=== PATIENT | male | born 1945 | race Caucasian/White ===

== ENCOUNTER → 2022-01-10 | Day surgery (SDC) | payer OTHER, MEDICARE ==
[~2022-01-10] MED LIST: NA CHLORIDE 0.9% 250 ML ONE
[2022-01-10 08:35] VITALS: BP 117/81; TEMP 97.8; O2SAT 96; BMI 29.4
[2022-01-10 15:56] LABS: Hematocrit 28.6 % (39.6-49.0)
== END ==
LOC: DS 07:10
PROVIDERS: ATTEND Internal Medicine Hematology & Oncology
DX: D50.9 Iron deficiency anemia, unspecified (principal); C22.8 Malignant neoplasm of liver, primary, unspecified as to type; D69.6 Thrombocytopenia, unspecified; K74.69 Other cirrhosis of liver; K76.6 Portal hypertension; K76.9 Liver disease, unspecified; D50.0 Iron deficiency anemia secondary to blood loss (chronic)
CPT/HCPCS: 36415; 86900; 86850; 86901; 85018; 85014; 36430; P9016 ×2; J7050

== ENCOUNTER 2022-03-08 10:47 | Emergency (ER) | payer OTHER ==
--- OUTSIDE RECORDS SUMMARY | 2022-03-08 10:51 | XMS REPORT | Continuity of Care Document ---
:1945 Author Organization [facility] t Address [address] [place] [address] [address]. [address] [place] [address] Care Team Providers Name Role Phone GEORGI VALERIE Primary Care Physician Unavailable Alex Poole MD Attending Clinician ALEX POOLE Attending Clinician Unavailable Pob1, Acute Care Clinic Attending Clinician Unavailable Cari Sandoval Attending Clinician Nathan Adams PA-C Attending Clinician Lab, Adc Fam Pob I Attending Clinician Unavailable Edilma Laura Attending Clinician EDILMA FLOR Attending Clinician Unavailable ALEX POOLE Admitting Clinician Unavailable Payers Payer Name Policy Type Policy Number Effective Date Expiration Date S ource Problems Condition Condition Condition Status Onset Resolution Last Treating Co mments Source Name Details Category Date Date Treatment Clinician Date Diskitis Diskitis Disease Active Metho di 10-18 00:00: Hospita 00 l No known No known Disease Unive rs active active ity of problems problems [facility] Allergies, Adverse Reactions, Alerts Allergy Allergy Status Severity Reaction(s) Onset Inactive Treating Comm ents Source Name Type Date Date Clinician NO KNOWN Drug Active Univers ALLERGIE Class ity of S [facility] Social History Social Habit Start Date Stop Date Quantity Comments Source Exposure to 2021-12-01 2021-12-11 Not sure University SARS-CoV-2 00:00:00 13:24:00 [facility] (event) [place] Alcohol intake 2016-01-15 2016-01-15 Current [facility] 00:00:00 00:00:00 non-drinker of alcohol (finding) Tobacco use and 2016-01-11 2016-01-11 Smokeless tobacco [facility] exposure 00:00:00 00:00:00 non-user Tobacco Comment 2016-01-11 2016-01-11 quit cigars about [facility] 00:00:00 00:00:00 4 years ago History of 1996-01-11 Cigarette Smoker [facility] tobacco use 00:00:00 Sex Ass[birth year] [facility] 00:00:00 00:00:00 Smoking Status Start Date Stop Date Source Tobacco smoking [facility] consumption unknown Medical [facility] Ex-smoker 2016-01-11 00:00:00 2016-01-11 [facility] 00:00:00 Medications Ordered Filled Start Stop Current Ordering Indication Dosage Frequency Signature Comments Components Source Medication Medication Date Date Medication? Clinician (SIG) Name Name iopamidol 2021- No [id number] 110mL 110 mL, Univers (ISOVUE 12-11 Intravenou ity o f 370-500 mL) 20:45: 20:45 s, ONCE, 1 [place] injection 00 :00 dose, On Medica l 110 mL Tue [place] 12/11/21 at 1545, Routine metFORMIN Yes 1000mg Q.[id number] Take 1,000 Methodi (GLUCOPHAGE 01-10 [id number] mg by s t ) 1000 MG 14:58: 3D mouth 3 Hospi ta tablet 37 (three) l times a day. gabapentin Yes 400mg Q.72415190 Take 400 [facility] (NEURONTIN) 01-10 [id number] mg by s t 400 MG 14:58: 3D mouth 3 Hospita capsule 37 (three) l times a day. pravastatin 2015- Yes 40mg QD Take 40 mg Method[facility] (PRAVACHOL) 01-[address] 40 MG 14:58: daily. Hospita tablet 37 l sertraline Yes 100mg QD Take 100 Me thodi (ZOLOFT) 9-[address] 100 MG 14:58: mouth Hospita tablet 37 daily. l tamsulosin 2016-0 Yes .4mg QD Take 0.4 Met hodi (FLOMAX) 9-[address] 0.4 mg 14:58: mouth Hospita capsule,ext 37 daily. l ended release 24hr potassium 2016-0 Yes 10meq Q.5D Take 10 Meth danis chloride 9-[address] (K-DUR,KLOR 14:58: mouth 2 Hos boby -CON) 10 37 (two) l MEQ CR times a tablet day. losartan 2016-0 Yes 25mg QD Take 25 mg Met hodi (COZAAR) 50 -[address] MG tablet 14:58: daily. Hospit a 37 l finasteride 2015-0 Yes 5mg QD Take 5 mg M ethodi (PROSCAR) [address] mg tablet 14:58: daily. Hospit a 37 l hydrochloro 0 Yes 25mg QD Take 25 mg Method[facility] thiazide [address] (HYDRODIURI 14:58: daily. Hosp briana L) 25 MG 37 l tablet propranolol 0 Yes 40mg Take 40 mg [facility] (INDERAL) 01-[address] 40 MG 14:58: daily. Hospita tablet 37 l cyanocobala 0 Yes 100ug QD Take 100 M ethodi min 100 MCG - mcg by st tablet 14:58: mouth Hospita 37 daily. l insulin 0 Yes 25U QD 25 Units Method i detemir [address] (LEVEMIR) 14:58: Hospita 100 unit/mL 37 l injection esomeprazol 0 Yes 40mg QD Take 40 mg Methodi e (NexIUM) 01-[address] 40 MG 14:58: daily Hospita capsule 37 before l breakfast. therapeutic 2015-0 Yes 1{tbl} QD Take 1 Me thodi multivitami - tablet by st n 14:58: mouth Hospita (THERAGRAN) 37 daily. l tablet dorzolamide 0 Yes 1[drp] Q.5D Administer Methodi -timolol 01-[address] (COSOPT) 14:58: both eyes Hosp briana 22.3-6.8 37 2 (two) l mg/mL times a ophthalmic day. solution AMOXICILLIN 2016-0 Yes Q.5D Take by Met hodi ORAL -[address] 14:58: (two) Hospita 37 times a l day. pravastatin 2016-0 Yes 40mg QD Take 40 mg Method[facility] (PRAVACHOL) 9-[address] 40 MG 14:58: daily. Hospita tablet 37 l sertraline 2016-0 Yes 100mg QD Take 100 Me thodi (ZOLOFT) 9-[address] 100 MG 14:58: mouth Hospita tablet 37 daily. l tamsulosin 2016-0 Yes .4mg QD Take 0.4 Met hodi (FLOMAX) 9-[address] 0.4 mg 14:58: mouth Hospita capsule,ext 37 daily. l ended release 24hr potassium 2016-0 Yes 10meq Q.5D Take 10 Meth danis chloride 9-[address] (K-DUR,KLOR 14:58: mouth 2 Hos boby -CON) 10 37 (two) l MEQ CR times a tablet day. losartan 2016-0 Yes 25mg QD Take 25 mg Met hodi (COZAAR) 50 9-[address] MG tablet 14:58: daily. Hospit a 37 l finasteride 2016-0 Yes 5mg QD Take 5 mg M ethodi (PROSCAR) 5 9-[address] mg tablet 14:58: daily. Hospit a 37 l hydrochloro 2016-0 Yes 25mg QD Take 25 mg Methodi thiazide -[address] (HYDRODIURI 14:58: daily. Hosp briana L) 25 MG 37 l tablet propranolol 20160 Yes 40mg Take 40 mg Method[facility] (INDERAL) 9-[address] 40 MG 14:58: daily. Hospita tablet 37 l cyanocobala 2016-0 Yes 100ug QD Take 100 M ethodi min 100 MCG 9-[address] tablet 14:58: mouth Hospita 37 daily. l insulin 2016-0 Yes 25U QD 25 Units Method i detemir 9-[address] (LEVEMIR) 14:58: Hospita 100 unit/mL 37 l injection esomeprazol 2016-0 Yes 40mg QD Take 40 mg Methodi e (NexIUM) 9-[address] 40 MG 14:58: daily Hospita capsule 37 before l breakfast. therapeutic 2016-0 Yes 1{tbl} QD Take 1 Me thodi multivitami 9-[address] n 14:58: mouth Hospita (THERAGRAN) 37 daily. l tablet dorzolamide Yes 1[drp] Q.5D Administer Methodi -timolol 01-[address] (COSOPT) 14:58: both eyes Hosp briana 22.3-6.8 37 2 (two) l mg/mL times a ophthalmic day. solution AMOXICILLIN Yes Q.5D Take by Met hodi ORAL 01-[address] 14:58: (two) Hospita 37 times a l day. metFORMIN Yes 1000mg Q.[id number] Take 1,000 Method[facility] (GLUCOPHAGE 01-10 [id number] mg by s t ) 1000 MG 14:58: 3D mouth 3 Hospi ta tablet 37 (three) l times a day. gabapentin Yes 400mg Q.[id number] Take 400 Method[facility] (NEURONTIN) 01-10 [id number] mg by s t 400 MG 14:58: 3D mouth 3 Hospita capsule 37 (three) l times a day. latanoprost Yes 1[drp] QD Administer Methodi (XALATAN) 10-[address] 0.005 % 00:00: both eyes Hospi ta ophthalmic 00 nightly. l solution latanoprost Yes 1[drp] QD Administer Methodi (XALATAN) 10-[address] 0.005 % 00:00: both eyes Hospi ta ophthalmic 00 nightly. l solution No known No Univers medications [facility] No known No Univers medications [facility] No known No Univers medications [facility] Vital Signs Vital Name Observation Time Observation Value Comments Source Systolic blood 2021-12-11 19:56:00 147 mm[Hg] [facility] Diastolic blood 2021-12-11 19:56:00 88 mm[Hg] Unive [facility] Heart rate 2021-12-11 19:56:00 78 /min Universi [facility] Respiratory rate 2021-12-11 19:56:00 13 /min [facility] Oxygen saturation in 2021-12-11 19:56:00 96 /min [facility] Arterial blood by [facility] Pulse oximetry Branch Body temperature 2021-12-11 17:37:00 36.06 Deepika [facility] Body height 2021-12-11 17:37:00 180.3 cm [facility] Body weight 2021-12-11 17:37:00 91.627 kg [facility] BMI 2021-12-11 17:37:00 28.17 kg/m2 [facility] Systolic blood 2019-10-18 19:49:00 149 mm[facility]Hg[facility] Diastolic blood 2019-10-18 19:49:00 87 mm[Hg] [facility] Heart rate 2019-10-18 19:49:00 81 /min [facility] Body temperature 2019-10-18 19:49:00 36.17 Deepika [facility] Respiratory rate 2019-10-18 19:49:00 16 /min [facility] Oxygen saturation in 2019-10-18 19:49:00 97 /min [facility] blood by [facility] Pulse oximetry Branch Procedures Procedure Date / Time Performing Clinician Source Performed ABORH CONFIRMATION (LAB 2021-12-11 19:45:00 Alex Poole [facility] ONLY) Medical [place] CT ANGIOGRAM 2021-12-11 19:36:42 Alex Poole [facility] ABDOMEN/PELVIS [facility] XR CHEST 1 VW 2021-12-11 18:35:31 [facility] LACTIC ACID WHOLE BLOOD 2021-12-11 18:21:00 Alex Poole [facility] HB ABO GROUPING 2021-12-11 18:20:00 [facility] Alex [facility] LIPASE 2021-12-11 18:19:00 [facility] TROPONIN I 2021-12-11 18:19:00 [facility] COMP. METABOLIC PANEL 2021-12-11 18:19:00 Alex Poole [facility] ([id number]) Medical [place] CBC WITH DIFF 2021-12-11 18:19:00 [facility] Alex [facility] PROTHROMBIN TIME / INR 2021-12-11 18:19:00 Alex Poole Unive [facility] ACTIVATED PARTIAL 2021-12-11 18:19:00 Alex Poole [facility] THRMPLAS VIKKI [facility] URINALYSIS 2021-12-11 18:19:00 Alex Poole [place] [facility] N-TERMINAL PRO-BNP 2021-12-11 18:19:00 Alex Poole [facility] NOTICE OF PRIVACY 2021-12-11 17:30:58 Doctor Unassigned, No Univ [facility] PRACTICES Name [facility] Plan of Care Planned Activity Planned Date Details Comments Source Future Scheduled 2022-02-21 HEPATITIS B VACCINES [facility] Test 05:20:07 (1 of 3 - 3-dose series) [code = HEPATITIS B VACCINES (1 of 3 - 3-dose series)] Future Scheduled 2022-02-21 COVID-19 VACCINE (#1) [facility] Test 05:20:07 [code = COVID-19 VACCINE (#1)] Future Scheduled 2022-02-21 COLONOSCOPY SCREENING [facility] Test 05:20:07 [code = COLONOSCOPY SCREENING] Future Scheduled 2022-02-21 SHINGLES VACCINES (1 Met [facility] Test 05:20:07 of 2) [code = SHINGLES VACCINES (1 of 2)] Future Scheduled 2022-02-21 65+ PNEUMOCOCCAL [facility] Test 05:20:07 VACCINE (1 - PCV) [code = 65+ PNEUMOCOCCAL VACCINE (1 - PCV)] Future Scheduled 2022-02-21 INFLUENZA VACCINE Method [facility] Test 05:20:07 [code = INFLUENZA VACCINE] Future Scheduled 2021-12-19 HEPATITIS B VACCINES Met [facility] Test 20:37:05 (1 of 3 - 3-dose series) [code = HEPATITIS B VACCINES (1 of 3 - 3-dose series)] Future Scheduled 2021-12-19 COVID-19 VACCINE (#1) [facility] Hospital Test 20:37:05 [code = COVID-19 VACCINE (#1)] Future Scheduled 2021-12-19 COLONOSCOPY SCREENING [facility] Test 20:37:05 [code = COLONOSCOPY SCREENING] Future Scheduled 2021-12-19 SHINGLES VACCINES (1 [facility] Test 20:37:05 of 2) [code = SHINGLES VACCINES (1 of 2)] Future Scheduled 2021-12-19 65+ PNEUMOCOCCAL Methodi [facility] Test 20:37:05 VACCINE (1 - PCV) [code = 65+ PNEUMOCOCCAL VACCINE (1 - PCV)] Future Scheduled 2021-12-19 INFLUENZA VACCINE Method [facility] Test 20:37:05 [code = INFLUENZA VACCINE] Encounters Start End Encounter Admission Attending Care Care Encounter Source Date/Time Date/Time Type Type Clinicians Facility Department ID 2021-12-11 2021-12-11 [facility] [id number] Univers 12:44:00 15:46:00 Alex AMOR [id number] i [facility] [id number] [phone] [place] [id number] Branch 2021-12-11 2021-12-11 Emergency [facility] E[facility] [id number] Univers 12:44:00 15:46:00 ALEX moreno [facility] 2019-10-18 2019-10-30 Urgent Pob1, Acute Care Clinic [facility] [id number]. [id number] Univers 14:46:42 16:21:40 Care [facility] [id number] ity of [place] [id number] Nando as Professio [phone] [facility] nal [address] [place] [address] Office Building One 2019-10-20 2019-10-20 [facility]phone [facility] [id number] Univers 00:00:00 00:00:00 [facility] [id number] it y of [place] [id number] Nando as Professio [phone] Ne dical nal [address] [place] [address] Office Building One 2019-10-18 2019-10-18 Laboratory Lab, Adc Fam Pob I [facility] 1.2. [id number] Univers 14:38:53 14:58:53 Only Chacho Edilma [facility] [id number] ity of [place] [id number] [place]ando as Professio [phone] [facility] nal [address] [place] [address] Office Building One 2019-10-18 2019-10-18 Outpatient R CHACHO [facility] [id number] Univers 14:40:00 14:40:00 EDILMA [facility] 2019-10-18 2019-10-18 Outpatient R [facility] [id number] Univers 14:40:00 14:40:00 [facility] Results Test Description Test Time Test Comments Results Result Comments Source ABORH Confirmation (Lab Only) 2021-12-11 20:16:20 Test Item Value Reference Range Interpretation Comme nts ABO & RH (test code = 20) B Positive Pe rformed at [facility] Laboratory Services - [facility] Blood Hlwj[address]Toll Free: [phone] A No. [id number] [facility] Screen - ONCE [id number] 19:30:27 Test Item Value Reference Range Interpretation Comments ABO & RH (test code B Positive Performe d at [facility] = 20) Laboratory Serv [facility] Blood Bank[address] [place], [place] [address]Toll Free: [phone] A No. [id number] IAT (test code = Negative Performed a t [facility] 1185) Laboratory Serv [facility] Blood Bank1 [address] [place], [place] [address]Toll Free: [phone] A No. [id number] [facility] [id number] 19:05:15 Test Item Value Reference Interpretation Comments Range TROPONIN I (test 0.004 ng/mL See_Comment [Automated code = 2836855677) message] The system which generated this result transmitted reference range : <=0.034. The reference range was not used to interpret this result as normal/abnormal . MYKEL (test code = Reference (Normal) MYKEL) Range (defined by the 99th percentile reference limit): <= 0.034 ng/mL Note: Cardiac troponin begins to rise 3-4 hours after the onset of ischemia. Repeat in 4-6 hours if the sample was drawn within 3-4 hours of the onset of the symptom and found normal. Diagnosis of myocardial injury is made with acute changes in cTn concentrations with at least one serial sample above the 99th percentile upper reference limit (URL), taken together with the patient's clinical presentation. Biotin has been reported to cause a negative bias, interpret results relative to patient's use of biotin. Lab Interpretation Normal (test code = 60810-5) [facility]MINAL [id number] 19:01:53 Test Item Value Reference Range Interpretation Comments NT-proBNP (test code 140 pg/mL See_Comment [Autom ated = 2246103901) message] The system which generated this result transmitted reference range : <=450. The reference range was not used to interpret this result as normal/abnormal . MYKEL (test code = MYKEL) Biotin has been reported to cause a negative bias, interpret results relative to patient's use of biotin. Lab Interpretation Normal (test code = 43044-3) [facility]. METABOLIC PANEL (06193)2021-12-11 18:54:15 Test Item Value Reference Range Interpretation Comments NA (test code = 138 mmol/L 135-145 2767255700) K (test code = 4.0 mmol/L 3.5-5 7059655475) CL (test code = 103 mmol/L 98-108 6348593409) CO2 TOTAL (test code = 31 mmol/L 23-31 4727647743) AGAP (test code = 2-16 0640686615) BUN (test code = 19 mg/dL 7-23 8458485591) GLUCOSE (test code = 141 mg/dL 70-110 H 3900402019) CREATININE (test code = 0.53 mg/dL 0.6-1.25 L 9615851675) TOTAL BILI (test code = 1.7 mg/dL 0.1-1.1 H 4026362211) CALCIUM (test code = 9.0 mg/dL 8.6-10.6 8043598375) T PROTEIN (test code = 5.5 g/dL 6.3-8.2 L 0233467931) ALBUMIN (test code = 3.7 g/dL 3.5-5 2751667583) ALK PHOS (test code = 91 U/L 34-122 3829796310) ALTv (test code = 26 U/L 5-50 1742-6) AST(SGOT) (test code = 29 U/L 13-40 4619128727) eGFR (test code = mL/min/1.73m2 4849530067) MYKEL (test code = MYKEL) Association of Glomerular Filtration Rate (GFR) and Staging of Kidney Disease* + --+ --+ ------+| GFR (mL/min/1.73 m2) ?| With Kidney Damage ?| ?Without Kidney Damage+ --------+ --------+ +| ?>90 ?| ?Stage one ?| ? Normal ?+ ---+ ---+ -------+| ?60-89 ?| ?Stage two ?| ? Decreased GFR ? + --+ --+ ------+| ?30-59 ?| ?Stage three ?| ? Stage three ? + --+ --+ ------+| ?15-29 ?| ?Stage four ? | ? Stage four ?+ ---+ ---+ -------+| ?<15 (or dialysis) ? ?| ?Stage five ? | ? Stage five ?+ ---+ ---+ -------+ *Each stage assumes the associated GFR level has been in effect for at least three months. ?Stages 1 to 5, with or without kidney disease, indicate chronic kidney disease. Notes: Determination of stages one and two (with eGFR >59mL/min/1.73 m2) requires estimation of kidney damage for at least three months as defined by structural or functional abnormalities of the kidney, manifested by either:Pathological abnormalities or Markers of kidney damage (including abnormalities in the composition of the blood or urine or abnormalities in imaging tests). Lab Interpretation Abnormal (test code = 06032-6) [facility] 18:54:15 Test Item Value Reference Range Interpretation Comments LIPASE (test code = 0342169691) 115 U/L 0-220 Lab Interpretation (test code = Normal 02479-0) [facility] DistrictACTIV[facility] PARTIAL THRMPLAS [id number] 18:50:55 Test Item Value Reference Range Interpretation Comments APTT Patient (test See_Comment [Automat ed code = 3173-2) message] The system which generated this result transmitted reference range : 23 - 38 Seconds . The reference range was not used to interpr et this result as normal/abnormal . MYKEL (test code = MYKEL) The [facility] patient population mean normal value for aPTT is 30 seconds. Lab Interpretation Normal (test code = 01881-6) [facility] DistrictPROTHROMBIN TIME / [id number] 18:48:51 Test Item Value Reference Range Interpretation Comments PROTIME PATIENT (test See_Comment [Auto mated message] code = 5964-2) The system wh ich generated this result transmitted ref erence range: 12.0 - 1 4.7 Seconds. The re ference range was not u sed to interpret this result as normal/abnor mal. INR (test code = 6301-6) Nor mal INR <1.1; Warfarin Therap eutic range 2.0 to 3. 0 or 2.5 to 3.5, dep ending upon the indica tions. Lab Interpretation (test Normal code = 84049-6) [facility] DistrictCB WITH [id number] 18:41:33 Test Item Value Reference Range Interpretation Comments WBC (test code = See_Comment L [Automated 6690-2) message] The sy stem which generated this result transmitted reference range : 4.20 - 10.70 10*3/?L. The reference range was not used to interpret this result as normal/abnormal . RBC (test code = See_Comment L [Automated 789-8) message] The sy stem which generated this result transmitted reference range : 4.26 - 5.52 10*6/?L. The reference range was not used to interpret this result as normal/abnormal . HGB (test code = 8.7 g/dL 12.2-16.4 L 718-7) HCT (test code = 29.3 % 38.4-49.3 L 4544-3) MCV (test code = 84.7 fL 81.7-95.6 787-2) MCH (test code = 25.1 pg 26.1-32.7 L 785-6) MCHC (test code = 29.7 g/dL 31.2-35 L 786-4) RDW-SD (test code = 78.1 fL 38.5-51.6 H 36734-5) RDW-CV (test code = 26.1 % 12.1-15.4 H 788-0) PLT (test code = See_Comment L [Automated 777-3) message] The sy stem which generated this result transmitted reference range : 150 - 328 10*3/ ?L. The reference r karolina was not used to interpret this result as normal/abnormal . MPV (test code = 10.1 fL 9.8-13 90119-8) NRBC/100 WBC (test See_Comment [Automat ed code = 7223965576) message] The system which generated this result transmitted reference range : 0.0 - 10.0 /100 WBCs. The refer ence range was not u sed to interpret th is result as normal/abnormal . NRBC x10^3 (test code See_Comment [Auto mated = 8241037686) message] The s ystem which generated this result transmitted reference range : 10*3/?L. The reference range was not used to interpret this result as normal/abnormal . GRAN MAT (NEUT) % 74.1 % (test code = 770-8) IMM GRAN % (test code 0.50 % = 7809994212) LYMPH % (test code = 13.8 % 736-9) MONO % (test code = 7.7 % 5905-5) EOS % (test code = 3.4 % 713-8) BASO % (test code = 0.5 % 706-2) GRAN MAT x10^3(ANC) 3.07 10*3/uL 1.99-6.95 (test code = 3378777845) IMM GRAN x10^3 (test 0-0.06 code = 2391353671) LYMPH x10^3 (test code 0.57 10*3/uL 1.09-3.23 L = 731-0) MONO x10^3 (test code 0.32 10*3/uL 0.36-1.02 L = 742-7) EOS x10^3 (test code = 0.14 10*3/uL 0.06-0.53 711-2) BASO x10^3 (test code 0.01-0.09 = 704-7) Lab Interpretation Abnormal (test code = 10043-7) [facility]"
--- NOTE | 2022-03-08 12:20 | RAD REPORT ---
EXAM DESCRIPTION: CT - Abdomen Pelvis Wo Contrast - 03/08/2022 12:06 pm CLINICAL HISTORY: Abdominal pain, acute, nonlocalized COMPARISON: Chest Abdomen Pelvis W Cont dated 01/24/2022 TECHNIQUE: Axial [address] imaging of the abdomen and pelvis was performed without IV contrast. No IV contrast was given because of allergy, abnormal renal function, patient refusal or physician re quest. No oral contrast administered. All CT scans are performed using dose optimization technique as appropriate and may include automated exposure control or mA/KV adjustment according to patient size. FINDINGS: No acute lung base finding. No cardiomegaly or pericardial effusion. Liver size is normal. There is nodular liver capsule contour typical for cirrhosis or other diffuse h epatic parenchymal disease process. Punctate calcifications seen in the inferior aspect of the right lobe without associated mass. Mass assessment is limited in the absence of IV contrast. Spleen is pro minent but no focal splenic abnormality seen. No pancreatic or peripancreatic abnormality seen. Vascu lar calcifications are seen on vessels traversing the pancreatic and peripancreatic tissues. No hydronephrosis or suspicious renal mass. An 8 centimeter cyst is seen in the upper pole of the rig ht kidney. A 3 centimeter cyst is present in the lateral lower pole of the right kidney. No significa nt adrenal finding. Isodense renal masses and pyelonephritis cannot be excluded in the absence of IV contrast. The urinary bladder is without significant finding. Gastric lumen is decompressed accentuating wall thickness. No gross evidence for a gastric wall abnor mality. No acute small bowel finding. A primary colon process is not seen. There are areas of perista ltic luminal narrowing. No gross evidence for a colon mass. No free air or pneumatosis. Mild to moderate amount of ascites is present in the patient. No free ai r or pneumatosis. No hernia, mass or bulky lymphadenopathy. Disc and bone degenerative changes are present. No acute findings seen. 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 Moderate ascites also similar to the prior examination. No acute GI process is evident. No acute or emergent findings evident as a change from January 24 exam . Full assessment is limited is the absence of IV contrast.
[2022-03-08 12:29] LABS: Absolute Lymphocytes (CBC) 0.8 K/uL (0.7-4.9); Lymphocytes % 14.7 % (15.3-44.8); MCV 78.1 fL (80-100); RBC Red Blood Cell Count 2.56 M/uL (4.33-5.43)
[2022-03-08 12:32] LABS: Protime INR 1.27
[2022-03-08] MEDS ORDERED: PANTOPRAZOLE 40 MG INJ ONE ×2 (12:40→14:57)
[2022-03-08 12:58] LABS: Anisocytosis 2+; Blood Morphology Comment NOTED (NOT SEEN); Hypochromasia 2+; Platelet Estimate ADEQ; White Blood Cell Scan OK (OK)
[2022-03-08 13:12] LABS: SARS-CoV-2 Antigen Rapid Res Negative (Negative)
--- NOTE | 2022-03-08 13:39 | RAD REPORT ---
EXAM DESCRIPTION: RAD - Chest Single View - 03/08/2022 1:18 pm CLINICAL HISTORY: COUGH COMPARISON: Chest Single View dated 01/24/2022 FINDINGS: Lines: None. Lungs: No evidence of edema or pneumonia. Pleural: No significant pleural effusions or pneumothorax. Cardiac: The heart size is within normal limits. Mediastinum: Within normal limits. Bones: No acute fractures. Other: None IMPRESSION: No acute cardiopulmonary disease.
[2022-03-08 13:58] LABS: Albumin 2.8 g/dL (3.4-5.0); Bilirubin Direct 0.4 mg/dL (0-0.2); Bilirubin Total 1.1 mg/dL (0.2-1.0); Magnesium 1.6 mg/dL (1.8-2.4); Protein, Total 6.1 g/dL (6.4-8.2)
[2022-03-08 14:20] LABS: Troponin High Sensitivity 8.6 pg/mL (<58.9)
[2022-03-08] MEDS ORDERED: VITAMIN K (ADULT) 10 MG/ML ONE (14:56)
[2022-03-08] MEDS ORDERED: NA CHLORIDE 0.9% 250 ML ONE ×2 (14:57→16:11)
[2022-03-08] MEDS ORDERED: MAGNESIUM SULFATE 1 gm IVPB 1 GM/100 ML BAG IV ONE (14:57)
[2022-03-08] MEDS ORDERED: OCTREOTIDE ACETATE 100 MCG/ML ONE (14:58)
[2022-03-08] MEDS ORDERED: NA CHLORIDE 0.9% 1,000 ML ONE (14:58)
--- NOTE | 2022-03-08 15:13 | ER ---
Nurse's Notes [facility] Name: Abdoulaye Mcdonald Age: 76 yrs Sex: Male : 1945 Arrival Date: 03/08/2022 Time: 10:51 Bed 14 Private MD: Diagnosis: Other cirrhosis of liver;GI Bleed/ Gastrointestinal hemorrhage, unspecified;Anemia, unspecified;Hypomagnesemia Presentation: 03/08 11:38 Chief complaint: Patient states: DR Aburto sent over for "low blood" Pt stated feeling vg1 weak, burning CP and SOB. Also stated dark stools x 2 weeks and when wipe notices dark red blood. Coronavirus screen: Vaccine status: Patient reports receiving the 2nd dose of the covid vaccine. Client denies travel out of the [place] in the last 14 days. Ebola Screen: Patient negative for fever greater than or equal to 101.5 degrees Fahrenheit, and additional compatible Ebola Virus Disease symptoms. Initial Sepsis Screen: Does the patient meet any 2 criteria? No. Patient's initial sepsis screen is negative. Does the patient have a suspected source of infection? No. Patient's initial sepsis screen is negative. Risk Assessment: Do you want to hurt yourself or someone else? Patient reports no desire to harm self or others. Onset of symptoms was March 08, 2022. 11:38 Method Of Arrival: Ambulatory vg1 11:38 Acuity: BRANDON 3 vg1 Triage Assessment: 11:40 General: Appears uncomfortable, Behavior is calm, cooperative. Pain: Complains of pain vg1 in chest Pain currently is 5 out of 10 on a pain scale. Quality of pain is described as burning. Neuro: Level of Consciousness is awake, alert, obeys commands, Oriented to person, place, time, situation. GI: Abdomen is round distended, Reports bloody stool. Historical: - PMHx: 11:40 cirrhosis of liver; diabetes mellitus; Hypertensive disorder; vg1 - PSHx: 11:40 Cholecystectomy; back; vg1 - Immunization history:: Client reports receiving the 2nd dose of the Covid vaccine. - Social history:: Smoking status: Patient/guardian denies using tobacco, the patient reports quitting approximately 10 years ago. - Family history:: not pertinent. Screenin:00 Nutritional screening: No deficits noted. Tuberculosis screening: No symptoms or risk ke1 factors identified. Fall Risk None identified. 20:23 Abuse screen: Denies threats or abuse. ke1 Assessment: 11:45 Reassessment: see triage note. kr3 12:45 Reassessment: No changes from previously documented assessment. Patient and/or family kr3 updated on plan of care and expected duration. Pain level reassessed. Patient is alert, oriented x 3, equal unlabored respirations, skin warm/dry/pink. 13:45 Reassessment: No changes from previously documented assessment. Patient and/or family kr3 updated on plan of care and expected duration. Pain level reassessed. Patient is alert, oriented x 3, equal unlabored respirations, skin warm/dry/pink. 14:45 Reassessment: No changes from previously documented assessment. Patient and/or family kr3 updated on plan of care and expected duration. Pain level reassessed. Patient is alert, oriented x 3, equal unlabored respirations, skin warm/dry/pink. 15:45 Reassessment: No changes from previously documented assessment. Patient and/or family kr3 updated on plan of care and expected duration. Pain level reassessed. Patient is alert, oriented x 3, equal unlabored respirations, skin warm/dry/pink. 16:45 Reassessment: No changes from previously documented assessment. Patient and/or family kr3 updated on plan of care and expected duration. Pain level reassessed. Patient is alert, oriented x 3, equal unlabored respirations, skin warm/dry/pink. 17:45 Reassessment: No changes from previously documented assessment. Patient and/or family kr3 updated on plan of care and expected duration. Pain level reassessed. Patient is alert, oriented x 3, equal unlabored respirations, skin warm/dry/pink. 18:23 Reassessment: No changes from previously documented assessment. Patient and/or family kr3 updated on plan of care and expected duration. Pain level reassessed. Patient is alert, oriented x 3, equal unlabored respirations, skin warm/dry/pink. 20:22 Reassessment: unable to give mag incompatible with protonix and blood on the other line.ke1 20:25 Reassessment: 1939 Blood started. 10 mn later Ems arrived to picker patient, EMS will ke1 monitor blood transfusion. Vital Signs: 11:38 BP 143 / 101; Pulse 75; Resp 20; Temp 98.2; Pulse Ox 100% ; Weight 94.35 kg; Height 5 vg1 ft. 11 in. (180.34 cm); Pain 5/10; 12:45 BP 109 / 91; Pulse 81; Resp 18; Pulse Ox 100% on R/A; kr3 13:45 BP 116 / 59; Pulse 74; Resp 18; Pulse Ox 100% ; kr3 14:45 BP 115 / 60; Pulse 76; Resp 18; Pulse Ox 100% on R/A; kr3 15:45 BP 126 / 63; Pulse 79; Resp 18; Pulse Ox 100% ; kr3 16:45 BP 138 / 65; Pulse 80; Resp 18; Pulse Ox 100% ; kr3 17:45 BP 135 / 80; Pulse 82; Resp 18; Pulse Ox 99% on R/A; kr3 19:55 BP 124 / 70; Pulse 80; Resp 17; Temp 97.8(O); Pulse Ox 98% on R/A; Pain 0/10; ke1 11:38 Body Mass Index 29.01 (94.35 kg, 180.34 cm) vg1 ED Course: 10:51 Patient arrived in ED. as 11:40 Triage completed. vg1 11:40 Arm band placed on. vg1 11:46 Yasir Marie MD is Attending Physician. [facility] 12:07 CT Abd/Pelvis - Without Contrast In Process Unspecified. EDMS 12:10 Alexandra Villanueva, JANETT is Primary Nurse. kr3 12:28 Initial lab(s) drawn, by me, sent to lab. COVID swab sent to lab. T\\T\\S collected, blood jw7 band applied to patient. Inserted saline lock: 20 gauge in right antecubital area, using aseptic technique. Blood collected. 13:19 XRAY Chest (1 view) In Process Unspecified. EDMS 14:55 Inserted saline lock: 20 gauge in left antecubital area, using aseptic technique. kr3 15:30 AMMONIA Sent. kr3 15:31 Bb Add On Sent. kr3 16:10 have attempted to reach someone from the [facility] in attempt to transfer eb the patient but have been unsuccessful for over an hour. 16:13 intiated a transfer with Angela from the [place] transfer Center. eb 17:00 administrative approval by Angela Daniels / patient has been accepted to the [place] ER/ Dr. nani Gerardo has accepted the patient without conference with Dr. Marie/ report to be called to [phone]. 19:00 Bed in low position. ke1 20:23 No provider procedures requiring assistance completed. Patient transferred, IV remains ke1 in place. Administered Medications: 13:10 Drug: ProTONIX (pantoprazole) 80 mg Route: IVP; Site: right antecubital; kr3 15:45 Drug: ProTONIX (pantoprazole) 8 mg/hr Route: IV; Rate: 25 ml/hr; Site: right kr3 antecubital; 15:45 Drug: NS 0.9% 250 ml Route: IV; Rate: bolus; Site: right antecubital; kr3 15:45 Drug: NS 0.9% 1000 ml Route: IV; Rate: 125 ml/hr; Site: right antecubital; kr3 17:40 Drug: Vitamin K1 (phytonadione) 10 mg Route: Sub-Q; Site: right lower abdomen; kr3 17:45 Drug: SandoSTATIN (octreotide) 50 mcg Route: IV; Rate: calculated rate; Site: left kr3 antecubital; 19:49 Drug: SandoSTATIN (octreotide) 25 mcg/h Route: IV; Rate: per protocol; Site: right ke1 antecubital; Medication: 20:24 VIS not applicable for this client. ke1 Outcome: 15:12 ER care complete, transfer ordered by MD. hernandez 20:23 Transferred by ground EMS to [facility]. ke1 20:23 Condition: stable 20:23 Instructed on the need for transfer. 20:27 Patient left the ED. ke1 Signatures: Dispatcher [employer] EDYasir Garcia MD MD cha Martinez, Amelia as Botello, Elizabeth eb Garcia, Victoria, RN RN Katja Rose Kouassi, RN RN ke1 Alexandra Villanueva RN RN kr3 Corrections: (The following items were deleted from the chart) 18:23 18:22 Reassessment: kr3 kr3 18:23 18:23 Reassessment: see triage note. kr3 kr3
--- NOTE | 2022-03-08 15:13 | EDPHYS ---
Physician Documentation [facility] Name: Abdoulaye Mcdonald Age: 76 yrs Sex: Male : 1945 Arrival Date: 03/08/2022 Time: 10:51 Bed 14 Private MD: REBECCA Physician Yasir Marie HPI: 03/08 14:59 This 76 yrs old Male presents to ER via Ambulatory with complaints of mary Abnormal Lab Results - blood tranfusion. 14:59 The patient has shortness of breath with light activity. Onset: The symptoms/episode mary began/occurred 5 day(s) ago. Duration: The symptoms are continuous, and are unchanged since they started. The patient's shortness of breath is aggravated by exertion, light activity, is alleviated by rest. The patient or guardian reports chest pain that is located primarily in the anterior chest wall, bilaterally. Onset: 5 day(s) ago. The patient presents to the emergency department with rectal bleeding. Abdominal pain: described as crampy, located in the right upper quadrant, left upper quadrant, right lower quadrant and left lower quadrant. Modifying factors: The symptoms are alleviated by nothing, the symptoms are aggravated by nothing. weakness and fatigue, blood per rectum all week. The pain does not radiate. Associated signs and symptoms: Pertinent positives: chest pain, nausea. Severity of symptoms: At their worst the symptoms were mild moderate in the emergency department the symptoms are unchanged. Associated signs and symptoms: The patient has no apparent associated signs or symptoms. Associated signs and symptoms: Pertinent positives: shortness of breath. The chest pain is described as causing indigestion. Historical: - PMHx: 11:40 cirrhosis of liver; diabetes mellitus; Hypertensive disorder; vg1 - PSHx: 11:40 Cholecystectomy; back; vg1 - Immunization history:: Client reports receiving the 2nd dose of the Covid vaccine. - Social history:: Smoking status: Patient/guardian denies using tobacco, the patient reports quitting approximately 10 years ago. - Family history:: not pertinent. ROS: 14:59 Constitutional: Negative for fever, chills, and weight loss, Eyes: Negative for injury, mary pain, redness, and discharge, ENT: Negative for injury, pain, and discharge, Neck: Negative for injury, pain, and swelling, Respiratory: Negative for shortness of breath, cough, wheezing, and pleuritic chest pain, Back: Negative for injury and pain, : Negative for injury, bleeding, discharge, and swelling, MS/Extremity: Negative for injury and deformity, Neuro: Negative for headache, weakness, numbness, tingling, and seizure. 14:59 Cardiovascular: Positive for chest pain, of the chest. 14:59 Respiratory: Positive for cough, shortness of breath. 14:59 Abdomen/GI: Positive for abdominal cramps, abdominal distension, black/tarry stool, rectal bleeding. 14:59 Skin: Positive for pallor. Exam: 15:06 Constitutional: This is a well developed, well nourished patient who is awake, alert, mary and in no acute distress. Head/Face: Normocephalic, atraumatic. Eyes: Pupils equal round and reactive to light, extra-ocular motions intact. Lids and lashes normal. Conjunctiva and sclera are non-icteric and not injected. Cornea within normal limits. Periorbital areas with no swelling, redness, or edema. ENT: Nares patent. No nasal discharge, no septal abnormalities noted. Tympanic membranes are normal and external auditory canals are clear. Oropharynx with no redness, swelling, or masses, exudates, or evidence of obstruction, uvula midline. Mucous membranes moist. Neck: Trachea midline, no thyromegaly or masses palpated, and no cervical lymphadenopathy. Supple, full range of motion without nuchal rigidity, or vertebral point tenderness. No Meningismus. Chest/axilla: Normal chest wall appearance and motion. Nontender with no deformity. No lesions are appreciated. Cardiovascular: Regular rate and rhythm with a normal S1 and S2. No gallops, murmurs, or rubs. Normal PMI, no JVD. No pulse deficits. Respiratory: Lungs have equal breath sounds bilaterally, clear to auscultation and percussion. No rales, rhonchi or wheezes noted. No increased work of breathing, no retractions or nasal flaring. Back: No spinal tenderness. No costovertebral tenderness. Full range of motion. Male : Normal genitalia with no discharge or lesions. MS/ Extremity: Pulses equal, no cyanosis. Neurovascular intact. Full, normal range of motion. Neuro: Awake and alert, GCS 15, oriented to person, place, time, and situation. Cranial nerves II-XII grossly intact. Motor strength 5/5 in all extremities. Sensory grossly intact. Cerebellar exam normal. Normal gait. Psych: Awake, alert, with orientation to person, place and time. Behavior, mood, and affect are within normal limits. 15:06 ECG was reviewed by the Attending Physician. 15:06 Abdomen/GI: Inspection: distension, that is mild, that is moderate, Bowel sounds: normal, Palpation: nontender, in all quadrants, Rectal exam: Prostate: normal, rectal tone normal, Stool: guaiac positive, hemorrhoid(s), are not appreciated, mass, is not appreciated, swelling, is not appreciated, tenderness, is not appreciated, Liver: no appreciated palpable abnormalities, Hernia: not appreciated. Vital Signs: 11:38 BP 143 / 101; Pulse 75; Resp 20; Temp 98.2; Pulse Ox 100% ; Weight 94.35 kg; Height 5 vg1 ft. 11 in. (180.34 cm); Pain 5/10; 12:45 BP 109 / 91; Pulse 81; Resp 18; Pulse Ox 100% on R/A; kr3 13:45 BP 116 / 59; Pulse 74; Resp 18; Pulse Ox 100% ; kr3 14:45 BP 115 / 60; Pulse 76; Resp 18; Pulse Ox 100% on R/A; kr3 15:45 BP 126 / 63; Pulse 79; Resp 18; Pulse Ox 100% ; kr3 16:45 BP 138 / 65; Pulse 80; Resp 18; Pulse Ox 100% ; kr3 17:45 BP 135 / 80; Pulse 82; Resp 18; Pulse Ox 99% on R/A; kr3 19:55 BP 124 / 70; Pulse 80; Resp 17; Temp 97.8(O); Pulse Ox 98% on R/A; Pain 0/10; ke1 11:38 Body Mass Index 29.01 (94.35 kg, 180.34 cm) vg1 MDM: 11:46 Patient medically screened. mary 15:09 Differential diagnosis: Anemia CHF exacerbation, Chronic Obstructive Pulmonary Disease mary abnormal EKG, acute myocardial infarction, Cholelithiasis costochondritis, gastritis, diverticulitis, hemorrhoids, varices, esophagitis, gastritis, gastroesophageal reflux disease (GERD), hiatal hernia, peptic ulcer disease, pneumonia, stable angina, unstable angina, pneumonia, reactive airway disease, Unstable Angina. Antibiotic administration: zosyn. HEART Score: History: Moderately Suspicious (1), ECG: Non specific repolarization disturbance / LBTB / PM (1), Age: > or = 65 years (2), Risk Factors: > or = 3 Risk factors for atherosclerotic disease (2), [Hypercholesterolemia] [Hypertension] [DM] [+ Family HX] Troponin: < or = 1 x Normal Limit (0). The patient was not given aspirin in the Emergency Department. Not indicated due to patient's past medical history. The patient's Wells Deep Vein Thrombosis Score was calculated as follows: Total Score: 0. This patient was found to be at low risk for a deep vein thrombosis by using the Well's assessment criteria Total Score: 0-2 Pts- Low Risk. The patient's pulmonary embolism risk score was calculated as follows: Total Score: 0-2 points. This patient was found to be at low risk for a pulmonary embolism by using the Well's assessment criteria Total Score: 0-2 points. This patient was found to be at low risk for a pulmonary embolism by using the Well's assessment criteria. RADHA Risk Score: 1 - patient's age is greater or equal to 65 years, 1 - Three or more CAD risk factors, 1- Known CAD, TOTAL SCORE = 3. Immunization status: Pneumococcal vaccine: Influenza vaccine: Data reviewed: vital signs, nurses notes, lab test result(s), EKG, radiologic studies, CT scan, plain films. Data interpreted: teletypesetter monitor: rate is 75 beats/min, rhythm is regular, Pulse oximetry: on room air is 75 %. Interpretation: normal. 03/08 11:48 Order name: Basic Metabolic Panel; Complete Time: 14:39 [facility] 03/08 11:48 Order name: CBC with Diff; Complete Time: 14:39 [facility] 03/08 11:48 Order name: LFT's; Complete Time: 14:39 [facility] 03/08 11:48 Order name: Magnesium; Complete Time: 14:39 [facility] 03/08 11:48 Order name: NT PRO-BNP; Complete Time: 14:39 [facility] 03/08 11:48 Order name: PT-INR; Complete Time: 14:39 [facility] 03/08 11:48 Order name: Troponin HS; Complete Time: 14:39 [facility] 03/08 11:48 Order name: Type And Screen [facility] 03/08 11:48 Order name: SARS RAPID; Complete Time: 14:39 [facility] 03/08 11:48 Order name: Lipase; Complete Time: 14:39 [facility] 03/08 12:35 Order name: CBC Smear Scan; Complete Time: 14:39 [facility] 03/08 14:42 Order name: AMMONIA; Complete Time: 18:53 [facility] 03/08 14:47 Order name: Packed RBC Leukored [facility] 03/08 11:48 Order name: XRAY Chest (1 view); Complete Time: 14:39 [facility] 03/08 11:48 Order name: EKG; Complete Time: 11:49 [facility] 03/08 11:48 Order name: Cardiac monitoring; Complete Time: 13:30 [facility] 03/08 11:48 Order name: EKG - Nurse/Tech; Complete Time: 13:30 [facility] 03/08 11:48 Order name: CT Abd/Pelvis - Without Contrast; Complete Time: 14:39 [facility] 03/08 14:51 Order name: Bb Add On ss 03/08 15:41 Order name: Fresh Frozen Plasma [facility] 03/08 11:48 Order name: IV Saline Lock; Complete Time: 12:29 [facility] 03/08 11:48 Order name: Labs collected and sent; Complete Time: 12:29 [facility] 03/08 11:48 Order name: O2 Per Protocol; Complete Time: 13:30 [facility] 03/08 11:48 Order name: O2 Sat Monitoring; Complete Time: 13:30 [facility] 03/08 11:48 Order name: IV Saline Lock - Large Bore; Complete Time: 12:28 [facility] 03/08 14:41 Order name: Transfuse; Complete Time: 17:39 [facility] EC:06 Rate is 76 beats/min. Rhythm is regular. QRS [place] is Normal. RI interval is normal. QT mary interval is normal. No Q waves. T waves are Normal. No ST changes noted. Clinical impression: NSR w/ Non-specific ST/T Changes, LVH, and No evidence of ischemia. Interpreted by me. Reviewed by me. Administered Medications: 13:10 Drug: ProTONIX (pantoprazole) 80 mg Route: IVP; Site: right antecubital; kr3 15:45 Drug: ProTONIX (pantoprazole) 8 mg/hr Route: IV; Rate: 25 ml/hr; Site: right kr3 antecubital; 15:45 Drug: NS 0.9% 250 ml Route: IV; Rate: bolus; Site: right antecubital; kr3 15:45 Drug: NS 0.9% 1000 ml Route: IV; Rate: 125 ml/hr; Site: right antecubital; kr3 17:40 Drug: Vitamin K1 (phytonadione) 10 mg Route: Sub-Q; Site: right lower abdomen; kr3 17:45 Drug: SandoSTATIN (octreotide) 50 mcg Route: IV; Rate: calculated rate; Site: left kr3 antecubital; 19:49 Drug: SandoSTATIN (octreotide) 25 mcg/h Route: IV; Rate: per protocol; Site: right ke1 antecubital; Disposition Summary: 03/08/22 15:12 Transfer Ordered Reason: Higher level of care mary Condition: Fair mary Problem: new mary Symptoms: have improved mary Transfer Location: [facility](03/08/22 17:34) eb Accepting Physician: [facility]. Gerardo [facility](03/08/22 20:27) ke1 Diagnosis - Other cirrhosis of liver mary - GI Bleed/ Gastrointestinal hemorrhage, unspecified mary - Anemia, unspecified mary - Hypomagnesemia mary Forms: - Medication Reconciliation Form mary - SBAR form mary Signatures: Dispatcher [employer] EDMS Yasir Marie MD MD cha Botello, Elizabeth eb Garcia, Victoria RN RN vg1 Santana Whaley RN RN ke1 Alexandra Villanueva RN RN kr3 Corrections: (The following items were deleted from the chart) 15:24 14:47 FRESH FROZEN PLASMA+[id number] ordered. EDMS EDMS 15:24 14:49 ABO/RH typing ordered. EDMS EDMS 17:34 15:12 to [facility] [place] mary eb 17:34 15:12 [facility] mary eb 20:27 17:34 Dr. Gerardo [facility] eb ke1
[2022-03-08 21:33] VITALS: BP 124/70; TEMP 97.8; O2SAT 98
--- NOTE | 2022-03-09 19:12 | EKG ---
Test Date: 2022-03-08 Test Time: 13:14:06 Crimping Machine Operator For Metal: JOSÉ MEASUREMENT RESULTS: Intervals: Rate: 76 AL: 174 QRSD: 94 QT: 404 QTc: 454 [place]: P: 62 AL: 174 QRS: -22 T: -27 INTERPRETIVE STATEMENTS: Undetermined rhythm Minimal voltage criteria for LVH, may be normal variant Septal infarct, age undetermined Abnormal ECG Compared to ECG 01/24/2022 14:46:43 Myocardial infarct finding now present Sinus rhythm no longer present Electronically Signed On 03-09-22 19:10:28 CORD MAKER by Edwardo Adams
== END 2022-03-08 20:27 ==
LOC: ER 10:47
PROC: 30233K1 Transfusion of Nonautologous Frozen Plasma into Peripheral Vein, Percutaneous Approach (ICD-10-PCS; principal; 2022-03-08)
PROC: 30233N1 Transfusion of Nonautologous Red Blood Cells into Peripheral Vein, Percutaneous Approach (ICD-10-PCS; 2022-03-08)
DX: D64.9 Anemia, unspecified (principal); E83.42 Hypomagnesemia; K74.69 Other cirrhosis of liver; E11.9 Type 2 diabetes mellitus without complications; I10 Essential (primary) hypertension; Z20.822 Contact with and (suspected) exposure to COVID-19
CPT/HCPCS: 93005; 85025; 80048; 36415; 82140; 86900; 83735; 86850; 85610; 86901; 80076; 84484; 83690; 83880; 74176; 71045; 96372; 99285; 87811; 36430; J3430; J2354; C9113 ×2; J3475; P9016; P9059; J7050 ×2; J7030

== ENCOUNTER 2022-04-24 14:28 | Emergency (ER) | payer OTHER, MEDICARE ==
--- OUTSIDE RECORDS SUMMARY | 2022-04-24 14:34 | XMS REPORT | Continuity of Care Document ---
:1945 Author Organization [facility] t Address [address] [place] [address] Care Team Providers Name Role Phone GEORGI [...] rs active active ity of problems problems [facility] Allergies, Adverse Reactions, Alerts Allergy Allergy Status Severity Reaction(s) Onset Inactive Treating Comm ents Source Name Type Date Date Clinician NO KNOWN Drug Active Univers ALLERGIE Class ity of S [facility] Social History Social Habit Start Date Stop Date Quantity Comments Source Exposure to 2021-12-01 2021-12-11 Not sure University SARS-CoV-2 00:00:00 13:24:00 [facility] [place] (event) [place] Alcohol intake 2016-01-15 2016-01-15 Current [facility] 00:00:00 00:00:00 non-drinker of alcohol (finding) Tobacco use and 2016-01-11 2016-01-11 Smokeless tobacco [facility] exposure 00:00:00 00:00:00 non-user Tobacco Comment 2016-01-11 2016-01-11 quit cigars about [facility] 00:00:00 00:00:00 4 years ago History of 1996-01-11 Cigarette Smoker [facility] tobacco use 00:00:00 Sex Ass[birth year] [facility] 00:00:00 00:00:00 Smoking Status Start Date Stop Date Source Tobacco smoking [facility] consumption unknown Medical Bran ch Ex-smoker 2016-01-11 00:00:00 2016-01-11 [facility] 00:[facility]:00 Medications Ordered Filled Start Stop Current Ordering Indication Dosage Frequency Signature Comments Components Source Medication Medication Date Date Medication? Clinician (SIG) Name Name iopamidol 2021- No [id number] 110mL 110 mL, Univers (ISOVUE 12-11 Intravenou ity o f 370-500 mL) 20:45: 20:45 s, ONCE, 1 [place] injection 00 :00 dose, On Medica l 110 mL Tue Branch 12/11/21 at 1545, Routine metFORMIN Yes 1000mg Q.[id number] Take 1,000 [facility] (GLUCOPHAGE 01-10 [id number] mg by s t ) 1000 MG 14:58: 3D mouth 3 Hospi ta tablet 37 (three) l times a day. pravastatin Yes 40mg QD Take 40 mg [facility] (PRAVACHOL) 01-[address] 40 MG 14:58: daily. Hospita tablet 37 l gabapentin Yes 400mg Q.46157908 Take 400 [facility] (NEURONTIN) 01-10 [id number] mg by s t 400 MG 14:58: 3D mouth 3 Hospita capsule 37 (three) l times a day. pravastatin Yes 40mg QD Take 40 mg Methodi [...] Take 5 mg M ethodi (PROSCAR) 5 -[address] mg tablet 14:58: daily. Hospit a 37 l hydrochloro 2016-0 Yes 25mg QD Take 25 mg [facility] thiazide -[address] (HYDRODIURI 14:58: daily. Hosp briana L) 25 MG 37 l tablet propranolol 0 Yes 40mg Take 40 mg [facility] (INDERAL) -[address] 40 MG 14:58: daily. Hospita tablet 37 l cyanocobala 2015-0 Yes 100ug QD Take 100 M ethodi min 100 MCG 9-[address] tablet 14:58: mouth Hospita 37 daily. l sertraline 0 Yes 100mg QD Take 100 Me thodi (ZOLOFT) 9-[address] 100 MG 14:58: mouth Hospita tablet 37 daily. l insulin 2015-0 Yes 25U QD 25 Units Method i detemir 9-[address] (LEVEMIR) 14:58: Hospita 100 unit/mL 37 l injection esomeprazol 2015-0 Yes 40mg QD Take 40 mg Methodi e (NexIUM) -[address] 40 MG 14:58: daily Hospita capsule 37 before l breakfast. therapeutic 2016-0 Yes 1{tbl} QD Take 1 Me thodi multivitami 9-[address] n 14:58: mouth Hospita (THERAGRAN) 37 daily. l tablet dorzolamide 2016-0 Yes 1[drp] Q.5D Administer Methodi -timolol 01-[address] (COSOPT) 14:58: both eyes Hosp briana 22.3-6.8 37 2 (two) l mg/mL times a ophthalmic day. solution AMOXICILLIN 2016-0 Yes Q.5D Take by Met hodi ORAL 9-[address] 14:58: (two) Hospita 37 times a l day. tamsulosin 0 Yes .4mg QD Take 0.4 Met hodi (FLOMAX) 9-[address] 0.4 mg 14:58: mouth Hospita capsule,ext 37 daily. l ended release 24hr potassium 2015-0 Yes 10meq Q.5D Take 10 Meth danis chloride 9-[address] (K-DUR,KLOR 14:58: mouth 2 Hos boby -CON) 10 37 (two) l MEQ CR times a tablet day. losartan Yes 25mg QD Take 25 mg Met hodi (COZAAR) 50 -[address] MG tablet 14:58: daily. Hospit a 37 l finasteride 0 Yes 5mg QD Take 5 mg M ethodi (PROSCAR) [address] mg tablet 14:58: daily. Hospit a 37 l hydrochloro 0 Yes 25mg QD Take 25 mg [facility] thiazide -[address] (HYDRODIURI 14:58: daily. Hosp briana L) 25 MG 37 l tablet propranolol 0 Yes 40mg Take 40 mg [facility] (INDERAL) - by mouth st 40 MG 14:58: daily. Hospita tablet 37 l cyanocobala 0 Yes 100ug QD Take 100 M ethodi min 100 MCG - mcg by st tablet 14:58: mouth Hospita 37 daily. l insulin 0 Yes 25U QD 25 Units Method i detemir -[address] (LEVEMIR) 14:58: Hospita 100 unit/mL 37 l injection esomeprazol 2015-0 Yes 40mg QD Take 40 mg Methodi e (NexIUM) -[address] 40 MG 14:58: daily Hospita capsule 37 before l breakfast. therapeutic 2015-0 Yes 1{tbl} QD Take 1 Me thodi multivitami - tablet by st n 14:58: mouth Hospita (THERAGRAN) 37 daily. l tablet dorzolamide 2016-0 Yes 1[drp] Q.5D Administer Method[facility] -timolol 01-[address] (COSOPT) 14:58: both eyes Hosp briana 22.3-6.8 37 2 (two) l mg/mL times a ophthalmic day. solution AMOXICILLIN 2016-0 Yes Q.5D Take by Met hodi ORAL 9-[address] 14:58: (two) Hospita 37 times a l day. metFORMIN 2016-0 Yes 1000mg Q.[id number] Take 1,000 [facility] (GLUCOPHAGE - [id number] mg by s t ) 1000 MG 14:58: 3D mouth 3 Hospi ta tablet 37 (three) l times a day. gabapentin 2016-0 Yes 400mg Q.56409045 Take 400 [facility] (NEURONTIN) 01-10 [id number] mg by s t 400 MG 14:58: 3D mouth 3 Hospita capsule 37 (three) l times a day. pravastatin 2016-0 Yes 40mg QD Take 40 mg [facility] (PRAVACHOL) -[address] 40 MG 14:58: daily. Hospita tablet 37 l sertraline 2015-0 Yes 100mg QD Take 100 Me thodi (ZOLOFT) 9-[address] 100 MG 14:58: mouth Hospita tablet 37 daily. l tamsulosin 2015-0 Yes .4mg QD Take 0.4 Met hodi [...] 25mg QD Take 25 mg Method[facility] thiazide 9-[address] (HYDRODIURI 14:58: daily. Hosp briana L) 25 MG 37 l tablet propranolol Yes 40mg Take 40 mg [facility] (INDERAL) 01-[address] 40 MG 14:58: daily. Hospita tablet 37 l cyanocobala Yes 100ug QD Take 100 M ethodi min 100 MCG 01-[address] tablet 14:58: mouth Hospita 37 daily. l insulin Yes 25U QD 25 Units Method i detemir [address] (LEVEMIR) 14:58: Hospita 100 unit/mL 37 l injection esomeprazol Yes 40mg QD Take 40 mg Methodi e (NexIUM) 01-[address] 40 MG 14:58: daily Hospita capsule 37 before l breakfast. therapeutic Yes 1{tbl} QD Take 1 Me thodi multivitami 01-[address] n 14:58: mouth Hospita [...] times a l day. metFORMIN Yes 1000mg Q.[id number] Take 1,000 [facility] (GLUCOPHAGE 01-10 [id number] mg by s t ) 1000 MG 14:58: 3D mouth 3 Hospi ta tablet 37 (three) l times a day. gabapentin Yes 400mg Q.40485777 Take 400 [facility] (NEURONTIN) 01-10 [id number] mg by s t 400 MG 14:58: 3D mouth 3 Hospita capsule 37 (three) l times a day. latanoprost Yes 1[drp] QD Administer [facility] (XALATAN) 7-[address] 0.005 % 00:00: both eyes Hospi ta ophthalmic 00 nightly. l solution latanoprost Yes 1[drp] QD Administer [facility] (XALATAN) 7-[address] 0.005 % 00:00: both eyes Hospi ta ophthalmic 00 nightly. l solution latanoprost 2016-0 Yes 1[drp] QD Administer [facility] (XALATAN) 7-[address] 0.005 % 00:00: both eyes Hospi ta ophthalmic 00 nightly. l solution No known No [facility] medications [facility] No known No Univers medications [facility] Vital Signs Vital Name Observation Time Observation Value Comments Source Systolic blood 2021-12-11 19:56:00 147 mm[Hg] Univer sity of [place] Diastolic blood 2021-12-11 19:56:00 88 mm[facility]Hg[facility] 2021-12-11 19:56:00 78 /min [facility] Respiratory rate 2021-12-11 19:56:00 13 /min [facility] Oxygen saturation in 2021-12-11 19:56:00 96 /min University of Arterial blood by [facility] Pulse oximetry Branch Body temperature 2021-12-11 17:37:[address] [facility] Body height 2021-12-11 17:37:00 180.3 cm [facility] Body weight 2021-12-11 17:37:00 91.627 kg [facility] BMI 2021-12-11 17:37:00 28.17 kg/m2 [facility] Systolic blood 2019-10-18 19:49:00 149 mm[Hg] Univer sity [facility] [place] [facility] Diastolic blood 2019-10-18 19:49:00 87 mm[Hg] Unive rsity [facility] Heart rate 2019-10-18 19:49:00 81 /min [facility] Body temperature 2019-10-18 19:49:[address] [facility] Respiratory rate 2019-10-18 19:49:00 16 /min Univ [facility] Oxygen saturation in 2019-10-18 19:49:00 97 /min University of Arterial blood by [facility] Pulse oximetry Branch Procedures Procedure Date / Time Performing Clinician Source Performed ABORH CONFIRMATION (LAB 2021-12-11 19:45:00 Alex Poole [facility] ONLY) Medical Branch CT ANGIOGRAM 2021-12-11 19:36:[address] [facility] ABDOMEN/PELVIS Medical Branch XR CHEST 1 VW 2021-12-11 18:35:31 Alex Poole [facility] LACTIC ACID WHOLE BLOOD 2021-12-11 18:21:00 Alex Poole [facility] HB ABO GROUPING 2021-12-11 18:20:00 Alex Poole [facility] LIPASE 2021-12-11 18:19:00 [facility] Alex [facility] TROPONIN I 2021-12-11 18:19:00 [facility] Alex [facility] COMP. METABOLIC PANEL 2021-12-11 18:19:00 Alex Poole [facility] ([id number]) Medical Branch CBC WITH DIFF 2021-12-11 18:19:00 Alex Poole [facility] PROTHROMBIN TIME / INR 2021-12-11 18:19:00 Alex Poole [facility] ACTIVATED PARTIAL 2021-12-11 18:19:00 [facility] THRMPLAS VIKKI [facility] URINALYSIS 2021-12-11 18:19:00 [facility] N-TERMINAL PRO-BNP 2021-12-11 18:19:00 Alex Poole [facility] NOTICE OF PRIVACY 2021-12-11 17:30:58 Doctor Unassigned, No [facility] PRACTICES Name Medical [place] Plan of Care Planned Activity Planned Date Details Comments Source Future Scheduled 2022-04-04 COVID-19 VACCINE (#1) [facility] Hospital Test 01:26:36 [code = COVID-19 VACCINE (#1)] Future Scheduled 2022-04-04 COLONOSCOPY SCREENING [facility] Test 01:26:36 [code = COLONOSCOPY SCREENING] Future Scheduled 2022-04-04 SHINGLES VACCINES (1 Met [facility] Test 01:26:36 of 2) [code = SHINGLES VACCINES (1 of 2)] Future Scheduled 2022-04-04 65+ PNEUMOCOCCAL [facility] Hospital Test 01:26:36 VACCINE (1 - PCV) [code = 65+ PNEUMOCOCCAL VACCINE (1 - PCV)] Future Scheduled 2022-04-04 INFLUENZA VACCINE Method is Hospital Test 01:26:36 [code = INFLUENZA VACCINE] Future Scheduled 2022-02-21 HEPATITIS B VACCINES Met [facility] Test 05:20:07 (1 of 3 - 3-dose series) [code = HEPATITIS B VACCINES (1 of 3 - 3-dose series)] Future Scheduled 2022-02-21 COVID-19 VACCINE (#1) [facility] Hospital Test 05:20:07 [code = COVID-19 VACCINE (#1)] Future Scheduled 2022-02-21 COLONOSCOPY SCREENING [facility] Test 05:20:07 [code = COLONOSCOPY SCREENING] Future Scheduled 2022-02-21 SHINGLES VACCINES (1 Met [facility] Test 05:20:07 of 2) [code = SHINGLES VACCINES (1 of 2)] Future Scheduled 2022-02-21 65+ [facility] VACCINE (1 - PCV) [code = 65+ PNEUMOCOCCAL VACCINE (1 - PCV)] Future Scheduled 2022-02-21 INFLUENZA VACCINE Method [facility] Hospital Test 05:20:07 [code = INFLUENZA VACCINE] Future Scheduled 2021-12-19 HEPATITIS B VACCINES Met [facility] Test 20:37:05 (1 of 3 - 3-dose series) [code = HEPATITIS B VACCINES (1 of 3 - 3-dose series)] Future Scheduled 2021-12-19 COVID-19 VACCINE (#1) [facility] Hospital Test 20:37:05 [code = COVID-19 VACCINE (#1)] Future Scheduled 2021-12-19 COLONOSCOPY SCREENING [facility] Test 20:37:05 [code = COLONOSCOPY SCREENING] Future Scheduled 2021-12-19 SHINGLES VACCINES (1 Met [facility] Hospital Test 20:37:05 of 2) [code = SHINGLES VACCINES (1 of 2)] Future Scheduled 2021-12-19 65+ PNEUMOCOCCAL Methodi [facility] Test 20:37:05 VACCINE (1 - PCV) [code = 65+ PNEUMOCOCCAL VACCINE (1 - PCV)] Future Scheduled 2021-12-19 INFLUENZA VACCINE Method [facility] Hospital Test 20:37:05 [code = INFLUENZA VACCINE] Encounters Start End Encounter Admission Attending Care Care Encounter Source Date/Time Date/Time Type Type Clinicians Facility Department ID 2021-12-11 2021-12-11 Emergency [facility] [id number] Univers 12:44:00 15:46:00 Alex AMOR [id number] i [place] [id number] [address] 2021-12-11 2021-12-11 Emergency X [facility] ERT [id number] Univers 12:44:00 15:46:00 ALEX karin [facility] 2019-10-18 2019-10-30 Urgent Pob1, Acute Care Clinic [facility] [id number]. [id number] Univers 14:46:42 16:21:[address] [facility] [id number] ity of [place] 4.2.7.2.686 [place]ando as Professio [id number] [address] Office [facility] 2019-10-20 2019-10-20 Telephone Angie [facility] [id number] Univers 00:00:00 00:00:00 Formerly [facility], 1928–1983 [id number] it y of [place] 4.2.7.2.686 [place] as Professio [id number] [address] 2019-10-18 2019-10-18 Laboratory Lab, Adc Fam Pob I [facility] 1.2. [id number] [id number] Univers 14:38:53 14:58:53 Only Edilma Flor [place] [id number] ity of [place] 4.2.7.2.686 [place] as Professio [id number] Ma dicmt nal [address] [place] [address] Office [facility] 2019-10-18 2019-10-18 Outpatient R CHACHO [facility] [id number] Univers 14:40:00 14:40:00 EDILMA karin [facility] 2019-10-18 2019-10-18 Outpatient R [facility] [id number] Univers 14:40:00 14:40:[address] [facility] Results Test Description Test Time Test Comments Results Result Comments Source ABORH Confirmation (Lab Only) 2021-12-11 20:16:20 Test Item Value Reference Range Interpretation Comme nts ABO & RH (test code = 20) B Positive Pe rformed at [facility] Laboratory Services - [facility] Blood Xmsl039 [address]Toll Free: [phone] A No. [id number] [facility] - ONCE [id number] 19:30:27 Test Item Value Reference Range Interpretation Comments ABO & RH (test code B Positive Performe d at [facility] = 20) Laboratory Serv [facility] Blood Bank1 [address] [place], [place] [address]Toll Free: [phone] A No. [id number] IAT (test code = Negative Performed a t [facility] 1185) Laboratory Serv [facility] Blood Bank1 [address] [place], [place] [address]Toll Free: [phone] A No. [id number] [facility] [id number] 19:05:15 Test Item Value Reference Interpretation Comments Range TROPONIN I (test 0.004 ng/mL See_Comment [Automated code = 3774223403) message] The system which generated this result [...] biotin. Lab Interpretation Normal (test code = 03307-0) [facility] [id number] 19:01:53 Test Item Value Reference Range Interpretation Comments NT-proBNP (test code 140 pg/mL See_Comment [Autom ated = 4154840064) message] The system which generated this result transmitted reference range : <=450. The reference range was not used to interpret this result as normal/abnormal . MYKEL (test code = MYKEL) Biotin has been reported to cause a negative bias, interpret results relative to patient's use of biotin. Lab Interpretation Normal (test code = 11109-0) [facility]. METABOLIC PANEL (16645)2021-12-11 18:54:15 Test Item Value Reference Range Interpretation Comments NA (test code = 138 mmol/L 135-145 1471752690) K (test code = 4.0 mmol/L 3.5-5 0887962171) CL (test code = 103 mmol/L 98-108 6205858790) CO2 TOTAL (test code = 31 mmol/L 23-31 5703091835) AGAP (test code = 2-16 6369585195) BUN (test code = 19 mg/dL 7-23 1145488918) GLUCOSE (test code = 141 mg/dL 70-110 H 4066894401) CREATININE (test code = 0.53 mg/dL 0.6-1.25 L 4171689851) TOTAL BILI (test code = 1.7 mg/dL 0.1-1.1 H 8976092430) CALCIUM (test code = 9.0 mg/dL 8.6-10.6 7707781056) T PROTEIN (test code = 5.5 g/dL 6.3-8.2 L 6531510509) ALBUMIN (test code = 3.7 g/dL 3.5-5 3983043865) ALK PHOS (test code = 91 U/L 34-122 8638806803) ALTv (test code = 26 U/L 5-50 1742-6) AST(SGOT) (test code = 29 U/L 13-40 3504580374) eGFR (test code = mL/min/1.73m2 1119860301) MYKEL (test code = MYKEL) Association of [...] tests). Lab Interpretation Abnormal (test code = 85522-8) [facility] 18:54:15 Test Item Value Reference Range Interpretation Comments LIPASE (test code = 5660909342) 115 U/L 0-220 Lab Interpretation (test code = Normal 15035-8) [facility] CenterACT[facility] THRMPLAS [id number] 18:50:55 Test Item Value Reference Range Interpretation Comments APTT Patient (test See_Comment [Automat ed code = 3173-2) message] The system which generated this result transmitted reference range : 23 - 38 Seconds . The reference range was not used to interpr et this result as normal/abnormal . MYKEL (test code = MYKEL) The [facility] patient population mean normal value for aPTT is 30 seconds. Lab Interpretation Normal (test code = 01954-4) [facility] CenterPROTHR[facility] / [id number] 18:48:51 Test Item Value Reference Range Interpretation [...] tions. Lab Interpretation (test Normal code = 67372-6) [facility] WITH [id number] 18:41:33 Test Item Value Reference Range Interpretation [...] (test code = 78.1 fL 38.5-51.6 H 37598-9) RDW-CV (test code = 26.1 % 12.1-15.4 H 788-0) PLT (test code = See_Comment L [Automated 777-3) message] The sy stem which generated this result transmitted reference range : 150 - 328 10*3/ ?L. The reference r karolina was not used to interpret this result as normal/abnormal . MPV (test code = 10.1 fL 9.8-13 80080-3) NRBC/100 WBC (test See_Comment [Automat ed code = 8657358959) message] The system which generated this result transmitted reference range : 0.0 - 10.0 /100 WBCs. The refer ence range was not u sed to interpret th is result as normal/abnormal . NRBC x10^3 (test code See_Comment [Auto mated = 2985876222) message] The s ystem which generated this result transmitted reference range : 10*3/?L. The reference range was not used to interpret this result as normal/abnormal . GRAN MAT (NEUT) % 74.1 % (test code = 770-8) IMM GRAN % (test code 0.50 % = 3362709264) LYMPH % (test code = 13.8 % 736-9) MONO % (test code = 7.7 % 5905-5) EOS % (test code = 3.4 % 713-8) BASO % (test code = 0.5 % 706-2) GRAN MAT x10^3(ANC) 3.07 10*3/uL 1.99-6.95 (test code = 6091948143) IMM GRAN x10^3 (test 0-0.06 code = 5772961562) LYMPH x10^3 (test code 0.57 10*3/uL 1.09-3.23 L = 731-0) MONO x10^3 (test code 0.32 10*3/uL 0.36-1.02 L = 742-7) EOS x10^3 (test code = 0.14 10*3/uL 0.06-0.53 711-2) BASO x10^3 (test code 0.01-0.09 = 704-7) Lab Interpretation Abnormal (test code = 86882-8) [facility]"
[2022-04-24 15:44] LABS: Absolute Lymphocytes (CBC) 0.6 K/uL (0.7-4.9); Hematocrit 18.3 % (39.6-49.0); Lymphocytes % 9.7 % (15.3-44.8); MPV 7.8 fL (7.6-11.3); RBC Red Blood Cell Count 2.18 M/uL (4.33-5.43)
[2022-04-24 15:52] LABS: Protime INR 1.38
[2022-04-24 15:56] LABS: SARS-CoV-2 Antigen Rapid Res Negative (Negative)
[2022-04-24 16:00] LABS: Albumin 2.5 g/dL (3.4-5.0); Bilirubin Total 1.4 mg/dL (0.2-1.0); Potassium 4.1 mmol/L (3.5-5.1); Protein, Total 5.6 g/dL (6.4-8.2)
[2022-04-24 18:39] LABS: Anisocytosis 2+; Blood Morphology Comment NOTED (NOT SEEN); Platelet Estimate ADEQ; Poikilocytosis 1+; Polychromasia 1+; White Blood Cell Scan OK (OK)
--- NOTE | 2022-04-24 21:59 | ER ---
Nurse's Notes [facility] Name: Abdoulaye Mcdonald Age: 76 yrs Sex: Male : 1945 Arrival Date: 04/24/2022 Time: 14:32 Bed 24 Private MD: Diagnosis: Anemia, unspecified;Other ascites Presentation: 04/24 14:55 Chief complaint: Patient states: [facility], but was told to come to the ER for low hemoglobin for possible need for blood transfusion and scope. Coronavirus screen: At this time, the client does not indicate any symptoms associated with coronavirus-19. Ebola Screen: No symptoms or risks identified at this time. Initial Sepsis Screen: Does the patient meet any 2 criteria? No. Patient's initial sepsis screen is negative. Does the patient have a suspected source of infection? No. Patient's initial sepsis screen is negative. Risk Assessment: Do you want to hurt yourself or someone else? Patient reports no desire to harm self or others. Onset of symptoms. 14:55 Method Of Arrival: Wheelchair ap3 14:55 Acuity: BRANDON 3 ap3 Triage Assessment: 14:58 General: Appears uncomfortable, Behavior is calm, Reports fatigue for. Pain: Denies ap3 pain. Neuro: Level of Consciousness is awake, alert, Oriented to person, place, Weakness Reports weakness. Cardiovascular: Patient's skin is warm and dry. Respiratory: Airway is patent Respiratory effort is even, unlabored, Respiratory pattern is regular, symmetrical. Derm: Skin is pale. Historical: - Allergies: 14:57 No Known Allergies; ap3 - Home Meds: 22:18 acarbose 25 mg Oral tab 1 tab daily [Active]; citalopram 40 mg tab 1 tab once daily eh3 [Active]; gabapentin 100 mg Oral cap [Active]; gemfibrozil 600 mg Oral tab 1 tab 2 times per day [Active]; hydrochlorothiazide 25 mg Oral tab 1 tab 2 times per day [Active]; Insulin Glargine Sub-Q [Active]; losartan 50 mg Oral tab 1 tab once daily [Active]; metformin 1,000 mg Oral tab 1 tab 2 times per day for Type 2 Diabetes Mellitus [Active]; - PMHx: 14:57 cirrhosis of liver; diabetes mellitus; Hypertensive disorder; ap3 - PSHx: 22:18 back; Cholecystectomy; eh3 - Immunization history:: Client reports receiving the 2nd dose of the Covid vaccine, Flu vaccine is not up to date. - Social history:: Smoking status: Patient denies any tobacco usage or history of. Screenin:59 [facility] ED Fall Risk Assessment (Adult). Abuse screen: Denies threats or abuse. ap3 Nutritional screening: No deficits noted. Tuberculosis screening: No symptoms or risk factors identified. Assessment: 15:30 General: Appears in no apparent distress. comfortable, Behavior is calm, cooperative, eh3 appropriate for age. Pain: Denies pain. Neuro: Level of Consciousness is awake, alert, obeys commands, Oriented to person, place, time, situation. Cardiovascular: Capillary refill < 3 seconds Patient's skin is warm and dry. Respiratory: Airway is patent Respiratory effort is even, unlabored, Respiratory pattern is regular, symmetrical. GI: No signs and/or symptoms were reported involving the gastrointestinal system. Abdomen is round non-distended. : No signs and/or symptoms were reported regarding the genitourinary system. EENT: No signs and/or symptoms were reported regarding the EENT system. Derm: Skin is pale. Musculoskeletal: Circulation, motion, and sensation intact. 16:30 Reassessment: Patient appears in no apparent distress at this time. Patient and/or eh3 family updated on plan of care and expected duration. Pain level reassessed. Patient is alert, oriented x 3, equal unlabored respirations, skin warm/dry/pink. 17:30 Reassessment: Patient appears in no apparent distress at this time. Patient and/or eh3 family updated on plan of care and expected duration. Pain level reassessed. Patient is alert, oriented x 3, equal unlabored respirations, skin warm/dry/pink. 18:30 Reassessment: Patient appears in no apparent distress at this time. Patient and/or eh3 family updated on plan of care and expected duration. Pain level reassessed. Patient is alert, oriented x 3, equal unlabored respirations, skin warm/dry/pink. 19:30 Reassessment: Patient appears in no apparent distress at this time. Patient and/or eh3 family updated on plan of care and expected duration. Pain level reassessed. Patient is alert, oriented x 3, equal unlabored respirations, skin warm/dry/pink. 20:30 Reassessment: Patient appears in no apparent distress at this time. Patient and/or eh3 family updated on plan of care and expected duration. Pain level reassessed. Patient is alert, oriented x 3, equal unlabored respirations, skin warm/dry/pink. 21:30 Reassessment: Patient appears in no apparent distress at this time. Patient and/or eh3 family updated on plan of care and expected duration. Pain level reassessed. Patient is alert, oriented x 3, equal unlabored respirations, skin warm/dry/pink. 22:14 Reassessment: Pt to be discharged after completion of blood transfusion, 311 mL eh3 remaining to transfuse. 22:30 Reassessment: Patient appears in no apparent distress at this time. Patient and/or eh3 family updated on plan of care and expected duration. Pain level reassessed. Patient is alert, oriented x 3, equal unlabored respirations, skin warm/dry/pink. 22:30 Reassessment: Transfusion completed at 2245. eh3 Vital Signs: 14:55 BP 107 / 56; Pulse 95; Resp 17; Temp 98.8; Pulse Ox 97% ; Weight 90.72 kg; Height 5 ft. ap3 11 in. (180.34 cm); 16:30 BP 114 / 66; Pulse 89; Resp 18; Temp 98.0(O); Pulse Ox 95% ; eh3 17:30 BP 111 / 71; Pulse 88; Resp 18; Pulse Ox 98% on R/A; eh3 18:30 BP 108 / 65; Pulse 92; Resp 18; Pulse Ox 96% on R/A; eh3 19:30 BP 111 / 71; Pulse 88; Resp 16; Pulse Ox 99% on R/A; eh3 20:30 BP 109 / 62; Pulse 89; Resp 16; Pulse Ox 100% on R/A; eh3 21:30 BP 111 / 66; Pulse 88; Resp 17; Pulse Ox 98% on R/A; eh3 22:30 BP 129 / 80; Pulse 90; Resp 16; Pulse Ox 98% on R/A; eh3 14:55 Body Mass Index 27.89 (90.72 kg, 180.34 cm) ap3 ED Course: 14:32 Patient arrived in ED. rg4 14:57 Triage completed. ap3 14:59 Arm band placed on left wrist. ap3 15:17 [facility]C [facility] kb 15:17 Yasir Marie MD is Attending Physician. kb 15:30 Patient has correct armband on for positive identification. Bed in low position. Call 3 light in reach. Side rails up X2. Adult w/ patient. Pulse ox on. NIBP on. Door closed. Noise minimized. Lights dimmed. Warm blanket given. 15:30 Inserted saline lock: 18 gauge in right antecubital area, using aseptic technique. zm Blood collected. 15:30 SARS RAPID Sent. zm 15:30 Type And Screen Sent. zm 15:30 Protime (+inr) Sent. zm 15:30 Ptt, Activated Sent. zm 15:30 CBC with Diff Sent. zm 15:30 CMP Sent. zm 15:30 Lipase Sent. zm 16:25 Erin Bautista, RN is Primary Nurse. eh3 16:30 Consent for blood and/or blood product transfusion explained by staff, signed by [facility] patient. 16:56 initiated transfer to [facility], faxed chart to transfer center as requested. bd 18:26 pt denied at [facility] due to no beds at this time,per [facility]. bd 22:18 No provider procedures requiring assistance completed. eh3 22:53 IV discontinued, intact, bleeding controlled, No redness/swelling at site. Pressure eh3 dressing applied. Administered Medications: No medications were administered Medication: 22:18 VIS not applicable for this client. eh3 Outcome: 21:58 Discharge ordered by . kb 22:53 Discharged to home ambulatory, with family. eh3 22:53 Condition: stable 22:53 Discharge instructions given to patient, family, Instructed on discharge instructions, follow up and referral plans. Demonstrated understanding of instructions, follow-up care. 22:54 Patient left the ED. eh3 Signatures: Bernie Hsu FNP-C FNP-Deb Garcia Rubi 4 Karina Bland RN RN 3 Erin Bautista, JANETT RN 3 Bertha Callahan
--- NOTE | 2022-04-24 21:59 | EDPHYS ---
Physician Documentation [facility] Name: Abdoulaye Mcdonald Age: 76 yrs Sex: Male : 1945 Arrival Date: 04/24/2022 Time: 14:32 Bed 24 Private MD: REBECCA Physician Yasir Marie HPI: 04/24 16:37 This 76 yrs old Male presents to ER via Wheelchair with complaints of Needs Transfusion.kb 16:37 Pt reports he went to the cancer center for an iron transfusion and was told his kb hemoglobin was 6.1 so he needed to come to the ER for a blood transfusion. States they also told him he needed to get scopes. Pt also reports swelling of lower extremities and abdomen. States he needs fluid drained. Reports he has cirrhosis and needs paracentesis at times. . Onset: The symptoms/episode began/occurred 3 day(s) ago. Severity of symptoms: At their worst the symptoms were moderate in the emergency department the symptoms are unchanged. The patient has experienced similar episodes in the past. The patient has been recently seen by a physician:. Historical: - Allergies: 14:57 No Known Allergies; ap3 - Home Meds: 22:18 acarbose 25 mg Oral tab 1 tab daily [Active]; citalopram 40 mg tab 1 tab once daily eh3 [Active]; gabapentin 100 mg Oral cap [Active]; gemfibrozil 600 mg Oral tab 1 tab 2 times per day [Active]; hydrochlorothiazide 25 mg Oral tab 1 tab 2 times per day [Active]; Insulin Glargine Sub-Q [Active]; losartan 50 mg Oral tab 1 tab once daily [Active]; metformin 1,000 mg Oral tab 1 tab 2 times per day for Type 2 Diabetes Mellitus [Active]; - PMHx: 14:57 cirrhosis of liver; diabetes mellitus; Hypertensive disorder; ap3 - PSHx: 22:18 back; Cholecystectomy; eh3 - Immunization history:: Client reports receiving the 2nd dose of the Covid vaccine, Flu vaccine is not up to date. - Social history:: Smoking status: Patient denies any tobacco usage or history of. ROS: 16:34 Constitutional: Negative for fever, chills, and weight loss. kb 16:34 Cardiovascular: Positive for edema. 16:34 Abdomen/GI: Positive for abdominal pain, black/tarry stool, Negative for nausea, vomiting, and diarrhea. 16:34 Neuro: Positive for weakness. 16:34 All other systems are negative. Exam: 16:35 Constitutional: This is a well developed, well nourished patient who is awake, alert, kb and in no acute distress. Head/Face: Normocephalic, atraumatic. ENT: Moist Mucous membranes Cardiovascular: Regular rate and rhythm with a normal S1 and S2. No gallops, murmurs, or rubs. No pulse deficits. Respiratory: Respirations even and unlabored. No increased work of breathing. Talking in full sentences MS/ Extremity: Pulses equal, no cyanosis. Neurovascular intact. Full, normal range of motion. Neuro: Awake and alert, GCS 15, oriented to person, place, time, and situation. Moves all extremities. Normal gait. Psych: Awake, alert, with orientation to person, place and time. Behavior, mood, and affect are within normal limits. 16:35 Abdomen/GI: Inspection: distension, that is moderate, in the abdomen diffusely, Bowel sounds: normal, Palpation: soft, in all quadrants, mild abdominal tenderness, in all quadrants. 16:35 Skin: Appearance: Color: pale. Vital Signs: 14:55 BP 107 / 56; Pulse 95; Resp 17; Temp 98.8; Pulse Ox 97% ; Weight 90.72 kg; Height 5 ft. ap3 11 in. (180.34 cm); 16:30 BP 114 / 66; Pulse 89; Resp 18; Temp 98.0(O); Pulse Ox 95% ; eh3 17:30 BP 111 / 71; Pulse 88; Resp 18; Pulse Ox 98% on R/A; eh3 18:30 BP 108 / 65; Pulse 92; Resp 18; Pulse Ox 96% on R/A; eh3 19:30 BP 111 / 71; Pulse 88; Resp 16; Pulse Ox 99% on R/A; eh3 20:30 BP 109 / 62; Pulse 89; Resp 16; Pulse Ox 100% on R/A; eh3 21:30 BP 111 / 66; Pulse 88; Resp 17; Pulse Ox 98% on R/A; eh3 22:30 BP 129 / 80; Pulse 90; Resp 16; Pulse Ox 98% on R/A; eh3 14:55 Body Mass Index 27.89 (90.72 kg, 180.34 cm) ap3 MDM: 15:17 Patient medically screened. kb 16:36 Data reviewed: vital signs, nurses notes. Data interpreted: Pulse oximetry: on room air kb is 97 %. Interpretation: normal. 18:54 ED course: [facility]. Discuss[facility] due to lack of GI here and pt wants to discuss this with his when she returns. States "Can't I just go home tonight and [facility]?" I informed pt that he has the right to make that decision, but I do recommend transfer to [facility] from here tonight. Pt will discuss with and let me know what they decide. . 19:00 ED course: Pt refused rectal exam. kb 19:50 ED course: Pt discussed plan for transfer with , they have decided they want to go home tonight and [facility]. States they will go there in the morning and will return for worsening symptoms or any other concerns. Will complete transfusion of 2 units PRBC prior to informed discharge. I again recommended transfer to [facility] and told them to let me know if they change their minds at any time. . 22:39 Differential Diagnosis Differential Diagnosis anemia, gi bleed, liver failure. kb 04/24 15:27 Order name: CBC with Diff; Complete Time: 18:46 kb 04/24 15:27 Order name: CMP; Complete Time: 16:01 kb 04/24 15:27 Order name: Lipase; Complete Time: 16:01 kb 04/24 15:27 Order name: Protime (+inr); Complete Time: 15:56 kb 04/24 15:27 Order name: Ptt, Activated; Complete Time: 15:56 kb 04/24 15:27 Order name: Type And Screen kb 04/24 15:27 Order name: IV Saline Lock; Complete Time: 15:30 kb 04/24 15:27 Order name: Labs collected and sent; Complete Time: 15:30 kb 04/24 15:27 Order name: SARS RAPID; Complete Time: 15:57 kb 04/24 16:03 Order name: Magnesium; Complete Time: 16:45 kb 04/24 16:04 Order name: Bb Add On bd 04/24 16:43 Order name: Packed RBCs (Additional Unit) EDMS 04/24 18:40 Order name: CBC Smear Scan; Complete Time: 18:46 EDMS Administered Medications: No medications were administered Disposition Summary: 04/24/22 21:58 Discharge Ordered Location: Home kb Condition: Stable kb Diagnosis - Anemia, unspecified kb - Other ascites kb Followup: kb - With: Emergency Department - When: As needed - Reason: Worsening of condition Followup: kb - With: Private Physician - When: 2 - 3 days - Reason: Recheck today's complaints, Continuance of care, Re-evaluation by your physician Discharge Instructions: - Discharge Summary Sheet kb - Anemia kb - Ascites kb Forms: - Medication Reconciliation Form kb - Thank You Letter kb - Antibiotic Education kb - Prescription Opioid Use kb Signatures: Dispatcher [employer] EDOK Bernie Hsu, [facility] WOMENS HEALTH NURSE PRACTITIONER-Ckb David Dick FNP-C WOMENS HEALTH NURSE PRACTITIONER-Cla1 Karina Bland, RN RN ap3 Erin Bautista RN RN eh3
[2022-04-24 23:19] VITALS: TEMP 98
[2022-04-24 23:33] VITALS: O2SAT 98
[2022-04-24 23:34] VITALS: BP 129/80
== END 2022-04-24 22:54 | disposition home or self-care (01) ==
LOC: ER 14:28
PROC: 30233N1 Transfusion of Nonautologous Red Blood Cells into Peripheral Vein, Percutaneous Approach (ICD-10-PCS; principal; 2022-04-24)
DX: D64.9 Anemia, unspecified (principal); R18.8 Other ascites; Z20.822 Contact with and (suspected) exposure to COVID-19; K74.60 Unspecified cirrhosis of liver; I10 Essential (primary) hypertension; E11.9 Type 2 diabetes mellitus without complications; Z79.4 Long term (current) use of insulin
CPT/HCPCS: 85025; 36415; 86900; 83735; 86850; 85610; 86901; 85730; 83690; 80053; 99284; 87811; 36430; P9016 ×2

== ENCOUNTER 2022-05-07 12:40 | Emergency (ER) | payer OTHER, MEDICARE ==
--- OUTSIDE RECORDS SUMMARY | 2022-05-07 12:43 | XMS REPORT | Continuity of Care Document ---
:1945 Author Organization [facility] t Address [address] [place] [address] Care Team Providers Name Role Phone GEORGI [...] rs active active ity of problems problems [facility] Allergies, Adverse Reactions, Alerts Allergy Allergy Status Severity Reaction(s) Onset Inactive Treating Comm ents Source Name Type Date Date Clinician NO KNOWN Drug Active Univers ALLERGIE Class ity of S [facility] Social History Social Habit Start Date Stop Date Quantity Comments Source Exposure to 2021-12-01 2021-12-11 Not sure University SARS-CoV-2 00:00:00 13:24:00 [facility] (event) [place] Alcohol intake 2016-01-15 2016-01-15 Current [facility] 00:00:00 00:00:00 non-drinker of alcohol (finding) Tobacco use and 2016-01-11 2016-01-11 Smokeless tobacco [facility] exposure 00:00:00 00:00:00 non-user Tobacco Comment 2016-01-11 2016-01-11 quit cigars about [facility] 00:00:00 00:00:00 4 years ago History of 1996-01-11 Cigarette Smoker [facility] tobacco use 00:00:00 Sex Ass[birth year] [facility] 00:00:00 00:00:00 Smoking Status Start Date Stop Date Source Tobacco smoking [facility] consumption unknown Medical Bran ch Ex-smoker 2016-01-11 00:00:00 2016-01-11 [facility] 00:00:00 Medications Ordered Filled Start Stop Current Ordering Indication Dosage Frequency Signature Comments Components Source Medication Medication Date Date Medication? Clinician (SIG) Name Name iopamidol 2021- No [id number] 110mL 110 mL, Univers (ISOVUE 12-11 Intravenou ity o f 370-500 mL) 20:45: 20:45 s, ONCE, 1 [place] injection 00 :00 dose, On Medica l 110 mL Tue Branch 12/11/21 at 1545, Routine gabapentin Yes 400mg Q.[id number] Take 400 [facility] (NEURONTIN) 01-10 [id number] mg by s t 400 MG 14:58: 3D mouth 3 Hospita capsule 37 (three) l times a day. pravastatin Yes 40mg QD Take 40 mg [facility] (PRAVACHOL) 01-[address] 40 MG 14:58: daily. Hospita tablet 37 l metFORMIN Yes 1000mg Q.[id number] Take 1,000 [facility] (GLUCOPHAGE 01-10 [id number] mg by s t ) 1000 MG 14:58: 3D mouth 3 Hospi ta tablet 37 (three) l times a day. gabapentin Yes 400mg Q.[id number] Take 400 [facility] (NEURONTIN) 01-10 [id number] mg by s t 400 MG 14:58: [...] Hospita (THERAGRAN) 37 daily. l tablet dorzolamide 2015-0 Yes 1[drp] Q.5D Administer [facility] -timolol - [address] (COSOPT) 14:58: both eyes Hosp briana 22.3-6.8 37 2 (two) l mg/mL times a ophthalmic day. solution AMOXICILLIN 2016-0 Yes Q.5D Take by Met hodi ORAL 9-[address] 14:58: (two) Hospita 37 times a l day. sertraline 0 Yes 100mg QD Take 100 [...] 1{tbl} QD Take 1 Me thodi multivitami -[address] n 14:58: mouth Hospita (THERAGRAN) 37 daily. l tablet dorzolamide 2015-0 Yes 1[drp] Q.5D Administer [facility] -timolol 01-[address] (COSOPT) 14:58: both eyes Hosp briana 22.3-6.8 37 2 (two) l mg/mL times a ophthalmic day. solution AMOXICILLIN 2016-0 Yes Q.5D Take by Met hodi ORAL - mouth [address] st 14:58: (two) Hospita 37 times a l day. metFORMIN 2016-0 Yes 1000mg Q.[id number] Take 1,000 [facility] (GLUCOPHAGE 01-10 [id number] mg by s t ) 1000 MG 14:58: 3D mouth 3 Hospi ta tablet 37 (three) l times a day. gabapentin 2016-0 Yes 400mg Q.[id number] Take 400 [facility] (NEURONTIN) 01-10 [id number] mg by s t 400 MG 14:58: 3D mouth 3 Hospita capsule 37 (three) l times a day. pravastatin 2016-0 Yes 40mg QD Take 40 mg [facility] (PRAVACHOL) - by mouth st 40 MG 14:58: [...] Take 5 mg M ethodi (PROSCAR) 5 01-[address] mg tablet 14:58: daily. Hospit a 37 l hydrochloro 2016-0 Yes 25mg QD Take 25 mg [facility] thiazide 01-[address] (HYDRODIURI 14:58: daily. Hosp briana L) 25 MG 37 l tablet propranolol 0 Yes 40mg Take 40 mg [facility] (INDERAL) 01-[address] 40 MG 14:58: daily. Hospita tablet 37 l cyanocobala 2015-0 Yes 100ug QD Take 100 M ethodi min 100 MCG 01-[address] tablet 14:58: mouth Hospita 37 daily. l insulin 2015-0 Yes 25U QD 25 Units Method i detemir 01-[address] (LEVEMIR) 14:58: Hospita 100 unit/mL 37 l injection esomeprazol 0 Yes 40mg QD Take 40 mg Methodi e (NexIUM) 01-[address] 40 MG 14:58: daily Hospita capsule 37 before l breakfast. therapeutic 0 Yes 1{tbl} QD Take 1 Me thodi [...] a l day. metFORMIN 2016-0 Yes 1000mg Q.43047189 Take 1,000 [facility] (GLUCOPHAGE 01-10 [id number] mg by s t ) 1000 MG 14:58: 3D mouth 3 Hospi ta tablet 37 (three) l times a day. gabapentin 2016-0 Yes 400mg Q.[id number] Take 400 [facility] (NEURONTIN) 01-10 [id number] mg by s t 400 MG 14:58: 3D mouth 3 Hospita capsule 37 (three) l times a day. pravastatin 2016-0 Yes 40mg QD Take 40 mg [facility] (PRAVACHOL) 9-[address] 40 MG 14:58: daily. Hospita tablet 37 l sertraline 0 Yes 100mg QD Take 100 Me thodi (ZOLOFT) 9-[address] 100 MG 14:58: mouth Hospita tablet 37 daily. l tamsulosin 0 Yes .4mg QD Take 0.4 Met hodi (FLOMAX) 9-[address] 0.4 mg 14:58: mouth Hospita capsule,ext 37 daily. l ended release 24hr potassium 20160 Yes 10meq Q.5D Take 10 Meth danis chloride 9-[address] (K-DUR,KLOR 14:58: mouth 2 Hos boby -CON) 10 37 (two) l MEQ CR times a tablet day. losartan 0 Yes 25mg QD Take 25 mg Met hodi (COZAAR) 50 9-[address] MG tablet 14:58: daily. Hospit a 37 l finasteride 0 Yes 5mg QD Take 5 mg M ethodi (PROSCAR) 5 9-[address] mg tablet 14:58: daily. Hospit a 37 l hydrochloro 20160 Yes 25mg QD Take 25 mg Methodi [...] Hospita capsule 37 before l breakfast. therapeutic 0 Yes 1{tbl} QD Take 1 Me thodi [...] times a l day. metFORMIN Yes 1000mg Q.[id number] Take 1,000 [facility] (GLUCOPHAGE 01-10 [id number] mg by s t ) 1000 MG 14:58: 3D mouth 3 Hospi ta tablet 37 (three) l times a day. latanoprost [...] l solution No known No Univers medications [facility] No known No Univers medications [facility] No known No Univers medications [facility] Vital Signs Vital Name Observation Time Observation Value Comments Source Systolic blood 2021-12-11 19:56:00 147 mm[Hg] Univer sity [facility] Diastolic blood 2021-12-11 19:56:00 88 mm[Hg] Unive [facility] Heart rate 2021-12-11 19:56:00 78 /min Universi [facility] Respiratory rate 2021-12-11 19:56:00 13 /min [facility] O[facility] saturation in 2021-12-11 19:56:00 96 /min [facility] Arterial blood [facility] Pulse oximetry [place] Body temperature 2021-12-11 17:37:00 36.06 Deepika [facility] Body height 2021-12-11 17:37:00 180.3 cm [facility] Body weight 2021-12-11 17:37:00 91.627 kg [facility] BMI 2021-12-11 17:37:00 28.17 kg/m2 [facility] Systolic blood 2019-10-18 19:49:00 149 mm[Hg] [facility] Diastolic blood 2019-10-18 19:49:00 87 mm[Hg] [facility] 2019-10-18 19:49:00 81 /min [facility] Body temperature 2019-10-18 19:49:00 36.17 Deepika [facility] Respiratory rate 2019-10-18 19:49:00 16 /min [facility] Oxygen saturation in 2019-10-18 19:49:00 97 /min [facility] Arterial [facility] Pulse oximetry [place] Procedures Procedure Date / Time Performing Clinician Source Performed ABORH CONFIRMATION (LAB 2021-12-11 19:45:00 Alex Poole [facility] ONLY) [facility] CT ANGIOGRAM 2021-12-11 19:36:42 Alex Poole [facility] ABDOMEN/PELVIS [facility] XR CHEST 1 VW 2021-12-11 18:35:31 Alex Poole [facility] LACTIC ACID WHOLE BLOOD 2021-12-11 18:21:00 Alex Poole [facility] HB ABO GROUPING 2021-12-11 18:20:00 [facility] LIPASE 2021-12-11 18:19:00 [facility] Alex [facility] TROPONIN I 2021-12-11 18:19:00 [facility] Alex [facility] COMP. METABOLIC PANEL 2021-12-11 18:19:00 Alex Poole [facility] ([id number]) Medical Branch CBC WITH DIFF 2021-12-11 18:19:00 [facility] Alex [facility] PROTHROMBIN TIME / INR 2021-12-11 18:19:00 [facility] Poole [facility] ACTIVATED PARTIAL 2021-12-11 18:19:00 Alex Poole [facility] THRMPLAS [facility] URINALYSIS 2021-12-11 18:19:00 Alex Poole [place] [facility] N-TERMINAL PRO-BNP 2021-12-11 18:19:00 [facility] NOTICE OF PRIVACY 2021-12-11 17:30:58 Doctor Unassigned, No Univ [facility] PRACTICES Name [facility] Plan of Care Planned Activity Planned Date Details Comments Source Future Scheduled 2022-04-04 COVID[facility]19 [facility] 01:26:36 [code = COVID-19 VACCINE (#1)] Future Scheduled 2022-04-04 COLONOSCOPY SCREENING [facility] Test 01:26:36 [code = COLONOSCOPY SCREENING] Future Scheduled 2022-04-04 SHINGLES VACCINES (1 Met [facility] Test 01:26:36 of 2) [code = SHINGLES VACCINES (1 of 2)] Future Scheduled 2022-04-04 65+ PNEUMOCOCCAL Method[facility] Hospital Test 01:26:36 VACCINE (1 - PCV) [code = 65+ PNEUMOCOCCAL VACCINE (1 - PCV)] Future Scheduled 2022-04-04 INFLUENZA VACCINE Method ist Hospital Test 01:26:36 [code = INFLUENZA VACCINE] Future Scheduled 2022-04-04 COVID-19 [facility] 01:26:36 [code = COVID-19 VACCINE (#1)] Future Scheduled 2022-04-04 [facility] Test 01:26:36 [code = COLONOSCOPY SCREENING] Future Scheduled 2022-04-04 SHINGLES VACCINES ([facility] 01:26:36 of 2) [code = SHINGLES VACCINES (1 of 2)] Future Scheduled 2022-04-04 65+ P[facility]UMOCOCCAL [facility] Hospital Test 01:26:36 VACCINE (1 - PCV) [code = 65+ PNEUMOCOCCAL VACCINE (1 - PCV)] Future Scheduled 2022-04-04 INFLUENZA VACCINE Method ist Hospital Test 01:26:36 [code = INFLUENZA VACCINE] Future Scheduled 2022-02-21 HEPATITIS B VACCINES Met [facility] Test 05:20:07 (1 of 3 - 3-dose series) [code = HEPATITIS B VACCINES (1 of 3 - 3-dose series)] Future Scheduled 2022-02-21 COVID-19 VACCINE (#1) [facility] Test 05:20:07 [code = COVID-19 VACCINE (#1)] Future Scheduled 2022-02-21 COLONOSCOPY SCREENING [facility] Test 05:20:07 [code = COLONOSCOPY SCREENING] Future Scheduled 2022-02-21 SHINGLES VACCINES (1 Met [facility] Hospital Test 05:20:07 of 2) [code = SHINGLES VACCINES (1 of 2)] Future Scheduled 2022-02-21 65+ PNEUMOCOCCAL Methodi [facility] Test 05:20:07 VACCINE (1 - PCV) [code = 65+ PNEUMOCOCCAL VACCINE (1 - PCV)] Future Scheduled 2022-02-21 INFLUENZA VACCINE Method [facility] Hospital Test 05:20:07 [code = INFLUENZA VACCINE] Future Scheduled 2021-12-19 HEPATITIS B VACCINES Met [facility] Test 20:37:05 (1 of 3 - 3-dose series) [code = HEPATITIS B VACCINES (1 of 3 - 3-dose series)] Future Scheduled 2021-12-19 COVID-19 VACCINE (#1) [facility] Test 20:37:05 [code = COVID-19 VACCINE (#1)] Future Scheduled 2021-12-19 COLONOSCOPY SCREENING [facility] Test 20:37:05 [code = COLONOSCOPY SCREENING] Future Scheduled 2021-12-19 SHINGLES VACCINES (1 Met [facility] Hospital Test 20:37:05 of 2) [code = SHINGLES VACCINES (1 of 2)] Future Scheduled 2021-12-19 65+ PNEUMOCOCCAL Methodi Hospital Test 20:37:05 VACCINE (1 - PCV) [code = 65+ PNEUMOCOCCAL VACCINE (1 - PCV)] Future Scheduled 2021-12-19 INFLUENZA VACCINE Method ist Hospital Test 20:37:05 [code = INFLUENZA VACCINE] Encounters Start End Encounter Admission Attending Care Care Encounter Source Date/Time Date/Time Type Type Clinicians Facility Department ID 2021-12-11 2021-12-11 Emergency [place], [facility] [id number] [facility] 12:44:00 15:46:00 Alex AMOR [id number] i [facility] [id number] [id number] [place] [id number] [place] 2021-12-11 2021-12-11 Emergency X EMORY [facility] ERT [id number] Univers 12:44:00 15:46:00 ALEX moreno [facility] 2019-10-18 2019-10-30 Urgent Pob1, Acute Care Clinic [facility] [id number]. [id number] Univers 14:46:42 16:21:40 Care Cari Hernandez [facility] [id number] ity of Busy [id number] [place]ando as Professio [id number] [address] Office [facility] 2019-10-20 2019-10-20 [facility]phone [facility] [id number] Univers 00:00:00 00:00:00 [facility] [id number] it y of Busy [id number] [place] as Professio [id number] [address] 2019-10-18 2019-10-18 Laboratory Lab, [facility] Fam Pob I [facility] 1.2. [id number] Univers 14:38:53 14:58:53 Only Edilma Flor [facility] [id number] ity of Busy 4.2.7.2.686 [place] as Professio [id number] [address] 2019-10-18 2019-10-18 Outpatient R CHACHO [facility] [id number] Univers 14:40:00 14:40:00 EDILMA [facility] 2019-10-18 2019-10-18 Outpatient R [facility] [id number] Univers 14:40:00 14:40:00 [facility] Results Test Description Test Time Test Comments Results Result Comments Source ABORH Confirmation (Lab Only) 2021-12-11 20:16:20 Test Item Value Reference Range Interpretation Comme nts ABO & RH (test code = 20) B Positive Pe rformed at [facility] Laboratory Services - [facility] Blood [address] [place] [id number] Free: [phone] A No. [id number] [facility] - ONCE [id number] 19:30:27 Test Item Value Reference Range Interpretation Comments ABO & RH (test code B Positive Performe d at [facility] = 20) Laboratory Serv [facility] Blood Bank1 [address] [place], [place] [address]Toll Free: [phone] A No. [id number] IAT (test code = Negative Performed a t [facility] 1185) Laboratory Serv [facility] Blood [facility]1 [address] [place], [place] [address]Toll Free: [phone] A No. [id number] [facility] [id number] 19:05:15 Test Item Value Reference Interpretation Comments Range TROPONIN I (test 0.004 ng/mL See_Comment [Automated code = 6104508036) message] The system which generated this result [...] biotin. Lab Interpretation Normal (test code = 33153-0) [facility] [id number] 19:01:53 Test Item Value Reference Range Interpretation Comments NT-proBNP (test code 140 pg/mL See_Comment [Autom ated = 5934895703) message] The system which generated this result transmitted reference range : <=450. The reference range was not used to interpret this result as normal/abnormal . MYKEL (test code = MYKEL) Biotin has been reported to cause a negative bias, interpret results relative to patient's use of biotin. Lab Interpretation Normal (test code = 08553-4) [facility]. METABOLIC PANEL (46804)2021-12-11 18:54:15 Test Item Value Reference Range Interpretation Comments NA (test code = 138 mmol/L 135-145 5641540622) K (test code = 4.0 mmol/L 3.5-5 8285256235) CL (test code = 103 mmol/L 98-108 0490300669) CO2 TOTAL (test code = 31 mmol/L 23-31 7889367122) AGAP (test code = 2-16 4490669657) BUN (test code = 19 mg/dL 7-23 8912525676) GLUCOSE (test code = 141 mg/dL 70-110 H 3660464212) CREATININE (test code = 0.53 mg/dL 0.6-1.25 L 3346310381) TOTAL BILI (test code = 1.7 mg/dL 0.1-1.1 H 6099791371) CALCIUM (test code = 9.0 mg/dL 8.6-10.6 3095175248) T PROTEIN (test code = 5.5 g/dL 6.3-8.2 L 9230051903) ALBUMIN (test code = 3.7 g/dL 3.5-5 9140453013) ALK PHOS (test code = 91 U/L 34-122 4300854318) ALTv (test code = 26 U/L 5-50 1742-6) AST(SGOT) (test code = 29 U/L 13-40 0580930487) eGFR (test code = mL/min/1.73m2 1331718426) MYKEL (test code = MYKEL) Association of [...] tests). Lab Interpretation Abnormal (test code = 39184-8) [facility] 18:54:15 Test Item Value Reference Range Interpretation Comments LIPASE (test code = 8863811388) 115 U/L 0-220 Lab Interpretation (test code = Normal 20421-9) [facility] THRMPLAS [id number] 18:50:55 Test Item Value Reference Range Interpretation Comments APTT Patient (test See_Comment [Automat ed code = 3173-2) message] The system which generated this result transmitted reference range : 23 - 38 Seconds . The reference range was not used to interpr et this result as normal/abnormal . MYKEL (test code = MYKEL) The [facility] patient population mean normal value for aPTT is 30 seconds. Lab Interpretation Normal (test code = 90227-1) [facility] / [id number] 18:48:51 Test Item Value Reference Range Interpretation [...] tions. Lab Interpretation (test Normal code = 82860-8) [facility] WITH [id number] 18:41:33 Test Item Value Reference Range Interpretation [...] (test code = 78.1 fL 38.5-51.6 H 27655-7) RDW-CV (test code = 26.1 % 12.1-15.4 H 788-0) PLT (test code = See_Comment L [Automated 777-3) message] The sy stem which generated this result transmitted reference range : 150 - 328 10*3/ ?L. The reference r karolina was not used to interpret this result as normal/abnormal . MPV (test code = 10.1 fL 9.8-13 16937-1) NRBC/100 WBC (test See_Comment [Automat ed code = 4850110401) message] The system which generated this result transmitted reference range : 0.0 - 10.0 /100 WBCs. The refer ence range was not u sed to interpret th is result as normal/abnormal . NRBC x10^3 (test code See_Comment [Auto mated = 0171687130) message] The s ystem which generated this result transmitted reference range : 10*3/?L. The reference range was not used to interpret this result as normal/abnormal . GRAN MAT (NEUT) % 74.1 % (test code = 770-8) IMM GRAN % (test code 0.50 % = 2117045241) LYMPH % (test code = 13.8 % 736-9) MONO % (test code = 7.7 % 5905-5) EOS % (test code = 3.4 % 713-8) BASO % (test code = 0.5 % 706-2) GRAN MAT x10^3(ANC) 3.07 10*3/uL 1.99-6.95 (test code = 8378542480) IMM GRAN x10^3 (test 0-0.06 code = 2263649075) LYMPH x10^3 (test code 0.57 10*3/uL 1.09-3.23 L = 731-0) MONO x10^3 (test code 0.32 10*3/uL 0.36-1.02 L = 742-7) EOS x10^3 (test code = 0.14 10*3/uL 0.06-0.53 711-2) BASO x10^3 (test code 0.01-0.09 = 704-7) Lab Interpretation Abnormal (test code = 04262-3) [facility]"
--- NOTE | 2022-05-07 14:06 | EDPHYS ---
Physician Documentation [facility] Name: Abdoulaye Mcdonald Age: 76 yrs Sex: Male : 1945 Arrival Date: 05/07/2022 Time: 12:43 Bed 7 Private MD: ED Physician David Meneses HPI: 05/07 14:18 This 76 yrs old Male presents to ER via Wheelchair with complaints of Abdominal jmm Distention. 14:18 The patient presents with abdominal distention. Onset: The symptoms/episode jmm began/occurred gradually. The symptoms do not radiate. Associated signs and symptoms: Pertinent negatives: fever. This is a 76 year old male with a history of cirrhosis, dm, htn that presents to the ED with complaints of abdominal distention. [facility]. Denies fever. . Historical: - Allergies: 12:52 No Known Allergies; aa5 - PMHx: 12:52 cirrhosis of liver; diabetes mellitus; Hypertensive disorder; GI bleed; aa5 - PSHx: 12:52 back; Cholecystectomy; Esophageal band; aa5 - Immunization history:: Adult Immunizations unknown. - Social history:: Smoking status: unknown. ROS: 14:18 Constitutional: Negative for fever, chills, and weight loss, Cardiovascular: Negative jmm for chest pain, palpitations, and edema, Respiratory: Negative for shortness of breath, cough, wheezing, and pleuritic chest pain. 14:18 Abdomen/GI: Positive for abdominal distension. 14:18 All other systems are negative. Exam: 14:18 Constitutional: This is a well developed, well nourished patient who is awake, alert, jmm and in no acute distress. Head/Face: atraumatic. Eyes: EOMI, no conjunctival erythema appreciated ENT: Moist Mucus Membranes Neck: Trachea midline, Supple Chest/axilla: Normal chest wall appearance and motion. Cardiovascular: Regular rate and rhythm. No edema appreciated Respiratory: Normal respirations, no respiratory distress appreciated 14:18 Back: Normal ROM Skin: General appearance color normal MS/ Extremity: Moves all extremities, no obvious deformities appreciated, no edema noted to the lower extremities Neuro: Awake and alert Psych: Behavior is normal, Mood is normal, Patient is cooperative and pleasant 14:18 Abdomen/GI: Inspection: distension, that is moderate, Palpation: soft. Vital Signs: 12:48 BP 111 / 68; Pulse 87; Resp 24 S; Temp 98.7(O); Pulse Ox 94% on R/A; aa5 13:19 BP 101 / 64; Pulse 84; Resp 18; Pulse Ox 93% on R/A; ld1 MDM: 12:55 Patient medically screened. [facility] 14:04 Data reviewed: vital signs, nurses notes. Consideration of Admission/Observation. [facility] Management of patient was discussed with the following: Electronic Security Specialist: Dr. Dickson. Discussion of test interpretation with radiology: I had a discussion with radiology regarding a test interpretation. Outpatient paracentesis. 14:22 ED course: I discussed the patient with Dr. Mendoza whom recommended scheduling the [facility] patient for an outpatient paracentesis for tomorrow morning at 8:30 AM. In order was sent into scheduling. I have yet to have received confirmation. Patient is currently not in any distress. Vital signs are normal. I did give them strict return precautions for increased shortness of breath, fever, abdominal pain, etc. They understood and agree with plan of care. They are otherwise advised to return to the ER. I did further discuss this with Dr. Aldrich who stated that he would be able to perform the paracentesis tomorrow with the patient came in through the ER as well.. Administered Medications: 14:10 Drug: Juliaetta (HYDROcodone-acetaminophen) 10 mg-325 mg 1 tabs Route: PO; kr3 14:44 Follow up: Response: No adverse reaction; RASS: Alert and Calm (0) kr3 Disposition: 17:00 Co-signature as Attending Physician, David Meneses MD I reviewed the patient's care rt provided by the Advanced Practice Provider and agree with the diagnosis and treatment plan. Disposition Summary: 05/07/22 14:06 Discharge Ordered Location: Home [facility] Condition: Stable [facility] Diagnosis - Other ascites [facility] Followup: [facility] - With: Private Physician - When: Tomorrow - Reason: Recheck today's complaints, Continuance of care, Re-evaluation by your physician Discharge Instructions: - Discharge Summary Sheet [facility] - Ascites [facility] Forms: - Medication Reconciliation Form [facility] - Thank You Letter [facility] - Antibiotic Education [facility] - Prescription Opioid Use [facility] Signatures: Andriy Saeed PA PA jmm Calderon, Audri, RN RN aa5 Alexandra Villanueva, RN RN kr3 David Meneses, MD rt
--- NOTE | 2022-05-07 14:06 | ER ---
Nurse's Notes [facility] Name: Abdoulaye Mcdonald Age: 76 yrs Sex: Male : 1945 Arrival Date: 05/07/2022 Time: 12:43 Bed 7 Private MD: Diagnosis: Other ascites Presentation: 05/07 12:48 Chief complaint: Patient states: "I need my belly drained". Reports hx of ascites, aa5 reports abd pressure and SOB. Reports he was admitted to the [facility] 2 weeks ago. 12:48 Onset of symptoms was April 2022. aa5 12:48 Acuity: BRANDON 3 aa5 12:48 Method Of Arrival: Wheelchair aa5 12:48 Coronavirus screen: shortness of breath. Ebola Screen: Patient denies travel to an the [facility] Ebola-affected area in the 21 days before illness onset. Initial Sepsis Screen: Does the patient meet any 2 criteria? No. Patient's initial sepsis screen is negative. Does the patient have a suspected source of infection? No. Patient's initial sepsis screen is negative. Risk Assessment: Do you want to hurt yourself or someone else? Patient reports no desire to harm self or others. Triage Assessment: 14:40 General: Appears in no apparent distress. uncomfortable, Behavior is calm, cooperative, kr3 appropriate for age. Pain: Complains of pain in abdomen. Historical: - Allergies: 12:52 No Known Allergies; aa5 - PMHx: 12:52 cirrhosis of liver; diabetes mellitus; Hypertensive disorder; GI bleed; aa5 - PSHx: 12:52 back; Cholecystectomy; Esophageal band; aa5 - Immunization history:: Adult Immunizations unknown. - Social history:: Smoking status: unknown. Screenin:40 [facility] ED Fall Risk Assessment (Adult) History of falling in the last 3 months, kr3 including since admission No falls in past 3 months (0 pts) Confusion or Disorientation No (0 pts) Intoxicated or Sedated No (0 pts) Impaired Gait No (0 pts) Mobility Assist Device Used No (0 pt) Altered Elimination No (0 pt) Score/Fall Risk Level 0 - 2 = Low Risk Oriented to surroundings, Maintained a safe environment, Educated pt \\T\\ family on fall prevention, incl call for assistance when getting out of bed. Abuse screen: Denies threats or abuse. Nutritional screening: No deficits noted. Tuberculosis screening: No symptoms or risk factors identified. Assessment: 14:43 GI: kr3 Vital Signs: 12:48 BP 111 / 68; Pulse 87; Resp 24 S; Temp 98.7(O); Pulse Ox 94% on R/A; aa5 13:19 BP 101 / 64; Pulse 84; Resp 18; Pulse Ox 93% on R/A; ld1 ED Course: 12:43 Patient arrived in ED. am2 12:44 Andriy Saeed PA is PHCP. jmm 12:44 David Meneses MD is Attending Physician. jmm 12:48 Arm band placed on Patient placed in an exam room, on a stretcher. aa5 12:50 Bed in low position. Call light in reach. Side rails up X 1. kr3 12:52 Yuki Camacho, RN is Primary Nurse. ld1 12:54 Triage completed. aa5 14:42 No provider procedures requiring assistance completed. kr3 14:42 Patient did not have IV access during this emergency room visit. kr3 Administered Medications: 14:10 Drug: Frederic (HYDROcodone-acetaminophen) 10 mg-325 mg 1 tabs Route: PO; kr3 14:44 Follow up: Response: No adverse reaction; RASS: Alert and Calm (0) kr3 Medication: 14:43 VIS not applicable for this client. kr3 Outcome: 14:06 Discharge ordered by . [facility] 14:43 Discharged to home via wheelchair. kr3 14:43 Condition: stable 14:43 Discharge instructions given to patient, family, Instructed on discharge instructions, follow up and referral plans. Demonstrated understanding of instructions, follow-up care. 14:44 Patient left the ED. kr3 Signatures: Andriy Saeed PA PA jmm Calderon, Audri, RN RN aa5 Karina Robert am2 Yuki Camacho, RN RN ld1 Alexandra Villanueva RN RN kr3 Corrections: (The following items were deleted from the chart) 12:55 12:48 Chief complaint: Patient states: "I need my belly drained". Reports hx of aa5 ascites, reports abd pressure and SOB. aa5
[2022-05-07] MEDS ORDERED: HYDROCODONE/APAP 10/325 TAB ONE (14:11)
[2022-05-07 14:49] VITALS: TEMP 98.7
[2022-05-07 14:50] VITALS: BP 101/64; O2SAT 93
== END 2022-05-07 14:44 | disposition home or self-care (01) ==
LOC: ER 12:40
DX: R18.8 Other ascites (principal); K74.60 Unspecified cirrhosis of liver; I10 Essential (primary) hypertension; E11.9 Type 2 diabetes mellitus without complications

== ENCOUNTER 2022-05-08 08:21 | Emergency (ER) | payer OTHER, MEDICARE ==
--- OUTSIDE RECORDS SUMMARY | 2022-05-08 08:26 | XMS REPORT | Continuity of Care Document ---
:1945 Author Organization [facility] t Address [address] [place] [address] Care Team Providers Name Role Phone GEORGI [...] rs active active ity of problems problems [facility] Allergies, Adverse Reactions, Alerts Allergy Allergy Status Severity Reaction(s) Onset Inactive Treating Comm ents Source Name Type Date Date Clinician NO KNOWN Drug Active Univers ALLERGIE Class ity of S [facility] Social History Social Habit Start Date Stop Date Quantity Comments Source Exposure to 2021-12-01 2021-12-11 Not sure University SARS-CoV-2 00:00:00 13:24:00 [facility] (event) [place] Alcohol intake 2016-01-15 2016-01-15 Current [facility] 00:00:00 00:00:00 non-drinker of alcohol (finding) Tobacco use and 2016-01-11 2016-01-11 Smokeless tobacco [facility] exposure 00:00:00 00:00:00 non-user Tobacco Comment 2016-01-11 2016-01-11 quit cigars about [facility] 00:00:00 00:00:00 4 years ago History of 1996-01-[address] [facility] tobacco use 00:00:00 Sex Assigned At [birth year] [facility] 00:00:00 00:00:00 Smoking Status Start Date Stop Date Source Tobacco smoking [facility] consumption unknown [facility] Ex-smoker 2016-01-11 00:00:00 2016-01-11 [facility] 00:00:00 Medications Ordered Filled Start Stop Current Ordering Indication Dosage Frequency Signature Comments Components Source Medication Medication Date Date Medication? Clinician (SIG) Name Name iopamidol 2021- No [id number] 110mL 110 mL, Univers (ISOVUE 12-11 Intravenou ity o f 370-500 mL) 20:45: 20:45 s, ONCE, 1 [place] injection 00 :00 dose, On Medica l 110 mL Tue Branch 12/11/21 at 1545, Routine gabapentin Yes 400mg Q.[id number] Take 400 [facility] (NEURONTIN) 01-10 [id number] mg by s t 400 MG 14:58: 3D mouth 3 Hospita capsule 37 (three) l times a day. pravastatin Yes 40mg QD Take 40 mg [facility] (PRAVACHOL) 01-[address] 40 MG 14:58: daily. Hospita tablet 37 l sertraline Yes 100mg QD Take 100 Me [facility]odi (ZOLOFT) 9-[address] 100 MG 14:58: mouth Hospita tablet 37 daily. l metFORMIN 2015- Yes 1000mg Q.[id number] Take 1,000 [facility] (GLUCOPHAGE 01-10 [id number] mg by s t ) 1000 MG 14:58: 3D mouth 3 Hospi ta tablet 37 (three) l times a day. tamsulosin 0 Yes .4mg QD Take [...] mouth Hospita (THERAGRAN) 37 daily. l tablet gabapentin 2015-0 Yes 400mg Q.[id number] Take 400 [facility] (NEURONTIN) - [id number] mg by s t 400 MG 14:58: 3D mouth 3 Hospita capsule 37 (three) l times a day. dorzolamide 2016-0 Yes 1[drp] Q.5D Administer [facility] -timolol 01-[address] (COSOPT) 14:58: both eyes Hosp briana 22.3-6.8 37 2 (two) l mg/mL times a ophthalmic day. solution AMOXICILLIN 2016-0 Yes Q.5D Take by Met hodi ORAL 9-[address] 14:58: (two) Hospita 37 times a l day. metFORMIN 2016-0 Yes 1000mg Q.[id number] Take 1,000 [facility] (GLUCOPHAGE 01-10 [id number] mg by s t ) 1000 MG 14:58: 3D mouth 3 Hospi ta tablet 37 (three) l times a day. gabapentin 2016-0 Yes 400mg Q.[id number] Take 400 [facility] (NEURONTIN) 01-10 [id number] mg by s t 400 MG 14:58: [...] L) 25 MG 37 l tablet propranolol 2016-0 Yes 40mg Take 40 mg [facility] (INDERAL) 9-[address] 40 MG 14:58: daily. Hospita tablet 37 l cyanocobala 2016- Yes 100ug QD Take 100 M ethodi [...] mg/mL times a ophthalmic day. solution AMOXICILLIN 2015-0 Yes Q.5D Take by Met hodi ORAL - mouth 2 st 14:58: (two) Hospita 37 times a l day. pravastatin 0 Yes 40mg QD Take 40 mg [...] MEQ CR times a tablet day. losartan 2015-0 Yes 25mg QD Take 25 mg Met [...] a l day. metFORMIN 2016-0 Yes 1000mg Q.[id number] Take 1,000 [facility] (GLUCOPHAGE 01-10 [id number] mg by s t ) 1000 MG 14:58: 3D mouth 3 Hospi ta tablet 37 (three) l times a day. gabapentin 2016-0 Yes 400mg Q.[id number] Take 400 [facility] (NEURONTIN) 01-10 [id number] mg by s t 400 MG 14:58: [...] a l day. metFORMIN 2016-0 Yes 1000mg Q.[id number] Take 1,000 [facility] (GLUCOPHAGE - [id number] mg by s t ) 1000 MG 14:58: 3D mouth 3 Hospi ta tablet 37 (three) l times a day. gabapentin 2016-0 Yes 400mg Q.[id number] Take 400 [facility] (NEURONTIN) 01-10 [id number] mg by s t 400 MG 14:58: [...] times a l day. metFORMIN Yes 1000mg Q.[id number] Take 1,000 [facility] (GLUCOPHAGE 01-10 [id number] mg by s t ) 1000 MG 14:58: 3D mouth 3 Hospi ta tablet 37 (three) l times a day. latanoprost Yes 1[drp] QD Administer [facility] (XALATAN) 10-[address] 0.005 % 00:00: both eyes Hospi ta ophthalmic 00 nightly. l solution latanoprost 0 Yes 1[drp] QD Administer [facility] (XALATAN) [address] 0.005 % 00:00: [...] l solution No known No Univers medications ity [facility] No known No Univers medications [facility] No known No Univers medications [facility] Vital Signs Vital Name Observation Time Observation Value Comments Source Systolic blood 2021-12-11 19:56:00 147 mm[Hg] [facility] Diastolic blood 2021-12-11 19:56:00 88 mm[Hg] [facility] Heart rate 2021-12-11 19:56:00 78 /min [facility] Respiratory rate 2021-12-11 19:56:00 13 /min [facility] Oxygen saturation in 2021-12-11 19:56:00 96 /min [facility] Arterial blood by [facility] Pulse oximetry [place] Body temperature 2021-12-11 17:37:00 36.06 Deepika [facility] Body height 2021-12-11 17:37:00 180.3 cm [facility] Body weight 2021-12-11 17:37:00 91.627 kg [facility] BMI 2021-12-11 17:37:00 28.17 kg/m2 [facility] Systolic blood 2019-10-18 19:49:00 149 mm[Hg] [facility]iver [facility] Diastolic blood 2019-10-18 19:49:00 87 mm[Hg] [facility] Heart rate 2019-10-18 19:49:00 81 /min [facility] Body temperature 2019-10-18 19:49:00 36.17 Deepika [facility] Respiratory rate 2019-10-18 19:49:00 16 /min [facility] Oxygen saturation in 2019-10-18 19:49:00 97 /min University Arterial blood by [facility] Pulse oximetry Branch Procedures Procedure Date / Time Performing Clinician Source Performed ABORH CONFIRMATION (LAB 2021-12-11 19:45:00 Alex Poole [facility] ONLY) Medical Branch CT ANGIOGRAM 2021-12-11 19:36:42 Alex Poole [facility] ABDOMEN/PELVIS [facility] XR CHEST 1 VW 2021-12-11 18:35:31 Alex Poole [facility] LACTIC ACID WHOLE BLOOD 2021-12-11 18:21:00 Alex Poole [facility] HB ABO GROUPING 2021-12-11 18:20:00 Alex Poole [facility] LIPASE 2021-12-11 18:19:00 Alex Poole [facility] TROPONIN I 2021-12-11 18:19:00 Alex Poole [facility] COMP. METABOLIC PANEL 2021-12-11 18:19:00 Alex Poole [facility] ([id number]) Medical Branch CBC WITH DIFF 2021-12-11 18:19:00 Alex Poole [facility] PROTHROMBIN TIME / INR 2021-12-11 18:19:00 Alex Poole [facility] ACTIVATED PARTIAL 2021-12-11 18:19:00 Alex Poole [facility] THRMPLAS [facility] URINALYSIS 2021-12-11 18:19:00 [facility] N-TERMINAL PRO-BNP 2021-12-11 18:19:00 Alex Poole [facility] NOTICE OF PRIVACY 2021-12-11 17:30:58 Doctor Unassigned, No [facility] PRACTICES Name Medical Branch Plan of Care Planned Activity Planned Date Details Comments Source Future Scheduled 2022-04-04 COVID-19 VACCINE (#1) [facility] Test 01:26:36 [code = COVID-19 VACCINE (#1)] Future Scheduled 2022-04-04 COLONOSCOPY SCREENING [facility] Test 01:26:36 [code = COLONOSCOPY SCREENING] Future Scheduled 2022-04-04 SHINGLES VACCINES (1 Met [facility] Test 01:26:36 of 2) [code = SHINGLES VACCINES (1 of 2)] Future Scheduled 2022-04-04 65+ PNEUMOCOCCAL [facility] Test 01:26:36 VACCINE (1 - PCV) [code = 65+ PNEUMOCOCCAL VACCINE (1 - PCV)] Future Scheduled 2022-04-04 INFLUENZA VACCINE [facility] Test 01:26:36 [code = INFLUENZA VACCINE] Future Scheduled 2022-04-04 COVID-19 VACCINE (#1) [facility] Test 01:26:36 [code = COVID-19 VACCINE (#1)] Future Scheduled 2022-04-04 COLONOSCOPY SCREENING [facility] Test 01:26:36 [code = COLONOSCOPY SCREENING] Future Scheduled 2022-04-04 SHINGLES VACCINES (1 [facility] Test 01:26:36 of 2) [code = SHINGLES VACCINES (1 of 2)] Future Scheduled 2022-04-04 65+ PNEUMOCOCCAL [facility] Test 01:26:36 VACCINE (1 - PCV) [code = 65+ PNEUMOCOCCAL VACCINE (1 - PCV)] Future Scheduled 2022-04-04 INFLUENZA VACCINE [facility] Test 01:26:36 [code = INFLUENZA VACCINE] Future Scheduled 2022-04-04 COVID-19 VACCINE (#1) [facility] Test 01:26:36 [code = COVID-19 VACCINE (#1)] Future Scheduled 2022-04-04 COLONOSCOPY SCREENING [facility] Test 01:26:36 [code = COLONOSCOPY SCREENING] Future Scheduled 2022-04-04 SHINGLES VACCINES (1 [facility] Test 01:26:36 of 2) [code = SHINGLES VACCINES (1 of 2)] Future Scheduled 2022-04-04 65+ P[facility]UMOCOCCAL [facility] Test 01:26:36 VACCINE (1 - PCV) [code = 65+ PNEUMOCOCCAL VACCINE (1 - PCV)] Future Scheduled 2022-04-04 INFLUENZA VACCINE [facility] Hospital Test 01:26:36 [code = INFLUENZA VACCINE] Future Scheduled 2022-02-21 HEPATITIS B VACCINES [facility] Test 05:20:07 (1 of 3 - 3-dose series) [code = HEPATITIS B VACCINES (1 of 3 - 3-dose series)] Future Scheduled 2022-02-21 COVID-19 VACCINE (#1) [facility] Test 05:20:07 [code = COVID-19 VACCINE (#1)] Future Scheduled 2022-02-21 COLONOSCOPY SCREENING [facility] Test 05:20:07 [code = COLONOSCOPY SCREENING] Future Scheduled 2022-02-21 SHINGLES VACCINES (1 Met [facility] Test 05:20:07 of 2) [code = SHINGLES VACCINES (1 of 2)] Future Scheduled 2022-02-21 65+ PNEUMOCOCCAL [facility] Test 05:20:07 VACCINE (1 - PCV) [code = 65+ PNEUMOCOCCAL VACCINE (1 - PCV)] Future Scheduled 2022-02-21 INFLUENZA VACCINE [facility] Test 05:20:07 [code = INFLUENZA VACCINE] Future Scheduled 2021-12-19 HEPATITIS B VACCINES Met [facility] Test 20:37:05 (1 of 3 - 3-dose series) [code = HEPATITIS B VACCINES (1 of 3 - 3-dose series)] Future Scheduled 2021-12-19 COVID-19 VACCINE (#1) [facility] Test 20:37:05 [code = COVID-19 VACCINE (#1)] Future Scheduled 2021-12-19 COLONOSCOPY SCREENING [facility] Test 20:37:05 [code = COLONOSCOPY SCREENING] Future Scheduled 2021-12-19 SHINGLES VACCINES (1 Met [facility] Test 20:37:05 of 2) [code = SHINGLES VACCINES (1 of 2)] Future Scheduled 2021-12-19 65+ P[facility]UMOCOCCAL [facility] Test 20:37:05 VACCINE (1 - PCV) [code = 65+ PNEUMOCOCCAL VACCINE (1 - PCV)] Future Scheduled 2021-12-19 INFLUENZA VACCINE [facility] Test 20:37:05 [code = INFLUENZA VACCINE] Encounters Start End Encounter Admission Attending Care Care Encounter Source Date/Time Date/Time Type Type Clinicians Facility Department ID 2021-12-11 2021-12-11 Emergency KALYN Poole [id number] Univers 12:44:00 15:46:00 Alex AMOR [id number] i Khoa [id number] [facility] [id number] [facility] 084 Branch 2021-12-11 2021-12-11 Emergency X KALYN POOLE ERT [id number] Univers 12:44:00 15:46:00 ALEX ity [facility] 2019-10-18 2019-10-30 Urgent Pob1, Acute Care Clinic [facility] [id number]. [id number] Univers 14:46:42 16:21:40 Care Cari Hernandez [facility] [id number] [facility] [place] [id number] Nando as Professio [phone] [address] Office [facility] One 2019-10-20 2019-10-20 [facility]phone [facility] [id number] Univers 00:00:00 00:00:00 Nathan [facility] [id number] it [place] 4.2.7.2.686 Nando as Professio [id number] [address] Office [facility] 2019-10-18 2019-10-18 Laboratory Lab, [facility] Pob I [facility] 1.2. [id number] Univers 14:38:53 14:58:53 Only Edilma Flor [facility] [id number] [facility] [place] 4.2.7.2.686 Nando as Professio [id number] [address] 2019-10-18 2019-10-18 Outpatient R CHACHO [facility] [id number] Univers 14:40:00 14:40:00 [facility] 2019-10-18 2019-10-18 Outpatient R [facility] [id number] Univers 14:40:00 14:40:00 [facility] Results Test Description Test Time Test Comments Results Result Comments Source ABORH Confirmation (Lab Only) 2021-12-11 20:16:20 Test Item Value Reference Range Interpretation Comme nts ABO & RH (test code = 20) B Positive Pe rformed at [facility] Laboratory Services - [facility] Blood [address] [place] [address]Busk Free: [phone] A No. [id number] [facility] and Screen - ONCE [id number] 19:30:27 Test Item Value Reference Range Interpretation Comments ABO & RH (test code B Positive Performe d at [facility] = 20) Laboratory Serv [facility] Blood Bank1 [address] [place], [place] [phone] Free: [phone] A No. [id number] IAT (test code = Negative Performed a t [facility] 1185) Laboratory [facility] Blood Bank1 [address] [place] [address]Psqs Free: [phone] A No. [id number] [facility] CenterTROP[facility]IN [id number] 19:05:15 Test Item Value Reference Interpretation Comments Range TROPONIN I (test 0.004 ng/mL See_Comment [Automated code = 3121151902) message] The system which generated this result [...] biotin. Lab Interpretation Normal (test code = 08628-1) [facility] Center[facility]MINAL [id number] 19:01:53 Test Item Value Reference Range Interpretation Comments NT-proBNP (test code 140 pg/mL See_Comment [Autom ated = 3774149330) message] The system which generated this result transmitted reference range : <=450. The reference range was not used to interpret this result as normal/abnormal . MYKEL (test code = MYKEL) Biotin has been reported to cause a negative bias, interpret results relative to patient's use of biotin. Lab Interpretation Normal (test code = 55345-3) [facility] CenterCOMP. METABOLIC PANEL (12384)2021-12-11 18:54:15 Test Item Value Reference Range Interpretation Comments NA (test code = 138 mmol/L 135-145 7769589019) K (test code = 4.0 mmol/L 3.5-5 3608096097) CL (test code = 103 mmol/L 98-108 0140770787) CO2 TOTAL (test code = 31 mmol/L 23-31 7145275936) AGAP (test code = 2-16 5471892209) BUN (test code = 19 mg/dL 7-23 0282641144) GLUCOSE (test code = 141 mg/dL 70-110 H 0729748515) CREATININE (test code = 0.53 mg/dL 0.6-1.25 L 0721929749) TOTAL BILI (test code = 1.7 mg/dL 0.1-1.1 H 9280714847) CALCIUM (test code = 9.0 mg/dL 8.6-10.6 9814244930) T PROTEIN (test code = 5.5 g/dL 6.3-8.2 L 2636913724) ALBUMIN (test code = 3.7 g/dL 3.5-5 3069079830) ALK PHOS (test code = 91 U/L 34-122 3007786384) ALTv (test code = 26 U/L 5-50 1742-6) AST(SGOT) (test code = 29 U/L 13-40 0166024762) eGFR (test code = mL/min/1.73m2 0929893084) MYKEL (test code = MYKEL) Association of [...] tests). Lab Interpretation Abnormal (test code = 03180-2) [facility] CenterLIPASE2022-08-23 18:54:15 Test Item Value Reference Range Interpretation Comments LIPASE (test code = 6101820409) 115 U/L 0-220 Lab Interpretation (test code = Normal 10382-4) [facility] CenterACTIVATED PARTIAL THRMPLAS [id number] 18:50:55 Test Item Value Reference Range Interpretation Comments APTT Patient (test See_Comment [Automat ed code = 3173-2) message] The system which generated this result transmitted reference range : 23 - 38 Seconds . The reference range was not used to interpr et this result as normal/abnormal . MYKEL (test code = MYKEL) The [facility] patient population mean normal value for aPTT is 30 seconds. Lab Interpretation Normal (test code = 42283-4) [facility] CenterPROTHROMBIN TIME / [id number] 18:48:51 Test Item Value Reference Range Interpretation [...] tions. Lab Interpretation (test Normal code = 06709-8) [facility] CenterCB WITH [id number] 18:41:33 Test Item Value Reference Range Interpretation [...] (test code = 78.1 fL 38.5-51.6 H 37120-1) RDW-CV (test code = 26.1 % 12.1-15.4 H 788-0) PLT (test code = See_Comment L [Automated 777-3) message] The sy stem which generated this result transmitted reference range : 150 - 328 10*3/ ?L. The reference r karolina was not used to interpret this result as normal/abnormal . MPV (test code = 10.1 fL 9.8-13 42598-6) NRBC/100 WBC (test See_Comment [Automat ed code = 2386864544) message] The system which generated this result transmitted reference range : 0.0 - 10.0 /100 WBCs. The refer ence range was not u sed to interpret th is result as normal/abnormal . NRBC x10^3 (test code See_Comment [Auto mated = 4176507929) message] The s ystem which generated this result transmitted reference range : 10*3/?L. The reference range was not used to interpret this result as normal/abnormal . GRAN MAT (NEUT) % 74.1 % (test code = 770-8) IMM GRAN % (test code 0.50 % = 8826984408) LYMPH % (test code = 13.8 % 736-9) MONO % (test code = 7.7 % 5905-5) EOS % (test code = 3.4 % 713-8) BASO % (test code = 0.5 % 706-2) GRAN MAT x10^3(ANC) 3.07 10*3/uL 1.99-6.95 (test code = 1151612934) IMM GRAN x10^3 (test 0-0.06 code = 7793802770) LYMPH x10^3 (test code 0.57 10*3/uL 1.09-3.23 L = 731-0) MONO x10^3 (test code 0.32 10*3/uL 0.36-1.02 L = 742-7) EOS x10^3 (test code = 0.14 10*3/uL 0.06-0.53 711-2) BASO x10^3 (test code 0.01-0.09 = 704-7) Lab Interpretation Abnormal (test code = 52055-5) [facility]"
[2022-05-08 08:56] LABS: Absolute Lymphocytes (CBC) 0.9 K/uL (0.7-4.9); Hematocrit 31.4 % (39.6-49.0); Lymphocytes % 17.4 % (15.3-44.8); MCV 86.2 fL (80-100); MPV 7.7 fL (7.6-11.3); RBC Red Blood Cell Count 3.65 M/uL (4.33-5.43)
[2022-05-08 09:06] LABS: Albumin 2.5 g/dL (3.4-5.0); Bilirubin Total 1.6 mg/dL (0.2-1.0); Potassium 3.9 mmol/L (3.5-5.1); Protein, Total 6.4 g/dL (6.4-8.2)
[2022-05-08] MEDS ORDERED: D10W 250 ML IV ONE (09:12)
--- NOTE | 2022-05-08 11:53 | RAD REPORT ---
EXAM DESCRIPTION: US - Paracentesis Proc Guidance - 05/08/2022 11:35 am CLINICAL HISTORY: ABD PAIN Ascites COMPARISON: No comparisons FINDINGS: Informed consent was obtained and time-out was performed. Patient's abdomen was prepped and draped in the usual sterile fashion. 1% lidocaine was used for loca l anesthetic purposes. A small skin incision was made right upper quadrant. A paracentesis catheter was guided into the nirmal octaviano cavity under sonographic guidance. A small amount of fluid was sent for requested lab studies. A large volume paracentesis was performed . The patient tolerated the procedure well. IMPRESSION: Successful ultrasound-guided paracentesis.
--- NOTE | 2022-05-08 11:53 | ER ---
Nurse's Notes [facility] Name: Abdoulaye Mcdonald Age: 76 yrs Sex: Male : 1945 Arrival Date: 05/08/2022 Time: 08:24 Bed 8 Private MD: Diagnosis: Abdominal pain, Generalized;Other ascites Presentation: 05/08 08:34 Chief complaint: Patient states: was seen yesterday and was supposed to have a iw paracentesis scheduled for today but they could not schedule it , last drained 3 weeks ago, increased abd swelling and SOB over past 2 weeks. Coronavirus screen: At this time, the client does not indicate any symptoms associated with coronavirus-19. Ebola Screen: Patient negative for fever greater than or equal to 101.5 degrees Fahrenheit, and additional compatible Ebola Virus Disease symptoms Patient denies exposure to infectious person. Patient denies travel to an Ebola-affected area in the 21 days before illness onset. No symptoms or risks identified at this time. Initial Sepsis Screen: Does the patient meet any 2 criteria? No. Patient's initial sepsis screen is negative. Does the patient have a suspected source of infection? No. Patient's initial sepsis screen is negative. Risk Assessment: Do you want to hurt yourself or someone else? Patient reports no desire to harm self or others. Onset of symptoms was April 24, 2022. 08:34 Method Of Arrival: Wheelchair iw 08:34 Acuity: BRANDON 3 iw Historical: - Allergies: 08:40 No Known Allergies; iw - Home Meds: 08:40 acarbose 25 mg Oral tab 1 tab daily [Active]; citalopram 40 mg tab 1 tab once daily iw [Active]; gabapentin 100 mg Oral cap [Active]; gemfibrozil 600 mg Oral tab 1 tab 2 times per day [Active]; hydrochlorothiazide 25 mg Oral tab 1 tab 2 times per day [Active]; Insulin Glargine Sub-Q [Active]; losartan 50 mg Oral tab 1 tab once daily [Active]; metformin 1,000 mg Oral tab 1 tab 2 times per day for Type 2 Diabetes Mellitus [Active]; - PMHx: 08:40 cirrhosis of liver; Hypertensive disorder; GI Bleed; diabetes mellitus; iw - PSHx: 08:40 back; Cholecystectomy; Esophageal band; iw - Immunization history:: Client reports receiving the 2nd dose of the Covid vaccine. - Social history:: Smoking status: Patient/guardian denies using tobacco, but has a distant history of tobacco abuse. Screenin:48 [facility] ED Fall Risk Assessment (Adult) History of falling in the last 3 months, jl7 including since admission No falls in past 3 months (0 pts) Confusion or Disorientation No (0 pts) Intoxicated or Sedated No (0 pts) Impaired Gait No (0 pts) Mobility Assist Device Used No (0 pt) Altered Elimination No (0 pt) Score/Fall Risk Level 0 - 2 = Low Risk Oriented to surroundings, Maintained a safe environment, Educated pt \T\ family on fall prevention, incl call for assistance when getting out of bed, Hourly rounding (assess needs \T\ fall precautionary measures) done. Abuse screen: Denies threats or abuse. Denies injuries from another. Nutritional screening: No deficits noted. Tuberculosis screening: No symptoms or risk factors identified. Assessment: 08:41 General: Appears in no apparent distress. uncomfortable, Behavior is calm, cooperative, jl7 appropriate for age. Pain: Complains of pain in diaphragm Pain currently is 6 out of 10 on a pain scale. Quality of pain is described as pressure. Neuro: Level of Consciousness is awake, alert, obeys commands, Oriented to person, place, time, situation. Cardiovascular: Patient's skin is warm and dry. Respiratory: Airway is patent Respiratory effort is even, unlabored, Respiratory pattern is regular, symmetrical. GI: Abdomen is round distended, noted to have ascites, Bowel sounds Abdomen is tender to palpation X 4 quads. Derm: Skin is pink, warm \T\ dry. 09:17 Reassessment: Pt provided with crackers and peanut butter and water. jl7 10:14 Reassessment: Patient appears in no apparent distress at this time. No changes from jl7 previously documented assessment. Patient and/or family updated on plan of care and expected duration. Pain level reassessed. Patient is alert, oriented x 3, equal unlabored respirations, skin warm/dry/pink. BGL recheck 124, Dr. Correa notified. 11:03 Reassessment: Pt in [place] for paracentesis. ph 11:41 Reassessment: Patient appears in no apparent distress at this time. Patient and/or ph family updated on plan of care and expected duration. Pain level reassessed. Patient is alert, oriented x 3, equal unlabored respirations, skin warm/dry/pink. Pt returned from US, states that they removed 5 liters of fluid from his abdomen. 12:09 Reassessment: Patient appears in no apparent distress at this time. Patient and/or ph family updated on plan of care and expected duration. Pain level reassessed. Patient is alert, oriented x 3, equal unlabored respirations, skin warm/dry/pink. Pt d/c home. Vital Signs: 08:34 BP 132 / 68; Pulse 84; Resp 20; Temp 98.0; Pulse Ox 97% on R/A; Weight 90.72 kg; Height iw 5 ft. 11 in. (180.34 cm); 08:48 BP 109 / 64; Pulse 85; Resp 15; Pulse Ox 99% ; Pain 6/10; jl7 10:09 BP 105 / 67; Pulse 87; Resp 15; Pulse Ox 100% ; jl7 12:09 BP 102 / 68; Pulse 85; Resp 18; Temp 98.0; Pulse Ox 99% on R/A; ph 08:34 Body Mass Index 27.89 (90.72 kg, 180.34 cm) iw ED Course: 08:24 Patient arrived in ED. mr 08:24 Lalo Correa MD is Attending Physician. kdr 08:34 Melissa Sarmiento, JANETT is Primary Nurse. jl7 08:37 Triage completed. iw 08:41 Arm band placed on. iw 08:48 Patient has correct armband on for positive identification. Placed in gown. Bed in low jl7 position. Call light in reach. Side rails up X2. Pulse ox on. NIBP on. 08:48 Initial lab(s) drawn, by ca, sent to lab. Inserted saline lock: 20 gauge in right jl7 forearm, using aseptic technique. Blood collected. 11:37 Paracentesis Proc Guidance In Process Unspecified. EDMS 12:09 No provider procedures requiring assistance completed. IV discontinued, intact, ph bleeding controlled, No redness/swelling at site. Pressure dressing applied. Administered Medications: 09:17 Drug: Dextrose 10 % in Water 25 grams Route: IV; Rate: 250 bolus; Site: right forearm; jl7 09:45 Follow up: Response: No adverse reaction; IV Status: Completed infusion; IV Intake: jl7 250ml Medication: 08:48 VIS not applicable for this client. jl7 Intake: 09:45 IV: 250ml; Total: 250ml. jl7 Outcome: 11:52 Discharge ordered by . kdr 12:09 Discharged to home via wheelchair, with significant other. ph 12:09 Condition: good 12:09 Discharge instructions given to patient, significant other, Instructed on discharge instructions, follow up and referral plans. Demonstrated understanding of instructions, follow-up care. 12:10 Patient left the ED. ph Signatures: Dispatcher [employer] EDMS Lalo Correa MD MD kdr Rivera, Roselia mr Radha Cazares, RN JANETT Yolande Bautista RN RN ph Melissa Sarmiento RN RN jl7 Corrections: (The following items were deleted from the chart) 11:37 10:41 In radiology for Abdomen Limited+US.RAD.FROYLAN. EDHI EDHI
--- NOTE | 2022-05-08 11:53 | EDPHYS ---
Physician Documentation [facility] Name: Abdoulaye Mcdonald Age: 76 yrs Sex: Male : 1945 Arrival Date: 05/08/2022 Time: 08:24 Bed 8 Private MD: ED Physician Lalo Correa HPI: 05/08 10:14 This 76 yrs old Male presents to ER via Wheelchair with complaints of Abdominal kdr Swelling. 10:14 The patient presents with abdominal pain that is diffuse, abdominal distention that is kdr diffuse. Onset: The symptoms/episode began/occurred gradually, at an unknown time, Patient chronically has ascites and is fairly routinely tapped to relieve the pressure. It has now been 2 to 3 weeks since his last paracentesis. The symptoms do not radiate. Associated signs and symptoms: none. The symptoms are described as achy, crampy, dull, vague. Modifying factors: The symptoms are alleviated by nothing, the symptoms are aggravated by breathing deeply. Severity of pain: At its worst the pain was mild moderate just prior to arrival, in the emergency department the pain is unchanged. The patient has experienced similar episodes in the past, chronically. The patient has not recently seen a physician. Historical: - Allergies: 08:40 No Known Allergies; iw - Home Meds: 08:40 acarbose 25 mg Oral tab 1 tab daily [Active]; citalopram 40 mg tab 1 tab once daily iw [Active]; gabapentin 100 mg Oral cap [Active]; gemfibrozil 600 mg Oral tab 1 tab 2 times per day [Active]; hydrochlorothiazide 25 mg Oral tab 1 tab 2 times per day [Active]; Insulin Glargine Sub-Q [Active]; losartan 50 mg Oral tab 1 tab once daily [Active]; metformin 1,000 mg Oral tab 1 tab 2 times per day for Type 2 Diabetes Mellitus [Active]; - PMHx: 08:40 cirrhosis of liver; Hypertensive disorder; GI Bleed; diabetes mellitus; iw - PSHx: 08:40 back; Cholecystectomy; Esophageal band; iw - Immunization history:: Client reports receiving the 2nd dose of the Covid vaccine. - Social history:: Smoking status: Patient/guardian denies using tobacco, but has a distant history of tobacco abuse. ROS: 10:14 Constitutional: Negative for fever, chills, and weight loss, Eyes: Negative for injury, kdr pain, redness, and discharge, Neck: Negative for injury, pain, and swelling, Cardiovascular: Negative for chest pain, palpitations, and edema, Respiratory: Negative for shortness of breath, cough, wheezing, and pleuritic chest pain, Back: Negative for injury and pain, : Negative for injury, bleeding, discharge, and swelling, MS/Extremity: Negative for injury and deformity, Skin: Negative for injury, rash, and discoloration, Neuro: Negative for headache, weakness, numbness, tingling, and seizure activity. Psych: Negative for depression, anxiety, suicide ideation, homicidal ideation, and hallucinations, Allergy/Immunology: Negative for hives, rash, and allergies, Endocrine: Negative for neck swelling, polydipsia, polyuria, polyphagia, and marked weight changes, Hematologic/Lymphatic: Negative for swollen nodes, abnormal bleeding, and unusual bruising. 10:14 Abdomen/GI: Positive for abdominal pain, abdominal cramps, abdominal distension, Negative for nausea, vomiting, and diarrhea, black/tarry stool, rectal pain, rectal bleeding. Exam: 10:14 Constitutional: This is a well developed, well nourished patient who is awake, alert, kdr and in no acute distress. Head/Face: Normocephalic, atraumatic. Eyes: Pupils equal round and reactive to light, extra-ocular motions intact. Lids and lashes normal. Conjunctiva and sclera are non-icteric and not injected. Cornea within normal limits. Periorbital areas with no swelling, redness, or edema. Neck: Trachea midline, no thyromegaly or masses palpated, and no cervical lymphadenopathy. Supple, full range of motion without nuchal rigidity, or vertebral point tenderness. No Meningismus. Chest/axilla: Normal chest wall appearance and motion. Nontender with no deformity. No lesions are appreciated. Cardiovascular: Regular rate and rhythm with a normal S1 and S2. No gallops, murmurs, or rubs. Normal PMI, no JVD. No pulse deficits. Respiratory: Lungs have equal breath sounds bilaterally, clear to auscultation and percussion. No rales, rhonchi or wheezes noted. No increased work of breathing, no retractions or nasal flaring. Back: No spinal tenderness. No costovertebral tenderness. Full range of motion. Skin: Warm, dry with normal turgor. Normal color with no rashes, no lesions, and no evidence of cellulitis. MS/ Extremity: Pulses equal, no cyanosis. Neurovascular intact. Full, normal range of motion. Neuro: Awake and alert, GCS 15, oriented to person, place, time, and situation. Cranial nerves II-XII grossly intact. Motor strength 5/5 in all extremities. Sensory grossly intact. Cerebellar exam normal. Normal gait. Psych: Awake, alert, with orientation to person, place and time. Behavior, mood, and affect are within normal limits. 10:14 Abdomen/GI: Inspection: distension, that is moderate, that is severe, in the abdomen diffusely, obese Bowel sounds: diminished, in all quadrants, Palpation: mild abdominal tenderness, rebound tenderness, is not appreciated, voluntary guarding, is not appreciated, involuntary guarding, is not appreciated. Vital Signs: 08:34 BP 132 / 68; Pulse 84; Resp 20; Temp 98.0; Pulse Ox 97% on R/A; Weight 90.72 kg; Height iw 5 ft. 11 in. (180.34 cm); 08:48 BP 109 / 64; Pulse 85; Resp 15; Pulse Ox 99% ; Pain 6/10; jl7 10:09 BP 105 / 67; Pulse 87; Resp 15; Pulse Ox 100% ; jl7 12:09 BP 102 / 68; Pulse 85; Resp 18; Temp 98.0; Pulse Ox 99% on R/A; ph 08:34 Body Mass Index 27.89 (90.72 kg, 180.34 cm) iw MDM: 09:11 Data reviewed: vital signs, nurses notes. ED course: I discussed the case with Dr. vincent Moreno, he indicated he would perform the paracentesis as needed.. 10:14 ED course: Awaiting radiology to take the patient for ultrasound-guided paracentesis. kdr 11:52 Patient medically screened. [facility] 05/08 08:27 Order name: CBC with Diff; Complete Time: 10: [facility] 05/08 08:27 Order name: CMP; Complete Time: 10: kdr 05/08 08:27 Order name: Lipase; Complete Time: 10: [facility] 05/08 11:37 Order name: Paracentesis Proc Guidance EDNC 05/08 08:27 Order name: IV Saline Lock; Complete Time: 08:41 kdr 05/08 08:27 Order name: Labs collected and sent; Complete Time: 08:41 kdr Administered Medications: 09:17 Drug: Dextrose 10 % in Water 25 grams Route: IV; Rate: 250 bolus; Site: right forearm; jl7 09:45 Follow up: Response: No adverse reaction; IV Status: Completed infusion; IV Intake: jl7 250ml Disposition Summary: 05/08/22 11:52 Discharge Ordered Location: Home kdr Problem: new kdr Symptoms: have improved kdr Condition: Stable kdr Diagnosis - Abdominal pain, Generalized kdr - Other ascites kdr Followup: kdr - With: Private Physician - When: 2 - 3 days - Reason: If symptoms return, Further diagnostic work-up, Recheck today's complaints, Continuance of care, Re-evaluation by your physician Discharge Instructions: - Discharge Summary Sheet kdr - Ascites kdr - Paracentesis kdr - Abdominal Pain, Adult, [id number] kdr - Paracentesis, Care After kdr Forms: - Medication Reconciliation Form kdr - Thank You Letter kdr Signatures: Dispatcher [employer] Lalo Toledo MD MD kdr Radha Cazares, JANETT ROWLAND iw Melissa Sarmiento RN RN jl7 Corrections: (The following items were deleted from the chart) 11:37 09:10 Abdomen Limited+US.RAD.BRZ ordered. EDNC EDMS
[2022-05-08 12:16] VITALS: TEMP 98
[2022-05-08 12:21] VITALS: BP 102/68; O2SAT 99
== END 2022-05-08 12:10 | disposition home or self-care (01) ==
LOC: ER 08:21
DX: R18.8 Other ascites (principal); K74.60 Unspecified cirrhosis of liver; I10 Essential (primary) hypertension; E11.9 Type 2 diabetes mellitus without complications; Z79.4 Long term (current) use of insulin
CPT/HCPCS: 36415; 49083; 80053; 82947; 83690; 85025; 96365; 99284

== ENCOUNTER 2022-06-13 15:51 | Emergency (ER) | payer MEDICARE, OTHER ==
--- OUTSIDE RECORDS SUMMARY | 2022-06-13 15:56 | XMS REPORT | Continuity of Care Document ---
:1945 Author Organization [facility] t Address [address] [place] [address] Dr. [address]. [address] [place] [address] Care Team Providers Name Role Phone Sunday Orellana MD Primary Care Physician Alex Poole MD Attending Clinician ALEX POOLE [...] rs active active ity of problems problems [facility] Allergies, Adverse Reactions, Alerts Allergy Allergy Status Severity Reaction(s) Onset Inactive Treating Comm ents Source Name Type Date Date Clinician NO KNOWN Drug Active Univers ALLERGIE Class ity of S [facility] Social History Social Habit Start Date Stop Date Quantity Comments Source Exposure to 2021-12-01 2021-12-11 Not sure University SARS-CoV-2 00:00:00 13:24:00 [place] [facility]event[facility] Alcohol intake 2016-01-15 2016-01-15 Current [facility] 00:00:00 00:00:00 non-drinker of alcohol (finding) Tobacco use and 2016-01-11 2016-01-11 Smokeless tobacco [facility] exposure 00:00:00 00:00:00 non-user Tobacco Comment 2016-01-11 2016-01-11 quit cigars about [facility] 00:00:00 00:00:00 4 years ago History of 1996-01-11 Cigarette Smoker [facility] tobacco use 00:00:00 Sex Ass[birth year] At [birth year] [facility] 00:00:00 00:00:00 Smoking Status Start Date Stop Date Source Tobacco smoking [facility] xa consumption unknown Medical Bran ch Ex-smoker 2016-01-11 00:00:00 2016-01-11 [facility] Medications Ordered Filled Start Stop Current Ordering Indication Dosage Frequency Signature Comments Components Source Medication Medication Date Date Medication? Clinician (SIG) Name Name iopamidol 202- No [id number] 110mL 110 mL, Univers (ISOVUE 12-11 Intravenou ity o f 370-500 mL) 20:45: 20:45 s, ONCE, 1 [place] injection 00 :00 dose, On Medica l 110 mL [facility] 12/11/21 at 1545, Routine propranolol Yes 40mg Take 40 mg Methodi (INDERAL) 01-[address] 40 MG 14:58: daily. Hospita tablet 37 l cyanocobala Yes 100ug QD Take 100 M ethodi min 100 MCG 9-[address] tablet 14:58: mouth Hospita 37 daily. l insulin Yes 25U QD 25 Units Method i detemir 01-[address] (LEVEMIR) 14:58: Hospita 100 unit/mL 37 l injection metFORMIN Yes 1000mg Q.91147614 Take 1,000 Method[facility] (GLUCOPHAGE 01-10 [id number] mg by s t ) 1000 MG 14:58: 3D mouth 3 Hospi ta tablet 37 (three) l times a day. gabapentin Yes 400mg Q.49780551 Take 400 [facility] (NEURONTIN) 9-22 [id number] mg by s t 400 MG 14:58: [...] tablet 14:58: daily. Hospit a 37 l sertraline 2016-0 Yes 100mg QD Take 100 Me thodi (ZOLOFT) 9-[address] 100 MG 14:58: mouth Hospita tablet 37 daily. l hydrochloro 2016-0 Yes 25mg QD Take [...] 2015-0 Yes 1[drp] Q.5D Administer Methodi -timolol 9-[address] (COSOPT) 14:58: both eyes Hosp briana 22.3-6.8 37 2 (two) l mg/mL times a ophthalmic day. solution AMOXICILLIN 2016-0 Yes Q.5D Take by Met hodi ORAL 9-[address] 14:58: (two) Hospita 37 times a l day. esomeprazol 2015-0 Yes 40mg QD Take 40 mg Methodi e (NexIUM) 9-[address] 40 MG 14:58: daily Hospita capsule 37 before l breakfast. therapeutic 2015-0 Yes 1{tbl} QD Take 1 Me thodi multivitami 9-[address] n 14:58: mouth Hospita (THERAGRAN) 37 daily. l tablet dorzolamide 0 Yes 1[drp] Q.5D Administer Methodi -timolol -[address] (COSOPT) 14:58: both eyes Hosp briana 22.3-6.8 37 2 (two) l mg/mL times a ophthalmic day. solution AMOXICILLIN 2016-0 Yes Q.5D Take by Met hodi ORAL 9-[address] 14:58: (two) Hospita 37 times a l day. tamsulosin 2016-0 Yes .4mg QD Take 0.4 Met hodi (FLOMAX) 9-[address] 0.4 mg 14:58: mouth Hospita capsule,ext 37 daily. l ended release 24hr potassium 2016-0 Yes 10meq Q.5D Take 10 Meth danis chloride 9-[address] (K-DUR,KLOR 14:58: mouth 2 Hos boby -CON) 10 37 (two) l MEQ CR times a tablet day. pravastatin 2016-0 Yes 40mg QD Take 40 mg Methodi (PRAVACHOL) 9-[address] 40 MG 14:58: daily. Hospita tablet 37 l losartan 2016-0 Yes 25mg QD Take 25 mg Met hodi (COZAAR) 50 01-[address] MG tablet 14:58: daily. [...] 14:58: daily. Hospita tablet 37 l cyanocobala 2015- Yes 100ug QD Take 100 M ethodi [...] 14:58: daily. Hospita tablet 37 l metFORMIN 2016-0 Yes 1000mg Q.51452405 Take 1,000 Method[facility] (GLUCOPHAGE 01-10 [id number] mg by s t ) 1000 MG 14:58: 3D mouth 3 Hospi ta tablet 37 (three) l times a day. gabapentin 2016-0 Yes 400mg Q.86254474 Take 400 Method[facility] (NEURONTIN) 9-22 [id number] mg by s t 400 MG 14:58: [...] 14:58: mouth Hospita tablet 37 daily. l cyanocobala 2016-0 Yes 100ug QD Take 100 M ethodi min 100 MCG 9-[address] tablet 14:58: mouth Hospita 37 daily. l insulin 2016-0 Yes 25U QD 25 Units Method i detemir 9-[address] (LEVEMIR) 14:58: Hospita 100 unit/mL 37 l injection esomeprazol 0 Yes 40mg QD Take 40 mg Methodi e (NexIUM) [address] 40 MG 14:58: daily [...] Hospita 37 times a l day. metFORMIN 0 Yes 1000mg Q.61048378 Take 1,000 Methodi (GLUCOPHAGE 01-10 [id number] mg by s t ) 1000 MG 14:58: 3D mouth 3 Hospi ta tablet 37 (three) l times a day. gabapentin 20160 Yes 400mg Q.[id number] Take 400 Methodi (NEURONTIN) 01-10 [id number] mg by s t 400 MG 14:58: 3D mouth 3 Hospita capsule 37 (three) l times a day. pravastatin 20160 Yes 40mg QD Take 40 mg Methodi (PRAVACHOL) 01-[address] 40 MG 14:58: daily. Hospita tablet 37 l sertraline 20160 Yes 100mg QD Take 100 Me thodi (ZOLOFT) 9-[address] 100 MG 14:58: mouth Hospita tablet 37 daily. l tamsulosin 2016-0 Yes .4mg QD Take 0.4 Met hodi (FLOMAX) 9-[address] 0.4 mg 14:58: mouth Hospita capsule,ext 37 daily. l ended release 24hr tamsulosin 2016-0 Yes .4mg QD Take 0.4 Met hodi (FLOMAX) 9-[address] 0.4 mg 14:58: mouth Hospita capsule,ext 37 daily. l ended release 24hr potassium 2015- Yes 10meq Q.5D Take 10 Meth danis [...] 14:58: daily. Hospit a 37 l hydrochloro 2015- Yes 25mg QD Take 25 mg Methodi [...] QD Take 40 mg Methodi e (NexIUM) - by mouth st 40 MG 14:58: daily Hospita capsule 37 before l breakfast. therapeutic Yes 1{tbl} QD Take 1 Me thodi multivitami - tablet by st n 14:58: mouth Hospita (THERAGRAN) 37 daily. l tablet potassium 0 Yes 10meq Q.5D Take 10 Meth danis chloride 9-[address] (K-DUR,KLOR 14:58: mouth 2 Hos boby -CON) 10 37 (two) l MEQ CR times a tablet day. dorzolamide 0 Yes 1[drp] Q.5D Administer Methodi -timolol -[address] (COSOPT) 14:58: both eyes Hosp briana 22.3-6.8 37 2 (two) l mg/mL times a ophthalmic day. solution AMOXICILLIN 2016-0 Yes Q.5D Take by Met hodi ORAL 9-[address] 14:58: (two) Hospita 37 times a l day. metFORMIN 2016-0 Yes 1000mg Q.[id number] Take 1,000 Methodi (GLUCOPHAGE 9-22 [id number] mg by s t ) 1000 MG 14:58: 3D mouth 3 Hospi ta tablet 37 (three) l times a day. gabapentin 2016-0 Yes 400mg Q.[id number] Take 400 Methodi (NEURONTIN) 9-22 [id number] mg by s t 400 MG 14:58: [...] mouth Hospita tablet 37 daily. l metFORMIN 2016-0 Yes 1000mg Q.[id number] Take 1,000 Methodi (GLUCOPHAGE 9-22 [id number] mg by s t ) 1000 MG 14:58: 3D mouth 3 Hospi ta tablet 37 (three) l times a day. tamsulosin 2016-0 Yes .4mg QD Take 0.4 [...] tablet 14:58: daily. Hospit a 37 l losartan 2016-0 Yes 25mg QD Take 25 [...] Hospita (THERAGRAN) 37 daily. l tablet gabapentin Yes 400mg Q.[id number] Take 400 Methodi (NEURONTIN) 01-10 [id number] mg by s t 400 MG 14:58: 3D mouth 3 Hospita capsule 37 (three) l times a day. dorzolamide 0 Yes 1[drp] Q.5D Administer Methodi -timolol 01-[address] (COSOPT) 14:58: both eyes Hosp briana 22.3-6.8 37 2 (two) l mg/mL times a ophthalmic day. solution AMOXICILLIN 2016-0 Yes Q.5D Take by Met hodi ORAL 01-[address] 14:58: (two) Hospita 37 times a l day. finasteride 0 Yes 5mg QD Take 5 mg M ethodi (PROSCAR) 5 01-[address] mg tablet 14:58: daily. Hospit a 37 l metFORMIN 2015-0 Yes 1000mg Q.[id number] Take 1,000 Method[facility] (GLUCOPHAGE 01-10 [id number] mg by s t ) 1000 MG 14:58: 3D mouth 3 Hospi ta tablet 37 (three) l times a day. gabapentin 0 Yes 400mg Q.[id number] Take 400 Methodi (NEURONTIN) - [id number] mg by s t 400 MG 14:58: 3D mouth 3 Hospita capsule 37 (three) l times a day. hydrochloro 2015-0 Yes 25mg QD Take 25 mg Methodi thiazide 9-[address] (HYDRODIURI 14:58: daily. Hosp briana L) 25 MG 37 l tablet latanoprost Yes 1[drp] QD Administer Methodi (XALATAN) [...] latanoprost Yes 1[drp] QD Administer Methodi (XALATAN) - [address] 0.005 % 00:00: both eyes Hospi ta ophthalmic 00 nightly. l solution latanoprost Yes 1[drp] QD Administer [facility] (XALATAN) 10-[address] 0.005 % 00:00: both eyes Hospi ta ophthalmic 00 nightly. l solution No known No Univers medications [facility] No known No Univers medications [facility] No known No Univers medications [facility] Vital Signs Vital Name Observation Time Observation Value Comments Source Systolic blood 2021-12-11 19:56:00 147 mm[Hg] Univer sity [facility] Diastolic blood 2021-12-11 19:56:00 88 mm[Hg] [facility] 2021-12-11 19:56:00 78 /min Universi [facility] Respiratory rate 2021-12-11 19:56:00 13 /min [facility] Oxygen saturation in 2021-12-11 19:56:00 96 /min University of Arterial blood by [facility] Pulse oximetry Branch Body temperature 2021-12-11 17:37:00 36.06 [facility] Body height 2021-12-11 17:37:00 180.3 cm Universi ty of [facility] Body weight 2021-12-11 17:37:00 91.627 kg Universi ty of [facility] BMI 2021-12-11 17:37:00 28.17 kg/m2 Universi ty [facility] Systolic blood 2019-10-18 19:49:00 149 mm[Hg] Univer sity of pressure [facility] Diastolic blood 2019-10-18 19:49:00 87 mm[Hg] [facility] Heart rate 2019-10-18 19:49:00 81 /min Universi ty [facility] Body temperature 2019-10-18 19:49:00 36.17 [facility] Respiratory rate 2019-10-18 19:49:00 16 /min [facility] Oxygen saturation in 2019-10-18 19:49:00 97 /min [facility] Arterial blood by [facility] Pulse oximetry Branch Procedures Procedure Date / Time Performing Clinician Source Performed ABORH CONFIRMATION (LAB 2021-12-11 19:45:00 Alex Poole [facility] ONLY) [facility] CT ANGIOGRAM 2021-12-11 19:36:42 [facility] Alex [facility] ABDOMEN/PELVIS [facility] XR CHEST 1 VW 2021-12-11 18:35:31 [facility] LACTIC ACID WHOLE BLOOD 2021-12-11 18:21:00 [facility] HB ABO GROUPING 2021-12-11 18:20:00 [facility] Alex [facility] LIPASE 2021-12-11 18:19:00 [facility] TROPONIN I 2021-12-11 18:19:00 [facility] Alex [facility] COMP. METABOLIC PANEL 2021-12-11 18:19:00 Alex Poole [facility] ([id number]) Medical Branch CBC WITH DIFF 2021-12-11 18:19:00 [facility] PROTHROMBIN TIME / INR 2021-12-11 18:19:00 Alex Poole [facility] ACTIVATED PARTIAL 2021-12-11 18:19:00 Alex Poole [facility] THRMPLAS VIKKI [facility] URINALYSIS 2021-12-11 18:19:00 [facility] N-TERMINAL PRO-BNP 2021-12-11 18:19:00 Alex Poole [facility] NOTICE OF PRIVACY 2021-12-11 17:30:58 Doctor Unassigned, No [facility] PRACTICES Name [facility] Plan of Care Planned Activity Planned Date Details Comments Source Future Scheduled 2022-04-04 65+ PNEUMOCOCCAL [facility] Hospital Test 01:26:36 VACCINE (1 - PCV) [code = 65+ PNEUMOCOCCAL VACCINE (1 - PCV)] Future Scheduled 2022-04-04 INFLUENZA VACCINE Method ist Hospital Test 01:26:36 [code = INFLUENZA VACCINE] Future Scheduled 2022-04-04 COVID[facility]19 [facility] 01:26:36 [code = COVID-19 VACCINE (#1)] Future Scheduled 2022-04-04 COLONOSCOPY SCREENING [facility] Test 01:26:36 [code = COLONOSCOPY SCREENING] Future Scheduled 2022-04-04 SHINGLES VACCINES (1 Met [facility] Test 01:26:36 of 2) [code = SHINGLES VACCINES (1 of 2)] Future Scheduled 2022-04-04 65+ PNEUMOCOCCAL Methodi Hospital Test 01:26:36 VACCINE (1 - PCV) [code = 65+ PNEUMOCOCCAL VACCINE (1 - PCV)] Future Scheduled 2022-04-04 INFLUENZA VACCINE Method ist Hospital Test 01:26:36 [code = INFLUENZA VACCINE] Future Scheduled 2022-04-04 COVID-19 VACCINE (#[facility]) [facility] Test 01:26:36 [code = COVID-19 VACCINE (#1)] Future Scheduled 2022-04-04 [facility] Test 01:26:36 [code = COLONOSCOPY SCREENING] Future Scheduled 2022-04-04 SHINGLES VACCINES (1 Met [facility] Test 01:26:36 of 2) [code = SHINGLES VACCINES (1 of 2)] Future Scheduled 2022-04-04 65+ PNEUMOCOCCAL Methodi Hospital Test 01:26:36 VACCINE (1 - PCV) [code = 65+ PNEUMOCOCCAL VACCINE (1 - PCV)] Future Scheduled 2022-04-04 INFLUENZA VACCINE Method ist Hospital Test 01:26:36 [code = INFLUENZA VACCINE] Future Scheduled 2022-04-04 COVID-19 VACCINE (#1) Me [facility] Hospital Test 01:26:36 [code = COVID-19 VACCINE (#1)] Future Scheduled 2022-04-04 COLONOSCOPY SCREENING [facility] Test 01:26:36 [code = COLONOSCOPY SCREENING] Future Scheduled 2022-04-04 SHINGLES VACCINES (1 Met [facility] Test 01:26:36 of 2) [code = SHINGLES VACCINES (1 of 2)] Future Scheduled 2022-04-04 65+ PNEUMOCOCCAL Methodi Hospital Test 01:26:36 VACCINE (1 - PCV) [code = 65+ PNEUMOCOCCAL VACCINE (1 - PCV)] Future Scheduled 2022-04-04 INFLUENZA VACCINE Method is Hospital Test 01:26:36 [code = INFLUENZA VACCINE] Future Scheduled 2022-04-04 COVID-19 VACCINE (#1) [facility] Test 01:26:36 [code = COVID-19 VACCINE (#1)] Future Scheduled 2022-04-04 COLONOSCOPY SCREENING [facility] Test 01:26:36 [code = COLONOSCOPY SCREENING] Future Scheduled 2022-04-04 SHINGLES VACCINES (1 Met [facility] Test 01:26:36 of 2) [code = SHINGLES VACCINES (1 of 2)] Future Scheduled 2022-02-21 HEPATITIS B VACCINES Met [facility] Test 05:20:07 (1 of 3 - 3-dose series) [code = HEPATITIS B VACCINES (1 of 3 - 3-dose series)] Future Scheduled 2022-02-21 COVID-19 VACCINE (#1) [facility] Test 05:20:07 [code = COVID-19 VACCINE (#1)] Future Scheduled 2022-02-21 COLONOSCOPY SCREENING [facility] Test 05:20:07 [code = COLONOSCOPY SCREENING] Future Scheduled 2022-02-21 SHINGLES VACCINES (1 [facility] Test 05:20:07 of 2) [code = SHINGLES VACCINES (1 of 2)] Future Scheduled 2022-02-21 65+ PNEUMOCOCCAL Methodi [facility] Test 05:20:07 VACCINE (1 - PCV) [code = 65+ PNEUMOCOCCAL VACCINE (1 - PCV)] Future Scheduled 2022-02-21 INFLUENZA VACCINE Method [facility] Test 05:20:07 [code = INFLUENZA VACCINE] Future Scheduled 2021-12-19 HEPATITIS B VACCINES [facility] Test 20:37:05 (1 of 3 - 3-dose series) [code = HEPATITIS B VACCINES (1 of 3 - 3-dose series)] Future Scheduled 2021-12-19 COVID-19 VACCINE (#1) [facility] Test 20:37:05 [code = COVID-19 VACCINE (#1)] Future Scheduled 2021-12-19 COLONOSCOPY SCREENING [facility] Test 20:37:05 [code = COLONOSCOPY SCREENING] Future Scheduled 2021-12-19 SHINGLES VACCINES (1 [facility] Test 20:37:05 of 2) [code = SHINGLES VACCINES (1 of 2)] Future Scheduled 2021-12-19 65+ PNEUMOCOCCAL Methodi [facility] Test 20:37:05 VACCINE (1 - PCV) [code = 65+ PNEUMOCOCCAL VACCINE (1 - PCV)] Future Scheduled 2021-12-19 INFLUENZA VACCINE Method [facility] Test 20:37:05 [code = INFLUENZA VACCINE] Encounters Start End Encounter Admission Attending Care Care Encounter Source Date/Time Date/Time Type Type Clinicians Facility Department ID 2021-12-11 2021-12-11 Emergency [facility] [id number] Univers 12:44:00 15:46:00 Alex AMOR [id number] shukri harman [facility] [id number] [facility] [id number] [place] [address] Branch 2021-12-11 2021-12-11 Emergency X EMORY [facility] ERT [id number] Univers 12:44:00 15:46:00 ALEX moreno [facility] 2019-10-18 2019-10-30 Urgent Pob1, Acute Care Clinic [facility] [id number]. [id number] Univers 14:46:42 16:21:40 Care [facility] [id number] [facility] [place] [id number] [facility]io [id number] Mo dical nal [address] [facility] [address] One 2019-10-20 2019-10-20 [facility] [id number] Univers 00:00:00 00:00:00 [facility] [id number] [facility] [place] [id number] [facility] Professio [id number] Mo dical nal [address] [facility] One 2019-10-18 2019-10-18 Laboratory Lab, [facility] Fam Pob I [facility] [id number] Univers 14:38:53 14:58:53 Only Edilma [facility] [id number] [facility] [place] [id number] [place] as Professio [id number] [address] Office [facility] One 2019-10-18 2019-10-18 Outpatient R CHACHO [facility] [id number] Univers 14:40:00 14:40:00 [facility] 2019-10-18 2019-10-18 Outpatient R [facility] [id number] Univers 14:40:00 14:40:[address] [facility] Results Test Description Test Time Test Comments Results Result Comments Source ABORH Confirmation (Lab Only) 2021-12-11 20:16:20 Test Item Value Reference Range Interpretation Comme nts ABO & RH (test code = 20) B Positive Pe rformed at [facility] Laboratory Services - [facility] Blood [address] [place] [id number] Free: [phone] A No. [id number] [facility] - ONCE [id number] 19:30:27 Test Item Value Reference Range Interpretation Comments ABO & RH (test code B Positive Performe d at [facility] = 20) Laboratory Serv ices - [facility] Blood Bank[address] [place] [address]Xein Free: [phone] A No. [id number] IAT (test code = Negative Performed a t [facility] 1185) Laboratory Serv [facility] Blood Bank[address] [place] [address]Ukmc Free: [phone] A No. [id number] [facility] Hospital[facility] [id number] 19:05:15 Test Item Value Reference Interpretation Comments Range TROPONIN I (test 0.004 ng/mL See_Comment [Automated code = 0543513896) message] The system which generated this result [...] biotin. Lab Interpretation Normal (test code = 20678-0) [facility]AL [id number] 19:01:53 Test Item Value Reference Range Interpretation Comments NT-proBNP (test code 140 pg/mL See_Comment [Autom ated = 5280546719) message] The system which generated this result transmitted reference range : <=450. The reference range was not used to interpret this result as normal/abnormal . MYKEL (test code = MYKEL) Biotin has been reported to cause a negative bias, interpret results relative to patient's use of biotin. Lab Interpretation Normal (test code = 57460-1) [facility]OLIC PANEL (21239)2021-12-11 18:54:15 Test Item Value Reference Range Interpretation Comments NA (test code = 138 mmol/L 135-145 4527422216) K (test code = 4.0 mmol/L 3.5-5 1397720331) CL (test code = 103 mmol/L 98-108 5401993358) CO2 TOTAL (test code = 31 mmol/L 23-31 7040840755) AGAP (test code = 2-16 8453356651) BUN (test code = 19 mg/dL 7-23 2060731078) GLUCOSE (test code = 141 mg/dL 70-110 H 1851606716) CREATININE (test code = 0.53 mg/dL 0.6-1.25 L 9143339934) TOTAL BILI (test code = 1.7 mg/dL 0.1-1.1 H 9222446587) CALCIUM (test code = 9.0 mg/dL 8.6-10.6 0834491272) T PROTEIN (test code = 5.5 g/dL 6.3-8.2 L 6163985236) ALBUMIN (test code = 3.7 g/dL 3.5-5 9460281217) ALK PHOS (test code = 91 U/L 34-122 7697628312) ALTv (test code = 26 U/L 5-50 1742-6) AST(SGOT) (test code = 29 U/L 13-40 6259143425) eGFR (test code = mL/min/1.73m2 2381890267) MYKEL (test code = MYKEL) Association of [...] tests). Lab Interpretation Abnormal (test code = 60602-2) [facility] 18:54:15 Test Item Value Reference Range Interpretation Comments LIPASE (test code = 3545116258) 115 U/L 0-220 Lab Interpretation (test code = Normal 90785-8) [facility] HospitalACTIVATED PARTIAL THRMPLAS [id number] 18:50:55 Test Item Value Reference Range Interpretation Comments APTT Patient (test See_Comment [Automat ed code = 3173-2) message] The system which generated this result transmitted reference range : 23 - 38 Seconds . The reference range was not used to interpr et this result as normal/abnormal . MYKEL (test code = MYKEL) The [facility] patient population mean normal value for aPTT is 30 seconds. Lab Interpretation Normal (test code = 75412-1) [facility] HospitalPROTHROMBIN TIME / [id number] 18:48:51 Test Item Value Reference Range Interpretation [...] tions. Lab Interpretation (test Normal code = 73976-4) [facility] HospitalCBC WITH [id number] 18:41:33 Test Item Value Reference Range Interpretation Comments WBC (test code = See_Comment L [Automated 8789-2) message] The sy stem which generated this [...] (test code = 78.1 fL 38.5-51.6 H 24742-7) RDW-CV (test code = 26.1 % 12.1-15.4 H 788-0) PLT (test code = See_Comment L [Automated 777-3) message] The sy stem which generated this result transmitted reference range : 150 - 328 10*3/ ?L. The reference r karolina was not used to interpret this result as normal/abnormal . MPV (test code = 10.1 fL 9.8-13 53699-2) NRBC/100 WBC (test See_Comment [Automat ed code = 6133736975) message] The system which generated this result transmitted reference range : 0.0 - 10.0 /100 WBCs. The refer ence range was not u sed to interpret th is result as normal/abnormal . NRBC x10^3 (test code See_Comment [Auto mated = 2072458062) message] The s ystem which generated this result transmitted reference range : 10*3/?L. The reference range was not used to interpret this result as normal/abnormal . GRAN MAT (NEUT) % 74.1 % (test code = 770-8) IMM GRAN % (test code 0.50 % = 2506984404) LYMPH % (test code = 13.8 % 736-9) MONO % (test code = 7.7 % 5905-5) EOS % (test code = 3.4 % 713-8) BASO % (test code = 0.5 % 706-2) GRAN MAT x10^3(ANC) 3.07 10*3/uL 1.99-6.95 (test code = 8391702492) IMM GRAN x10^3 (test 0-0.06 code = 1526789603) LYMPH x10^3 (test code 0.57 10*3/uL 1.09-3.23 L = 731-0) MONO x10^3 (test code 0.32 10*3/uL 0.36-1.02 L = 742-7) EOS x10^3 (test code = 0.14 10*3/uL 0.06-0.53 711-2) BASO x10^3 (test code 0.01-0.09 = 704-7) Lab Interpretation Abnormal (test code = 36994-6) [facility]"
[2022-06-13 16:47] LABS: Absolute Lymphocytes (CBC) 0.5 K/uL (0.7-4.9); Lymphocytes % 10.8 % (15.3-44.8); MCV 80.2 fL (80-100); MPV 7.4 fL (7.6-11.3); RBC Red Blood Cell Count 2.47 M/uL (4.33-5.43)
[2022-06-13 16:50] LABS: Protime INR 1.39
[2022-06-13 16:55] LABS: Hematocrit 19.8 % (39.6-49.0)
[2022-06-13 17:01] LABS: Albumin 2.5 g/dL (3.4-5.0); Bilirubin Direct 0.5 mg/dL (0-0.2); Bilirubin Total 1.5 mg/dL (0.2-1.0); Magnesium 1.6 mg/dL (1.6-2.4); Potassium 3.9 mmol/L (3.5-5.1); Protein, Total 6.3 g/dL (6.4-8.2)
--- NOTE | 2022-06-13 18:06 | RAD REPORT ---
EXAM DESCRIPTION: RAD - Chest Single View - 06/13/2022 5:16 pm CLINICAL HISTORY: ABDOMINAL DISTENTION COMPARISON: 03/08/2022 FINDINGS: Lines: None. Lungs: No evidence of edema or pneumonia. Pleural: No significant pleural effusions or pneumothorax. Cardiac: The heart size is within normal limits. Mediastinum: Within normal limits. Bones: No acute fractures. Other: None IMPRESSION: No acute cardiopulmonary disease.
--- NOTE | 2022-06-13 18:34 | ER ---
Nurse's Notes [facility] Name: Abdoulaye Mcdonald Age: 76 yrs Sex: Male : 1945 Arrival Date: 06/13/2022 Time: 15:54 Bed 19 Private MD: Pedro Pablo Ferguson H Diagnosis: Anemia in other chronic diseases classified elsewhere;Unspecified cirrhosis of liver;GI Bleed/ Gastrointestinal hemorrhage, unspecified Presentation: 06/13 16:07 Chief complaint: Patient states: due for a paracentesis , last done a month ago, was iw sent to ER by Dr. Ferguson. Coronavirus screen: At this time, the client does not indicate any symptoms associated with coronavirus-19. Ebola Screen: Patient negative for fever greater than or equal to 101.5 degrees Fahrenheit, and additional compatible Ebola Virus Disease symptoms Patient denies exposure to infectious person. Patient denies travel to an Ebola-affected area in the 21 days before illness onset. No symptoms or risks identified at this time. Initial Sepsis Screen: Does the patient meet any 2 criteria? No. Patient's initial sepsis screen is negative. Does the patient have a suspected source of infection? No. Patient's initial sepsis screen is negative. Risk Assessment: Do you want to hurt yourself or someone else? Patient reports no desire to harm self or others. Onset of symptoms was June 13, 2022. 16:07 Method Of Arrival: Ambulatory iw 16:07 Acuity: BRANDON 3 iw Triage Assessment: 17:57 General: Appears uncomfortable, Behavior is cooperative, appropriate for age. Pain: ap3 Complains of pain in abdomen. Neuro: Level of Consciousness is awake, alert, obeys commands, Oriented to person, place, time, situation, Speech is normal. Respiratory: Airway is patent Respiratory effort is even, unlabored, Respiratory pattern is regular, symmetrical. GI: Abdomen is distended, Reports hemorrhoids. Historical: - Allergies: 16:08 No Known Allergies; iw - Home Meds: 16:08 acarbose 25 mg Oral tab 1 tab daily [Active]; citalopram 40 mg tab 1 tab once daily iw [Active]; gabapentin 100 mg Oral cap [Active]; gemfibrozil 600 mg Oral tab 1 tab 2 times per day [Active]; hydrochlorothiazide 25 mg Oral tab 1 tab 2 times per day [Active]; Insulin Glargine Sub-Q [Active]; losartan 50 mg Oral tab 1 tab once daily [Active]; metformin 1,000 mg Oral tab 1 tab 2 times per day for Type 2 Diabetes Mellitus [Active]; - PMHx: 16:08 cirrhosis of liver; Hypertensive disorder; GI Bleed; diabetes mellitus; iw - PSHx: 16:08 back; Cholecystectomy; Esophageal band; iw - Immunization history:: Adult Immunizations unknown. - Social history:: Smoking status: Patient denies any tobacco usage or history of. Screenin:42 [facility] ED Fall Risk Assessment (Adult) History of falling in the last 3 months, ap3 including since admission No falls in past 3 months (0 pts). Abuse screen: Denies threats or abuse. Nutritional screening: No deficits noted. Tuberculosis screening: No symptoms or risk factors identified. Assessment: 17:58 GI: Bowel sounds present X 4 quads. Abd is non tender. ap3 19:30 Reassessment:. General: Appears comfortable, Behavior is calm, cooperative. Pain: ha1 Complains of pain in bilateral shoulder Pain does not radiate. Pain currently is 5 out of 10 on a pain scale. Quality of pain is described as throbbing. Neuro: Level of Consciousness is awake, alert, obeys commands, Oriented to person, place, time, situation. Cardiovascular: Heart tones S1 S2 present Capillary refill < 3 seconds Patient's skin is warm and dry. Respiratory: Airway is patent Respiratory effort is even, unlabored, Respiratory pattern is regular, symmetrical. GI: Abdomen is distended, Bowel sounds present X 4 quads. Abd is non tender. 19:30 Musculoskeletal: Circulation, motion, and sensation intact. ha1 20:30 Reassessment: Patient and/or family updated on plan of care and expected duration. Pain ha1 level reassessed. Patient is alert, oriented x 3, equal unlabored respirations, skin warm/dry/pink. Patient states feeling better. 21:18 Reassessment: Patient and/or family updated on plan of care and expected duration. Pain ha1 level reassessed. Patient is alert, oriented x 3, equal unlabored respirations, skin warm/dry/pink. receiving blood transfusion. 22:20 Reassessment: Patient and/or family updated on plan of care and expected duration. Pain ha1 level reassessed. Patient is alert, oriented x 3, equal unlabored respirations, skin warm/dry/pink. 22:50 Reassessment: Patient and/or family updated on plan of care and expected duration. Pain ha1 level reassessed. Patient is alert, oriented x 3, equal unlabored respirations, skin warm/dry/pink. pain 9/10. notified care provider. 23:20 Reassessment: Patient and/or family updated on plan of care and expected duration. Pain ha1 level reassessed. Patient is alert, oriented x 3, equal unlabored respirations, skin warm/dry/pink. pain 6/10 Patient states symptoms have improved. Vital Signs: 16:07 BP 110 / 66; Pulse 98; Resp 18; Temp 98.7; Pulse Ox 99% on R/A; Weight 88.45 kg; Height iw 5 ft. 11 in. (180.34 cm); 17:58 BP 137 / 76; Pulse 96; Resp 17; Pulse Ox 98% on R/A; ap3 19:30 BP 145 / 78; Pulse 96; Resp 19 S; Pulse Ox 99% on R/A; ha1 21:37 BP 125 / 87; Pulse 100; Resp 19 S; Pulse Ox 98% on R/A; ha1 22:02 BP 133 / 70; Pulse 99; Resp 99; Temp 97.7; Pulse Ox 99% on R/A; ha1 23:02 BP 134 / 71; Pulse 98; Resp 18 S; Temp 97.8(O); Pulse Ox 99% on R/A; ha1 23:20 BP 129 / 70; Pulse 96; Resp 17 S; Pulse Ox 98% on R/A; ha1 16:07 Body Mass Index 27.20 (88.45 kg, 180.34 cm) iw ED Course: 15:54 Patient arrived in ED. as 15:54 Pedro Pablo Ferguson MD is Private Physician. as 15:57 [facility] cp 15:57 Sam Rodriguez DO is Attending Physician. cp 16:08 Triage completed. iw 16:09 Arm band placed on. iw 16:43 Inserted saline lock: 20 gauge in right antecubital area, using aseptic technique. iw 17:41 Karina Bland, RN is Primary Nurse. ap3 17:42 Patient has correct armband on for positive identification. Bed in low position. Call ap3 light in reach. Side rails up X 1. Adult w/ patient. monitoring tech on. Pulse ox on. NIBP on. Door closed. Noise minimized. Warm blanket given. 18:21 Bb Add On Sent. ap3 18:21 Type And Screen Sent. ap3 18:32 Rosa Forman PA-C is Hospitalizing Provider. cp 19:02 Initiated transfer by [facility], [facility]. wm 19:58 Inserted saline lock: 20 gauge in right forearm, using aseptic technique. zm 20:39 SARS RAPID Sent. ha1 21:44 Pt accepted for transfer by Dr. Jordan. wm 23:15 No provider procedures requiring assistance completed. ha1 23:15 Patient transferred, IV remains in place. ha1 Administered Medications: 18:48 Drug: ProTONIX (pantoprazole) 40 mg Route: IVP; Site: right antecubital; ap3 18:48 Drug: fentaNYL (PF) 25 mcg Route: IVP; Site: right antecubital; ap3 19:30 Drug: ProTONIX (pantoprazole) 8 mg/hr Route: IV; Rate: 25 ml/hr; Site: right ha1 antecubital; 20:05 Drug: Octreotide Infusion (50 mcg/hr) - (Octreotide 500 mcg, NS 0.9% 500 ml) Route: IV; ha1 Rate: 50 ml/hr; Site: right forearm; 23:08 Drug: fentaNYL (PF) 25 mcg Route: IVP; Site: right antecubital; ha1 23:20 Follow up: Response: No adverse reaction; Pain is decreased; RASS: Alert and Calm (0) ha1 23:13 Not Given (waiting on blood transfussion to be over): Lasix (furosemide) 20 mg IVP ha1 once; give over 2 minutes, between units of blood Medication: 23:15 VIS not applicable for this client. ha1 Outcome: 18:34 Decision to Hospitalize by Provider. cp 18:49 ER care complete, transfer ordered by . cp 23:15 Transferred by ground EMS to [facility]: [facility] ha1 23:15 Condition: stable 23:15 Discharge instructions given to patient, family, Instructed on the need for transfer, Demonstrated understanding of instructions. 23:30 Patient left the ED. ha1 Signatures: Soledad Callahan Irene, RN RN iw Yasir Jewell PA PA cp Prokisch, Amanda, RN RN ap3 Debbi Freire Zaina zm Ayala, Heidy, RN RN ha1 Corrections: (The following items were deleted from the chart) 23:12 21:37 Lasix (furosemide) 20 mg IVP in right antecubital ha1 ha1
--- NOTE | 2022-06-13 18:34 | EDPHYS ---
Physician Documentation [facility] Name: Abdoulaye Mcdonald Age: 76 yrs Sex: Male : 1945 Arrival Date: 06/13/2022 Time: 15:54 Bed 19 Private MD: Pedro Pablo Ferguson H ED Physician Sam Rodriguez HPI: 06/13 16:11 This 76 yrs old Male presents to ER via Ambulatory with complaints of Abdominal cp Swelling. 16:11 The patient presents with abdominal distention that is diffuse. Onset: The cp symptoms/episode began/occurred gradually. Associated signs and symptoms: Pertinent positives: shortness of breath. 16:11 Severity of pain: in the emergency department the pain is unchanged despite home cp interventions. The patient has experienced similar episodes in the past, chronically. 16:11 The symptoms are described as pressure. Modifying factors: the symptoms are aggravated cp by movement. Historical: - Allergies: 16:08 No Known Allergies; iw - Home Meds: 16:08 acarbose 25 mg Oral tab 1 tab daily [Active]; citalopram 40 mg tab 1 tab once daily iw [Active]; gabapentin 100 mg Oral cap [Active]; gemfibrozil 600 mg Oral tab 1 tab 2 times per day [Active]; hydrochlorothiazide 25 mg Oral tab 1 tab 2 times per day [Active]; Insulin Glargine Sub-Q [Active]; losartan 50 mg Oral tab 1 tab once daily [Active]; metformin 1,000 mg Oral tab 1 tab 2 times per day for Type 2 Diabetes Mellitus [Active]; - PMHx: 16:08 cirrhosis of liver; Hypertensive disorder; GI Bleed; diabetes mellitus; iw - PSHx: 16:08 back; Cholecystectomy; Esophageal band; iw - Immunization history:: Adult Immunizations unknown. - Social history:: Smoking status: Patient denies any tobacco usage or history of. ROS: 16:15 Constitutional: Negative for body aches, chills, fever, poor PO intake. cp 16:15 Cardiovascular: Positive for edema, Negative for chest pain, palpitations. cp 16:15 Respiratory: Positive for shortness of breath, at rest. Negative for cough, wheezing. Exam: 16:20 Constitutional: The patient appears in no acute distress, alert, awake, cp non-diaphoretic, non-toxic, well developed, well nourished, uncomfortable. 16:20 Head/Face: Normocephalic, atraumatic. cp 16:20 Eyes: Periorbital structures: appear normal, Pupils: equal, round, and reactive to light and accomodation, Conjunctiva: normal, no exudate, no injection, Sclera: no appreciated abnormality, Lids and lashes: appear normal, bilaterally. 16:20 ENT: External ear(s): are unremarkable, Nose: is normal, Mouth: Lips: moist, Oral mucosa: pink and intact, moist, Posterior pharynx: is normal, airway is patent, no erythema, no exudate. 16:20 Neck: ROM/movement: is normal, is supple, without pain, no range of motions limitations. 16:20 Chest/axilla: Inspection: normal. 16:20 Cardiovascular: Rate: normal, Rhythm: regular, Edema: ankle edema, that is mild, JVD: is not appreciated. 16:20 Respiratory: the patient does not display signs of respiratory distress, Respirations: shallow respirations, that is mild, Breath sounds: bronchial sounds, that are mild, are heard diffusely, decreased breath sounds, that are mild, diffuse, stridor, is not appreciated. 16:20 Abdomen/GI: Inspection: distension, that is moderate, Bowel sounds: active, all quadrants, Palpation: abdomen is soft and non-tender, in all quadrants. 16:20 Back: pain, that is moderate, ROM is painful, with all movement. 16:20 Skin: no rash present. 16:20 Neuro: Orientation: to person, place \T\ time. Mentation: is normal, Motor: moves all fours, general weakness. 18:18 ECG was reviewed by the Attending Physician. cp Vital Signs: 16:07 BP 110 / 66; Pulse 98; Resp 18; Temp 98.7; Pulse Ox 99% on R/A; Weight 88.45 kg; Height iw 5 ft. 11 in. (180.34 cm); 17:58 BP 137 / 76; Pulse 96; Resp 17; Pulse Ox 98% on R/A; ap3 19:30 BP 145 / 78; Pulse 96; Resp 19 S; Pulse Ox 99% on R/A; ha1 21:37 BP 125 / 87; Pulse 100; Resp 19 S; Pulse Ox 98% on R/A; ha1 22:02 BP 133 / 70; Pulse 99; Resp 99; Temp 97.7; Pulse Ox 99% on R/A; ha1 23:02 BP 134 / 71; Pulse 98; Resp 18 S; Temp 97.8(O); Pulse Ox 99% on R/A; ha1 23:20 BP 129 / 70; Pulse 96; Resp 17 S; Pulse Ox 98% on R/A; ha1 16:07 Body Mass Index 27.20 (88.45 kg, 180.34 cm) iw MDM: 16:34 Patient medically screened. cp 17:00 Differential diagnosis: gastritis, non-specific abd pain, Peptic Ulcer Disease, Perf. cp Duodenal Ulcer, Perf. Gastric Ulcer, Pyelonephritis, sepsis. 17:20 ED course: left msg on voice mail for DR Ferguson. cp 18:40 Data reviewed: vital signs, nurses notes, lab test result(s), EKG, radiologic studies, cp plain films. 18:40 Consideration of Admission/Observation Patient was admitted/placed on observation. cp Management of patient was discussed with the following: Hospitalist: Sammie Forman,[employer] will accept patient for admission after discussion. Test considered but Not performed: CT: abdomen/pelvis. 18:40 Historians other than the Patient: Spouse/Significant Other: assists with HPI. cp Care significantly affected by the following chronic conditions: Hypertension, Liver Disease. 18:45 ED course: attempt to contact on-call and patient's primary GI physician DR Marty cp left msg on voice mail times 2. 18:50 ED course: CT abdomen/pelvis requested by Sammie Forman after accepting admission. cp 18:55 ED course: requesting transfer to [facility] for continued care. cp 06/13 16:10 Order name: Basic Metabolic Panel cp 06/13 16:10 Order name: CBC with Diff cp 06/13 16:10 Order name: LFT's cp 06/13 16:10 Order name: Magnesium cp 06/13 16:10 Order name: NT PRO-BNP cp 06/13 16:10 Order name: PT-INR cp 06/13 16:10 Order name: Troponin HS cp 06/13 16:10 Order name: Ptt, Activated cp 06/13 16:51 Order name: Protime (+INR); Complete Time: 17:01 EDMS 06/13 18:34 Interpretation: Normal except: PT 15.3. 06/13 16:51 Order name: PTT, Activated Partial Thromb; Complete Time: 17:01 EDMA 06/13 16:55 Order name: CBC with Automated Diff; Complete Time: 17:01 EDMA 06/13 17:01 Interpretation: Normal except: RBC 2.47; HGB 6.4; HCT 19.8; MCH 26.0; RDW 18.6; MPV cp 7.4; ZOILA% 76.5; LYM% 10.8; LYMA 0.5. 06/13 17:01 Order name: Basic Metabolic Panel; Complete Time: 17:06 EDMS 06/13 17:07 Interpretation: Normal except: GLUC 144; CRE 0.58; CA 8.4. 06/13 17:01 Order name: Liver (Hepatic) Function; Complete Time: 17:06 EDMA 06/13 17:07 Interpretation: Normal except: BILIT 1.5; BILID 0.5; TP 6.3; ALB 2.5; GLOB 3.8; A/G 0.7. 06/13 17:01 Order name: Troponin High Sensitivity; Complete Time: 17:06 EDMA 06/13 16:10 Order name: XRAY Chest (1 view) 06/13 17:01 Order name: NT PRO-BNP; Complete Time: 17:06 EDMA 06/13 17:07 Interpretation: Reviewed. 06/13 17:01 Order name: Magnesium; Complete Time: 17:06 [facility] 06/13 17:02 Order name: Type And Screen 06/13 18:01 Order name: Bb Add On em1 06/13 18:07 Order name: RAD; Complete Time: 18:29 EDMA 06/13 18:29 Interpretation: Report reviewed. 06/13 18:47 Order name: CT Abd/Pelvis - IV Contrast Only 06/13 19:11 Order name: Type and Screen [facility] 06/13 19:18 Order name: SARS RAPID vc1 06/13 20:06 Order name: SARS-COV-2 Antigen Rapid; Complete Time: 20:43 EDMS 06/13 20:23 Order name: CT; Complete Time: 20:43 EDMA 06/13 23:03 Order name: Packed RBC Leukored [facility] 06/13 16:10 Order name: EKG; Complete Time: 16:11 cp 06/13 16:10 Order name: Cardiac monitoring; Complete Time: 17:42 cp 06/13 16:10 Order name: EKG - Nurse/Tech; Complete Time: 18:21 cp 06/13 16:10 Order name: IV Saline Lock; Complete Time: 16:43 cp 06/13 16:10 Order name: Labs collected and sent; Complete Time: 16:43 cp 06/13 16:10 Order name: O2 Per Protocol; Complete Time: 17:42 cp 06/13 16:10 Order name: O2 Sat Monitoring; Complete Time: 17:42 cp 06/13 18:31 Order name: Transfuse; Complete Time: 22:10 cp EC:18 Rate is 94 beats/min. Rhythm is regular. AL interval is normal. QRS interval is normal. cp QT interval is normal. T waves are Inverted in lead aVR. Interpreted by me. Reviewed by me. Administered Medications: 18:48 Drug: ProTONIX (pantoprazole) 40 mg Route: IVP; Site: right antecubital; ap3 18:48 Drug: fentaNYL (PF) 25 mcg Route: IVP; Site: right antecubital; ap3 19:30 Drug: ProTONIX (pantoprazole) 8 mg/hr Route: IV; Rate: 25 ml/hr; Site: right ha1 antecubital; 20:05 Drug: Octreotide Infusion (50 mcg/hr) - (Octreotide 500 mcg, NS 0.9% 500 ml) Route: IV; ha1 Rate: 50 ml/hr; Site: right forearm; 23:08 Drug: fentaNYL (PF) 25 mcg Route: IVP; Site: right antecubital; ha1 23:20 Follow up: Response: No adverse reaction; Pain is decreased; RASS: Alert and Calm (0) ha1 23:13 Not Given (waiting on blood transfussion to be over): Lasix (furosemide) 20 mg IVP ha1 once; give over 2 minutes, between units of blood Disposition: 18:32 Co-signature as Attending Physician, Sam MERCADO was immediately available on-site ms3 in the Emergency Department for consultation in the care of the patient. Disposition Summary: 06/13/22 18:49 Transfer Ordered Transfer Location: [facility] cp Reason: Higher level of care cp Condition: Stable(06/13/22 18:49) cp Problem: an acute exacerbation(06/13/22 18:49) cp Symptoms: have improved(06/13/22 18:49) cp Accepting Physician: Lani Jordan(06/13/22 23:30) ha1 Diagnosis - Anemia in other chronic diseases classified elsewhere cp - Unspecified cirrhosis of liver(06/13/22 18:49) cp - GI Bleed/ Gastrointestinal hemorrhage, unspecified(06/13/22 21:56) cp Forms: - Medication Reconciliation Form cp - SBAR form cp Signatures: Dispatcher [employer] EDMS aRdha Cazares, RN RN iw Yasir Jewell PA PA cp Karina Bland RN RN ap3 Sam Rodriguez DO DO ms3 Rosemary Jane RN RN ha1 Corrections: (The following items were deleted from the chart) 18:48 18:34 Inpatient Admission cp cp 18:48 18:34 Rosa Forman cp cp 18:48 18:34 Telemetry/MedSurg (Inpatient) cp cp 18:48 18:34 Stable cp cp 18:48 18:34 an ongoing problem cp cp 18:48 18:34 have improved cp cp 18:48 18:34 Standard cp cp 18:48 18:34 cp cp 18:48 18:34 Anemia, unspecified cp cp 18:48 18:34 GI Bleed/ Gastrointestinal hemorrhage, unspecified cp cp 18:48 18:34 Unspecified cirrhosis of liver cp cp 21:56 18:49 Doctor cp cp 21:56 21:56 Lani Jordan cp cp 23:30 21:56 Lani Jordan cp ha1
[2022-06-13] MEDS ORDERED: FENTANYL CITR 100 MCG/2 ML ONE ×2 (18:42→23:17)
[2022-06-13] MEDS ORDERED: PANTOPRAZOLE 40 MG INJ ONE (18:42)
[2022-06-13] MEDS ORDERED: OCTREOTIDE 500 MCG in NA CHLORIDE 0.9% 500 ML IV SCH (19:00)
[2022-06-13] MEDS ORDERED: PANTOPRAZOLE INJ 80 MG in NA CHLORIDE 0.9% 250 ML IV SCH (19:00)
[2022-06-13 20:06] LABS: SARS-CoV-2 Antigen Rapid Res Negative (Negative)
[2022-06-13] MEDS ORDERED: NA CHLORIDE 0.9% 1,000 ML ONE (20:08)
--- NOTE | 2022-06-13 20:22 | RAD REPORT ---
EXAM DESCRIPTION: CTAbdomen Pelvis W Contrast - 06/13/2022 8:09 pm CLINICAL HISTORY: ABDOMINAL DISTENTION COMPARISON: Abdomen Pelvis Wo Contrast dated 03/08/2022 TECHNIQUE: CT of the abdomen and pelvis was performed with IV contrast. All CT scans are performed using dose optimization technique as appropriate and may include automated exposure control or mA/KV adjustment according to patient size. FINDINGS: Lower chest: No acute abnormality. Mild nonspecific thickening of the distal esophagus. Ao rtic valve calcifications. Liver: Cirrhotic liver morphology. Recannulized umbilical vein. Minimal intrahepatic biliary ductal d ilatation . Biliary: Cholecystectomy. Stomach: No significant focal abnormality. Duodenum: No significant focal abnormality. Pancreas: No significant abnormality. Spleen: Splenomegaly Adrenal: No suspicious lesions. Kidney/ureter: No hydronephrosis. No renal calculi. Too small to characterize and/or benign appearing renal lesions are noted. Retroperitoneum: No retroperitoneal adenopathy. Vascular: No aneurysm. Bowel: No significant focal abnormality. Peritoneum: Moderate volume of ascites. Bladder: Mild circumferential bladder wall thickening which may be secondary to chronic bladder outle t obstruction. Reproductive: Prostatomegaly. Bones: No acute fracture. Multilevel degenerative changes are present in the spine. Other: n/a IMPRESSION: No acute intra-abdominal or pelvic finding. Cirrhosis with moderate ascites.
[2022-06-13] MEDS ORDERED: FUROSEMIDE 20 MG/ 2ML VIAL ONE (22:00)
[2022-06-14 00:11] VITALS: TEMP 98.7
[2022-06-14 00:14] VITALS: BP 125/87; O2SAT 98
--- NOTE | 2022-06-14 13:20 | EKG ---
Test Date: 2022-06-13 Test Time: 18:12:54 Pantry Steward/Stewardess: OSMAN MEASUREMENT RESULTS: Intervals: Rate: 94 WY: 156 QRSD: 98 QT: 384 QTc: 480 [place]: P: 81 WY: 156 QRS: -23 T: 52 INTERPRETIVE STATEMENTS: Normal sinus rhythm Cannot rule out Anteroseptal infarct, age undetermined Abnormal ECG Compared to ECG 03/08/2022 13:14:06 Left ventricular hypertrophy no longer present Myocardial infarct finding still present Electronically Signed On 06-14-22 13:18:21 PLATE STACKER by Phoenix Garcia
== END 2022-06-13 23:30 ==
LOC: ER 15:51
PROC: 30233N1 Transfusion of Nonautologous Red Blood Cells into Peripheral Vein, Percutaneous Approach (ICD-10-PCS; principal; 2022-06-13)
DX: K92.2 Gastrointestinal hemorrhage, unspecified (principal); D63.8 Anemia in other chronic diseases classified elsewhere; K74.60 Unspecified cirrhosis of liver; I10 Essential (primary) hypertension; E11.9 Type 2 diabetes mellitus without complications; Z79.4 Long term (current) use of insulin; Z20.822 Contact with and (suspected) exposure to COVID-19
CPT/HCPCS: 93005; 85025; 80048; 36415; 86900; 83735; 86850; 85610; 86901; 80076; 85730; 84484; 83880; 74177; 71045; 99285; 87811; 36430; Q9967; J2354; C9113 ×2; J3010 ×2; P9016; J7050; J7040 ×2; J1940